=== PATIENT | male | born 1935 | race Caucasian/White ===

== ENCOUNTER 2020-12-26 08:50 | Observation (INO) ==
--- NOTE | 2020-12-02 13:43 | PAT Medication Instructions ---
Medication Instructions Date of Service December 02, 2020 Home Medications atenolol 25 mg tablet 25 mg PO QAM vitamins A,C,W-pqsk-zbyvtx [PreserVision AREDS] 1 cap PO AMPM STOP taking 2 weeks before surgery vitamins A,C,U-feqa-nzcrwo [PreserVision AREDS] 1 cap PO AMPM Take morning of surgery With a small sip of water, OTHERWISE NOTHING TO EAT OR DRINK AFTER MIDNIGHT: atenolol 25 mg tablet 25 mg PO QAM Other Notes If you have any questions please call us at [phone] or [phone] or [phone] or [phone]
--- NOTE | 2020-12-07 13:50 | Anesthesiology Consultation ---
Date of Service December 07, 2020 Assessment & Plan (1) Encounter for pre-operative examination: Chart Review Chart Review: Acceptable Risk for Surgery (pending preop Covid testing ) and Patient seen in Pre Admission Testing Per PAT appt on 12/07/20, patient resides in [facility]. Denies any recent travel. Uses PPE. No known Covid positive contacts or Covid related symptoms. No known Covid infection in the past 90 days. Educated patient to follow up with surgeon's office regarding Covid testing- educated the preop Covid testing usually done 6-7 days prior to surgery. Educated on importance of self quarantining, social distancing and wearing mask in public both for the patient and household contacts. Teaching & Discussion Pre-Anesthesia Teaching/Discussion Notes: Instructed NPO after midnight before surgery,except medications with 15 cc of water. Medication instructions provided according to the [facility] guidelines. History Surgery Operation Date: 12/26/20 11:10 Proposed Procedures p Revision Left Uni Compartment Knee Arthroplasty to Total Knee Arthroplasty - Colin Pruett, DO Height/Weight Height: 5 ft 11 in Weight: 91.3 kg Allergies Allergy/AdvReac Type Severity Reaction Status Date / Time No Known Allergies Allergy Verified 11/22/20 12:15 Medications Home Medications Medication Instructions Recorded Confirmed Last Taken atenolol 25 mg tablet 25 mg PO QAM 08/23/20 11/22/20 Unknown vitamins A,C,Y-romd-exkoye 1 cap PO AMPM 11/22/20 11/22/20 Unknown [PreserVision AREDS] Past Medical History Medical History Hypertension Kidney stones Hx of and passed on own No current issues Macular degeneration Right eye- follows routinely with eye doctor Osteoarthritis Exercise / Class Metabolic Activity III < 4 Walking/Shop/Light housework (no chest pain or SOB with flat surface ambulation ) Past Surgical History Surgical History 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 No hx of seizures, stroke, MS. No hx of blood clots or blood transfusions Physical Exam Vital Signs VITALS BP 126/76 P 67 TEMP 98.6 SP02 96% RESP 16 Constitutional no acute distress ENMT Mouth: + small oral opening; no TMJ clicking Thyromental Distance: > or= 3.5 Finger Breadths (3.5) Mallampati Class: II Caps and crowns to molars Neck + limited neck extension (moderate ) Respiratory normal respiratory effort; no respiratory distress Auscultation: lungs clear to auscultation bilaterally; no wheezes Cardiovascular Rate/Rhythm: regular rate and regular rhythm Heart Sounds: no murmur Vessels: no carotid bruit Musculoskeletal Spine: no pain with cervical ROM Extremities: extremities normal to inspection Psychiatric Orientation: alert Testing Laboratory Results 12/07/20 14:11 12/07/20 14:11 PT 9.9 Seconds (9.0-12.0) 12/07/20 14:11 INR 1.0 (0.9-1.1) 12/07/20 14:11 APTT 27.5 Seconds (21.0-31.0) 12/07/20 14:11 Blood Type O Positive 12/07/20 14:11 Antibody Screen NEGATIVE 12/07/20 14:11 Electrocardiogram Date: 12/07/20 Sinus rhythm with first-degree AV block at 65 bpm. Left axis deviation. Chest X-Ray Date: 12/07/20 Mild cardiomegaly with no acute cardiopulmonary abnormality. There is elevation of the right hemidiaphragm with associated right basilar atelectasis..
[2020-12-07 14:37] LABS: Basophils # (auto) 0.02 K/uL (0-0.2); Basophils % (auto) 0.3 %; Eosinophils # (auto) 0.09 K/uL (0-0.5); Eosinophils % (auto) 1.2 %; Hematocrit (blood only) 44.7 % (42-52); Hemoglobin 15.2 g/dL (14.0-18.0); Immature Granulocytes # (auto) 0.01 K/uL (0.00-0.02); Immature Granulocytes % (auto) 0.1 %; Lymphocytes # (auto) 1.14 K/uL (1.2-3.4); Lymphocytes % (auto) 15.1 %; Mean Corpuscular Volume 97.2 fL (80-100); Mean Platelet Volume 11.1 fL (7.4-10.4); Monocytes % (auto) 10.6 %; Neutrophils % (auto) 72.7 %; Platelet Count 187 K/uL (130-400); RDW Coefficient of Variation 12.7 % (11.5-14.5); RDW Standard Deviation 45.4 fL (36.4-46.3); White Blood Count 7.56 K/uL (4.8-10.8)
--- NOTE | 2020-12-07 14:41 | XRay Report ---
TWO VIEW CHEST CLINICAL HISTORY: Preoperative examination. FINDINGS: PA and lateral chest radiographs are obtained. No prior studies are available for compariso n at the time of dictation. The heart is mildly enlarged noting atherosclerotic calcification of the thoracic aorta. There is elevation of the right hemidiaphragm with associated right basilar atelecta sis. No airspace consolidation or pleural effusion is identified. There is no pneumothorax. The bony thorax appears intact. Degenerative change is noted in the shoulders and thoracic spine. IMPRESSION: 1. Mild cardiomegaly with no acute cardiopulmonary abnormality. 2. There is elevation of the right hemidiaphragm with associated right basilar atelectasis.. ACT 112: Negative or not required by law. Electronically signed by: Ted Mondragon M.D. 12/07/2020 2:40 PM
[2020-12-07 14:47] LABS: Partial Thromboplastin Time 27.5 Seconds (21.0-31.0); Prothrombin Time 9.9 Seconds (9.0-12.0)
[2020-12-07 17:23] LABS: BUN Creatinine Ratio 22.5 (10-20); Calcium 9.2 mg/dl (8.5-10.1); Creatinine Clr Calc Pharmacy 47.8 ml/min; Est GFR (African American) 56.5; Est GFR (Non-African American) 48.7; Potassium 4.4 mmol/L (3.5-5.1)
--- NOTE | 2020-12-08 16:59 | Electrocardiogram Report ---
Test Reason : Blood Pressure : / mmHG Vent. Rate : 065 BPM Atrial Rate : 065 BPM P-R Int : 236 ms QRS Dur : 108 ms QT Int : 416 ms P-R-T Axes : -12 -34 049 degrees QTc Int : 432 ms Sinus rhythm with 1st degree A-V block Left axis deviation Abnormal ECG No previous ECGs available Confirmed by Nilton Higgins ([id number]) on 12/08/2020 4:59:24 PM Referred By: Colin Pruett Confirmed By:Shad Higgins
--- NOTE | 2020-12-22 08:50 | History & Physical Report ---
Date of Service December 22, 2020 Assessment & Plan (1) Osteoarthritis of left knee: We will proceed with a removal of the partial knee replacement and a conversion to a total knee arthroplasty. Postoperatively he will be kept overnight in the hospital for postoperative medical management. He will be placed on aspirin for DVT prophylaxis. He plans to use energy physical therapy upon discharge. 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 Primary Care Provider: Eulalio Beal MD Anibal is a pleasant 85-year-old male who had a left partial knee replacement done in [place] about 5 years ago. Unfortunately he has been having pain since. He constantly has a low level of knee pain but when he twists or turns it becomes very painful. He almost falls to the ground. X-rays and clinical examination have been diagnostic for some arthritis of the left knee. We gave him injections in the left knee and completely took care of his symptoms but only lasted briefly. After failing conservative treatment, he elected to proceed with a removal of hardware and conversion to a left total knee arthroplasty.. Allergies Allergy/AdvReac Type Severity Reaction Status Date / Time No Known Allergies Allergy Verified 12/13/20 15:35 Home Medications Medication Instructions Recorded Confirmed Type atenolol 25 mg tablet 25 mg PO QAM 08/23/20 12/13/20 History vitamins A,C,H-juno-exbtlm 1 cap PO AMPM 11/22/20 12/13/20 History [PreserVision AREDS] hydrocodone 5 mg-acetaminophen 325 1 tab PO Q6 PRN #30 tab 12/09/20 12/13/20 Rx mg tablet Past Med/Surg History Medical History Hypertension Kidney stones Hx of and passed on own No current issues Macular degeneration Right eye- follows routinely with eye doctor Osteoarthritis Surgical History 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 S/P cataract surgery Family History Father Myocardial infarction Mother Myocardial infarction Brother Melanoma Denies family history of Ovarian cancer Prostate cancer Breast cancer Colorectal cancer Social History Smoking Status: Never smoker Second Hand Exposure: No; Hx Alcohol Use: Yes Alcohol type: wine Hx Substance Use: No Preferred Language: Danish Communication Ability: Effective Visual Impairment: No Limitations Hearing Ability: Normal Hands And Dial Inspector Required: No Beliefs That Will Affect Care: None marital status: Life Partner Current Living Situation: Significant Other current occupational status: retired Feels Safe at Home: Yes Childhood Exposure to Second-Hand Smoke: No Dental Care, Regularly: Yes Physical Activity Frequency: 1-2 Times per Week Seatbelt Use: always Sunscreen Use: No Assistive Devices: Glasses Review of Systems All systems reviewed & are unremarkable except as noted in HPI & below. Physical Exam On physical examination of the left knee, there is no signs of infection. He has decent motion of 0 to 120 degrees. Is no effusion. He has pain over the distal medial and lateral femoral condyles. Is a lot of pain along the medial joint line as well.. Constitutional WD/WN, vitals as above Eyes PERRL, conjunctivae normal, anicteric sclerae ENMT external ear and nose normal, oropharynx normal Neck trachea midline, no thyromegaly Respiratory normal respiratory effort Cardiovascular RRR, no murmur, no edema Gastrointestinal (Abdomen) normal bowel sounds, soft, nontender, no hepatosplenomegaly Psychiatric A+Ox3, euthymic affect Results & Data Results & Data Laboratory Results . Diagnostic Findings X-rays of the left knee show a fairly well-placed left unicompartmental knee arthroplasty. There are some questionable loosening of the component. There is some patellofemoral arthritis. There is a little arthritis in the lateral compartment.. PG Care Time/CCT Total # of Minutes Spent Total Time Spent with Patient: Total time spent is greater than 50% in coordination of care (as documented) at patient's floor/unit and/or counseling patient: Coding Level of Care Code None Diagnoses Osteoarthritis of left knee M17.12
[~2020-12-26 08:50] MED LIST: ACETAMINOPHEN 500 MG TAB PO SCH; BUPIVACAINE 0.5 % 5 MG/1 ML PF 10ML VIAL ONE; FAMOTIDINE 20 MG TAB PO SCH; GABAPENTIN 300 MG CAP PO SCH; LR 500ML BOLUS, THEN 15ML/HR IV SCH; LR 60ML/HR IV SCH; ROPIVACAINE 0.5% HCL/PF 150 MG, BUPIVACAINE 0.75% MPF 20 ML, EPINEPHrine 30MG/30ML (OR ... INSTIL SCH; TRANEXAMIC ACID 1,000 MG **IV Intra-op IV SCH; TRANEXAMIC ACID 1,000 MG **IV Pre-op IV SCH; ceFAZolin 2000MG 2,000 MG/15 ML SYR IV SCH; dexAMETHasone 4 MG TAB PO SCH
--- NOTE | 2020-12-26 09:30 | History & Physical Bridge Note ---
Date of Service December 26, 2020 History & Physical Bridge Note I have examined the patient, reviewed the History & Physical and in the interval since the performance of the History & Physical I have noted the following changes of clinical significance: no changes noted
[2020-12-26] MEDS ORDERED: fentaNYL citrate 100 MCG/2 ML VIAL ONE (10:24)
[2020-12-26] MEDS ORDERED: MIDAZOLAM HCL 1 MG/ML 2ML VIAL ONE (10:24)
[2020-12-26] MEDS ORDERED: ONDANSETRON INJ 2 MG/ML 2 ML VIAL IV PRN ×2 (10:45→14:32)
[2020-12-26] MEDS ORDERED: ePHEDrine sulfate 50 MG/ML AMP IV PRN (10:45)
[2020-12-26] MEDS ORDERED: ATROPINE SULFATE 0.1 MG/ML 10ML SYR IV PRN (10:45)
[2020-12-26] MEDS ORDERED: fentaNYL citrate 100 MCG/2 ML VIAL IV PRN (10:45)
[2020-12-26] MEDS ORDERED: ORTHO JOINT ANESTHETIC ONE (11:15)
[2020-12-26] MEDS ORDERED: ePHEDrine sulfate 50 MG/ML SYR ONE (13:27)
[2020-12-26] MEDS ORDERED: PROPOFOL IV EMULSION 10 MG/ML 20 ML VIAL IV ONE (13:27)
[2020-12-26] MEDS ORDERED: LIDOCAINE HCL 2% 2 ML VIAL/AMP(20MG/ML) INFIL ONE (13:27)
--- NOTE | 2020-12-26 13:29 | Operative Report ---
PG Post Operative Report Pre & Post Diagnosis Operation Date: 12/26/20 11:15 Pre-Op Diagnosis: Painful Left Uni Compartment Knee Arthroplasty Post-Op Diagnosis: Painful Left Uni Compartment Knee Arthroplasty with some subtle loosening of the femoral component I identified the patient and participated in the time-out.: Yes Procedure Operation Date: 12/26/20 11:15 Actual Procedures p Revision Left Uni Compartment Knee Arthroplasty to Total Knee Arthroplasty(Left) - Colin Pruett DO Surgeon Colin Pruett DO [employer] Officer Colin Blanchard PAC Estimated Blood Loss 10 Findings Consistent with Post-Op Diagnosis Specimens None Complications none Disposition Disposition: Recovery Room Indications Anibal is a pleasant 85-year-old male who underwent a partial knee replacement of his left knee in [place] about 5 years ago. Unfortunate is always had pain in it. It is gotten much worse recently. X-rays did not look too bad. Infection work-up was negative. An injection in his knee took care of his pain. Unfortunate his pain returned. He could not live with the pain the way it was. He was afraid he was going to fall. After extensive discussions in the office, he elected to proceed with a removal of the partial knee replacement and a conversion to a left total knee arthroplasty. Description of Procedure Implants used: I used a Jaron Persona total knee arthroplasty system with a size 9 standard posterior stabilized femur, F tibia with a 30 mm stem, 35 patella, and a size 16 CPS polyethylene bearing. All components were cemented in place with Simplex HV cement. Anibal arrived [facility] for the above procedure. He was seen in the preoperative holding area and the operative extremity was identified and signed. He was given a preoperative antibiotic, TXA, a spinal anesthetic and an adductor nerve block. He was taken back to the operating room and laid on the table in supine position. He was given basic sedation. The operative knee was then prepped and draped in sterile fashion. A timeout was done, and the patient and the operative extremity was properly identified. A midline incision was made directly over the patella in line with the previous incision. Dissection was taken down to the extensor mechanism. A subvastus arthrotomy was used. The medial retinaculum was released and the fat pad was mostly excised. The knee was flexed and the ACL, PCL, and lateral meniscus were removed. The unicompartmental knee arthroplasty was then removed with flexible osteotomes. The femoral component was easily removed. It was not grossly loose but it did come off very easily. The tibial component was well cemented. A drill was sent down the center of the femoral canal followed by an intramedullary lucia. Off that lucia a distal femoral cutting block was placed. 9 mm was resected off the distal femur at 5 of valgus. A posterior referencing AP sizing guide was then placed on the distal femur. I used the epicondylar access for referencing my external rotation. The femur measured to be a size 9. 2 drill holes were placed in 3 of external rotation. A 4-in-1 cutting block was then impacted into place. Anterior, posterior, and chamfer cuts were then made. A box was then resected for the posterior stabilizing component. The proximal tibia was then exposed. An external tibial alignment guide was placed. A tibial cut guide was then anchored in place and the proximal tibia was then resected. The posterior aspect of the knee was then opened up and any additional meniscus fragments and osteophytes were removed. The tibia measured to be a size F. The tibial plate was then placed in the appropriate rotation and the tibia was drilled and punched. Trial components were then placed. I used a size 16 CPS polyethylene insert. The knee was brought through a full range of motion and felt to be stable. The peg holes for the femoral component were then drilled. The patella was then everted and 9 mm was resected off the posterior aspect of the patella. The patella measured to be a size 35. 3 peg holes were then drilled. A trial patella was placed. The knee was once again brought through a full range of motion and felt to be stable. Trial components were then removed. The surrounding soft tissues were injected with 100 cc of an orthopedic pain control cocktail. All components were then cemented into place with Simplex HV cement. The final polyethylene insert was then snapped into place. Once cement was dry the tourniquet was deflated. Hemostasis was obtained. A dilute betadyne lavage was then done for 3 minutes. The joint was then irrigated with normal saline solution. The subvastus arthrotomy was then closed with #1 Vicryl suture. The skin was closed with 2-0 Vicryl, 3-0V lock suture, and indy. A Silverlon and a soft compressive dressing were placed. He was then transferred to a hospital bed and taken to the postanesthesia care unit in stable condition. He tolerated the procedure well. Colin Blanchard PA-C, was present for the entire procedure. He was critical for patient positioning, prepping, draping, retraction exposure, wound closure and application of sterile dressing. I attest to the content of the Intraoperative Record and any orders documented therein. Any exceptions are noted below.
--- NOTE | 2020-12-26 14:08 | Anesthesiology Progress Note ---
Date of Service December 26, 2020 Anesthesia Post Procedure Vital Signs Vital Signs: Temp Pulse Pulse Resp BP BP Pulse Ox 12/26/20 14:00 63 14 118/63 97 12/26/20 13:52 97.7 F 62 14 99/68 L 95 12/26/20 09:48 97.7 F 57 L 18 168/84 H 99 Pain Intensity Left Knee: Pain Intensity: 3 Transfer of Care Handoff Completed per policy Notes Mental Status: alert / awake / arousable and participated in evaluation Patient Amnestic to Procedure: Yes Nausea / Vomiting: adequately controlled Pain: adequately controlled Airway Patency, RR, SpO2: stable & adequate BP & HR: stable & adequate Hydration State: stable & adequate Neuraxial Anesthesia: was administered and sensory block is resolving Anesthetic Complications: no major complications apparent and Pt Satisfied with anesthetic care
--- NOTE | 2020-12-26 14:10 | XRay Report ---
TWO VIEWS LEFT KNEE CLINICAL HISTORY: Postoperative examination. FINDINGS: AP and crosstable lateral portable views of the left knee are obtained. A left knee arthrop lasty is in near anatomic alignment. There has been undersurface remodeling of the patella. No acute fracture is seen. There are expected postoperative changes around the knee including skin clips, soft tissue edema, and subcutaneous gas. IMPRESSION: Expected postoperative changes status post left knee arthroplasty. No acute fracture is s een. ACT 112: Negative or not required by law. Electronically signed by: Ted Mondragon M.D. 12/26/2020 2:09 PM
[2020-12-26] MEDS ORDERED: NALOXONE HCL 0.4 MG/1 ML VIAL/CARP IV PRN (14:32)
[2020-12-26] MEDS ORDERED: bisacodyL 10 MG SUPP PR PRN (14:32)
[2020-12-26] MEDS ORDERED: MAGNESIUM HYDROXIDE SUSP 30 ML UDC PO PRN (14:32)
[2020-12-26] MEDS ORDERED: HYDROmorphone INJ 0.5 MG/0.5 ML SYR IV PRN (14:32)
[2020-12-26] MEDS ORDERED: METOCLOPRAMIDE HCL INJ 5 MG/ML 2 ML VIAL IV PRN (14:32)
[2020-12-26] MEDS ORDERED: oxyCODONE HCL IR 5 MG TAB (IMMEDIATE RELEASE) PO PRN (14:32)
[2020-12-26] MEDS: ACETAMINOPHEN 500 MG TAB PO SCH ×2 (15:29→21:09)
[2020-12-26] MEDS: SODIUM CHLORIDE 0.9% 1000ML 1,000 ML IV SCH (15:30)
[2020-12-26] MEDS: KETOROLAC TROMETHAMINE 15 MG/ML VIAL IV SCH ×2 (15:31→21:07)
[2020-12-26] MEDS ORDERED: SENNA 8.6 MG TAB PO SCH (21:00)
[2020-12-26] MEDS: ceFAZolin 2000MG 2,000 MG/15 ML SYR IV SCH (21:07)
[2020-12-26] MEDS: DOCUSATE SODIUM 100 MG CAP PO SCH (21:08)
[2020-12-26] MEDS: ASPIRIN 81 MG ECTAB PO SCH (21:08)
[2020-12-27] MEDS: SODIUM CHLORIDE 0.9% 1000ML 1,000 ML IV SCH (01:57)
[2020-12-27] MEDS: KETOROLAC TROMETHAMINE 15 MG/ML VIAL IV SCH ×2 (02:45→08:58)
[2020-12-27] MEDS: ceFAZolin 2000MG 2,000 MG/15 ML SYR IV SCH (04:33)
[2020-12-27] MEDS: ACETAMINOPHEN 500 MG TAB PO SCH (05:48)
--- NOTE | 2020-12-27 07:09 | Orthopedic Progress Note ---
Date of Service December 27, 2020 Assessment & Plan (1) Status post revision of total replacement of left knee: Overall he is doing very well. Is not having much pain in the left knee. He will be seen by physical therapy this morning for ambulation and range of motion exercises. He is on aspirin for DVT prophylaxis. He can be discharged home later today. He will follow-up with orthopedics in 2 weeks. The Tomasz wrap can be removed after physical therapy today. Hannah Barnett was seen and examined at bedside this morning. Overall he is doing very well. Is not having much pain in the left knee. He has been up and ambulating around the nurses station. He has no complaints.. Review of Systems All systems reviewed & are unremarkable except as noted in HPI & below. Physical Exam On physical examination of the left knee, the dressing is clean and dry. His leg is out in full extension. He has active dorsiflexion plantarflexion of his left ankle.. Results & Data Results & Data Laboratory Results . Diagnostic Findings Postoperative x-rays of the left knee show the prosthesis to be in anatomic alignment without any evidence of fracture, dislocation, or loosening.. PG Care Time/CCT Total # of Minutes Spent Total Time Spent with Patient: Total time spent is greater than 50% in coordination of care (as documented) at patient's floor/unit and/or counseling patient: Coding Level of Care Code 06591 Post Operative Follow-Up Diagnoses Status post revision of total replacement of left knee Z96.652
--- NOTE | 2020-12-27 07:10 | Discharge Summary ---
Date of Service December 27, 2020 Principal Diagnosis Same as "Discharge Diagnosis" noted below under Discharge Instructions. Discharge Exam On physical examination of the left knee, the dressing is clean and dry. His leg is out in full extension. He has active dorsiflexion plantarflexion of his left ankle.. Discharge Data Consultations 12/26/20 14:32 Consult Case Management - Discharge Planning Routine Procedures Performed Operation Date: 12/26/20 11:15 Actual Procedures p Revision Left Uni Compartment Knee Arthroplasty to Total Knee Arthroplasty(Left) - Colin Pruett DO Ordered Studies 12/26/20 05:00 US - OR guided needle placemen Routine Hospital Course (1) Status post revision of total replacement of left knee: On December 26, 2020 Anibal arrived at [facility] and underwent a left total knee arthroplasty without complication. He had a spinal anesthetic. Postoperatively he was started on aspirin for DVT prophylaxis and transferred to the general acetic floors. His hospital course was uneventful. On postop day #1 his vital signs were stable and his pain was well controlled. He was able to participate well with physical therapy doing ambulation and range of motion exercises. He was then discharged home. He will follow-up with orthopedics in 2 weeks. PG Care Time/CCT Total # of Minutes Spent Total Time Spent with Patient: Total time spent is greater than 50% in coordination of care (as documented) at patient's floor/unit and/or counseling patient: Discharge Plan Discharge Items Patient Disposition: Home - Home Health Services Reason For Visit: Painful Left Uni Compartment Knee Arthroplasty Discharge Diagnosis: Left knee replacement Activity: Resume your previous activity Non-emergency contact: Surgeon Call non-emergency contact if: your wound has increased redness and your wound has increased drainage Follow-up/Referrals: Eulalio Beal MD [Primary Care Provider] - Diet: Regular Addtl Attending Provider Instructions: Activity and Therapy Recommendations: * If you are using [facility] then therapy will be provided at your home until they feel you have accomplished all of your goals. * If you are using [facility] then Physical Therapy will be provided until they feel you are ready to start Outpatient Physical Therapy. * If you are not using home therapy then Outpatient Physical Therapy should start about 3-5 days from your day of surgery. Therapy will last about 6-10 weeks * It is important not to put a pillow under your knee when you are relaxing or sleeping. It is just as important to make sure you are getting your knee perfectly straight as it is to regain your knee bend. * You were shown a series of exercises in the hospital. Do these exercises three times each day including the exercises you were shown in physical therapy. * Get up and walk several times each day. For the first four weeks, try not to stand or walk for more than one hour at a time. If you do stand or walk for more than one hour, you will not hurt anything, but your leg will likely swell. * As you feel comfortable, you may change from the walker or crutches to a cane and then to independent walking. Medications: * Narcotic You will likely be sent home from the hospital with a prescription for the narcotic pain medication that worked best throughout your stay. * Aspirin Most patients will be required to take Aspirin 81mg twice a day for 6 weeks after surgery. This is obtained [id number] and a prescription is not necessary. * Other medications may be prescribed for specific circumstances. If you have any questions, please call the office at . * Resume previous home medications unless otherwise instructed TEDs/Elastic Stockings: The white elastic stockings help limit swelling and prevent blood clots from forming in your legs.~ The more you wear them, the more they work. Wear them for six weeks. Dressing Care: Leave the Silverlon dressing in place for 7 days. After 7 days you may remove the dressing. If the incision is not draining then you may leave the indy open to air. If there is a little bit of drainage or if the indy are getting stuck on your clothing then cover the incision with a dry dressing. The indy will be removed at your 2 week follow-up appointment. Showering: You may shower with the Silverlon dressing in place. Do not let the shower spray hit the dressing directly. Pat the Silverlon dressing dry. If the dressing becomes wet underneath, then simply remove the dressing. Keep the incision dry until you are 7 days out from the day of surgery. After 7 days you may remove the Silverlon dressing and shower with the indy exposed. Let soapy water run over the indy and pat them dry. Do not scrub or soak the incision. Things To Watch For: * Drainage from the incision site that occurs more than one week after your surgery. * Increased redness at the incision site. * Fever above 102 degrees Fahrenheit. * Unusual chest pain or shortness of breath. * Call [facility] at with any of the above problems Follow-Up Visit: Follow-up with Dr. Pruett's PA (Colin Blanchard) 2-3 weeks after your day of surgery. He will remove your indy and answer any questions. If you have any additional questions or concerns, Dr Pruett is usually in the office at the same time and will be available An appointment was probably scheduled when you signed-up for surgery in the office. If you have any questions call Office Instructions: More detailed instructions as well as Frequently Asked Questions were provided in a folder by our office when you signed-up for surgery. Please review these instructions when you get home. If you have any further questions or concerns, please feel free to call the office at [phone] Pending Studies at Discharge: No Stand-Alone Forms: My [facility] Medications and DC Order Prescriptions: New oxycodone 5 mg Tablet 5 mg PO Q4H PRN (Reason: pain) Qty: 40 RF: 0 Continued atenolol 25 mg tablet 25 mg PO QAM RF: 0 PreserVision AREDS [id number] Capsule 1 cap PO AMPM RF: 0 Discontinued hydrocodone-acetaminophen 5-325 mg tablet 1 tab PO Q6 PRN (Reason: pain) Qty: 30 RF: 0 Discharge Orders: Discharge Order (Routine); Ordered 12/27/20 Ordered By: Colin Pruett Admission Data Admit Date/Time: 12/26/20 13:54 Attending Provider: Colin Pruett Admit Provider: Colin Pruett Primary Care Provider: Eulalio Beal
[2020-12-27] MEDS ORDERED: dexAMETHasone 4 MG TAB PO SCH (08:00)
[2020-12-27] MEDS: DOCUSATE SODIUM 100 MG CAP PO SCH (08:56)
[2020-12-27] MEDS: ASPIRIN 81 MG ECTAB PO SCH (08:56)
[2020-12-27] MEDS ORDERED: ATENOLOL 25 MG TABLET PO SCH (09:00)
[2020-12-27] MEDS ORDERED: MULTIVITAMIN TAB PO SCH (09:00)
== END 2020-12-27 13:30 | disposition home health service (06) ==
LOC: ASU 08:50 → 3E 08:50

== ENCOUNTER 2021-11-10 03:46 | Inpatient (IN) ==
[2021-11-10] MEDS ORDERED: METOPROLOL TARTRATE 1 MG/ML VIAL IV PRN (04:37)
[2021-11-10 04:53] LABS: Basophils # (auto) 0.01 K/uL (0-0.2); Basophils % (auto) 0.1 %; Eosinophils # (auto) 0.03 K/uL (0-0.5); Eosinophils % (auto) 0.3 %; Hematocrit (blood only) 46.6 % (42-52); Hemoglobin 15.7 g/dL (14.0-18.0); Immature Granulocytes # (auto) 0.02 K/uL (0.00-0.02); Immature Granulocytes % (auto) 0.2 %; Lymphocytes % (auto) 9.3 %; Mean Corpuscular Hemoglobin 32.7 pg (25-34); Mean Corpuscular Hgb Conc 33.7 g/dL (32-36); Mean Corpuscular Volume 97.1 fL (80-100); Mean Platelet Volume 11.9 fL (7.4-10.4); Monocytes # (auto) 0.98 K/uL (0.11-0.59); Monocytes % (auto) 8.3 %; Neutrophils # (auto) 9.71 K/uL (1.4-6.5); Neutrophils % (auto) 81.8 %; Platelet Count 182 K/uL (130-400); RDW Standard Deviation 46.3 fL (36.4-46.3); White Blood Count 11.85 K/uL (4.8-10.8)
[2021-11-10 05:01] LABS: Prothrombin Time 9.8 Seconds (9.0-12.0)
[2021-11-10 05:21] LABS: Troponin I 0.03 ng/ml (0-0.04)
[2021-11-10 05:37] LABS: Appearance Urine Clear (Clear); Bacteria Urine Automated Negative (Negative); Bilirubin Urine Negative (Negative); Blood Urine Trace (Negative); Color Urine Yellow; Glucose Urine UA Negative (Negative); Ketones Urine 1+ (Negative); Leukocyte Esterase Urine 1+ (Negative); Nitrite Urine Negative (Negative); Protein Urine Negative (Negative); RBC Urine Automated 0-4 /hpf (0-4); Specific Gravity Urine 1.017 (1.000-1.030); Urobilinogen Urine Negative (Negative); pH Urine 5.5 (4.5-7.5)
[2021-11-10 05:46] LABS: Albumin Globulin Ratio 1.5 (0.9-2); Albumin Level 3.8 gm/dl (3.4-5.0); BUN Creatinine Ratio 15.7 (10-20); Bilirubin,Total 0.8 mg/dl (0.2-1.0); Creatinine Clr Calc Pharmacy 45.3 ml/min; Est GFR (African American) 53.1 ml/min; Est GFR (Non-African American) 45.8 ml/min; Globulin 2.6 gm/dl (2.5-4.0); Magnesium 1.9 mg/dl (1.7-2.4); Total Protein 6.4 gm/dl (6.0-8.3)
[2021-11-10] MEDS ORDERED: FAMOTIDINE 20MG/5ML IV PUSH IV STA (06:13)
--- NOTE | 2021-11-10 06:32 | XRay Report ---
XR knee LT 1 or 2V routine CLINICAL HISTORY: Trauma COMPARISON: Left knee radiographs December 26, 2020. FINDINGS: Alignment of the total left knee arthroplasty is anatomic. There is no acute fracture. No periprosthetic lucency is present. There may be mild anterior knee soft tissue swelling. Trace joint effusion. IMPRESSION: 1. Intact total left knee arthroplasty. No periprosthetic fracture or lucency. 2. Trace joint effusion. ACT 112: Negative or not required by law. Electronically signed by: Markel Lira M.D. 11/10/2021 6:30 AM
--- NOTE | 2021-11-10 06:34 | XRay Report ---
XR chest 1V portable CLINICAL HISTORY: weakness COMPARISON STUDY: Chest radiograph October 05, 2021. FINDINGS: Patient is rotated. Lung volumes are diminished. Elevation of the right hemidiaphragm is un changed. Right basilar opacity favors atelectasis. There is no pneumothorax or pleural effusion. Ther e is no consolidation to suggest pneumonia. Cardiomediastinal silhouette is stable. 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 IMPRESSION: 1. No acute findings. 2. Stable elevation of the right hemidiaphragm with right basilar atelectasis. ACT 112: Negative or not required by law. Electronically signed by: Markel Lira M.D. 11/10/2021 6:32 AM
--- NOTE | 2021-11-10 06:37 | CT Scan Report ---
CT OF THE CERVICAL SPINE WITHOUT CONTRAST CLINICAL HISTORY: [facility] 2 weeks ago COMPARISON STUDY: No previous studies for comparison. TECHNIQUE: Helical axial images of the cervical spine were obtained without IV contrast. Sagittal a nd coronal reconstructions were viewed. Automated exposure control was utilized for the study. A do se lowering technique was utilized adhering to the principles of ALARA. FINDINGS: There is reversal of the normal cervical lordosis. Slight anterolisthesis of C3 on C4 and C 4 on C5 is noted. There is severe multilevel facet arthrosis and severe multilevel disc space narrowi ng and osteophytosis. There is no prevertebral edema. There is no acute fracture. Small amount of sec retions are partially visualized within the trachea. IMPRESSION: 1. No acute cervical spine fracture or subluxation. 2. 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 ACT 112: Negative or not required by law. Electronically signed by: Markel Lira M.D. 11/10/2021 6:35 AM
[2021-11-10 06:43] LABS: Potassium 4.1 mmol/L (3.5-5.1)
--- NOTE | 2021-11-10 06:44 | Emergency Department Note ---
Impression & Plan New onset a-fib, CHI (closed head injury), AMS (altered mental status), Frequent falls ED Provider Note CHIEF COMPLAINT: Fall, facial contusion, AMS HISTORY OF PRESENT ILLNESS: This 85 yo male patient presents to the emergency department with complaints of a fall. Patient apparently fell 2 weeks ago outside of his doctor's office with complaints of some confusion and "acting strange" per his partner after the fall. He was found curled up in a ball complaining of left knee pain early this morning. It seems as though he fell again. He has some dried blood noted to the ear and an abrasion to the left shoulder. There is an abrasion over the left knee. Patient does not recall the incident. Much of the history is taken per EMS and nursing report. REVIEW OF SYSTEMS: Please refer to HPI, at least 10 systems reviewed and otherwise negative. Patient is somewhat unreliable secondary to his poor memory of the incident and recent weeks. ALLERGIES: see below MEDICATIONS: see below PMH: see below SOCIAL HISTORY: see below DDx: Infection, dehydration, metabolic abnormality, hypo/hyperglycemia, electrolyte disturbance, anemia, hypoxia, cardiac sources, intracerebral event, toxicologic, neurologic, as well as other pathologies. PHYSICAL EXAM: Vital signs reviewed. General: elderly, chronically ill-appearing 85-year-old male, in no significant distress. HEENT: No scleral icterus, PERRLA, neck supple. Older L periorbital facial bruising, abrasion noted over the left forehead, dried blood over the left ear. Cardiovascular: Irregular but rate controlled, no extra sounds. Pulmonary: Clear to auscultation bilaterally, normal work of breathing. Abdomen: Soft, nontender, nondistended, positive bowel sounds. Musculoskeletal: Atraumatic, no peripheral edema. Left knee with an abrasion and mild swelling, full range of motion of both lower extremities without diffic ulty. Nontender to palpation over the cervical, thoracic and lumbar spines. Neurologic: Patient awake alert and aware of place and person. Unaware of recent events (this morning) Skin: Warm, dry, no rash EMERGENCY DEPARTMENT COURSE/MDM: This patient was evaluated and appeared to be in no significant distress. IV access was obtained and laboratory work was drawn. Patient was placed on a bleach chlorinator showed atrial fibrillation. CT imaging of the head and neck was performed and reveals no evidence of acute intracranial abnormality, no fracture of the cervical spine. X-ray of the left leg was performed and reveals a total knee arthroplasty without evidence of acute bony fracture. Laboratory work is fairly reassuring. Pt was medicated with metoprolol 5 mg IV after HR began to climb. Pt was d/w the hospitalist service for further management. MONITORING: An order for cardiac monitoring was placed and the patient is noted to be in a atrial fibrillation at 81 beats per minute. RADIOLOGY: see below EKG: Atrial fibrillation with RVR at 112 bpm. left axis deviation, nonspecific ST abnormality, atrial fib has replaced a sinus rhythm when compared to 12/07/20. DISPO: Admit Past Med/Surg History Medical History Chronic knee pain after total replacement of left knee joint Hypertension Kidney stones Hx of and passed on own No current issues Macular degeneration Right eye- follows routinely with eye doctor Surgical History History of total left knee replacement 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 S/P cataract surgery Family History Father Myocardial infarction Mother Myocardial infarction Stroke Brother Melanoma Cancer Other No family history of adverse response to anesthesia No family history of bleeding disorder Denies family history of Ovarian cancer Prostate cancer Breast cancer Colorectal cancer Social History Smoking Status: Unknown if ever smoked Second Hand Exposure: No; Hx Alcohol Use: Yes Alcohol type: wine Hx Substance Use: No Preferred Language: Austrian Communication Ability: Effective Visual Impairment: No Limitations Hearing Ability: Normal Hvac Lead Required: No Beliefs That Will Affect Care: None marital status: Life Partner Current Living Situation: Significant Other current occupational status: retired Feels Safe at Home: Yes Childhood Exposure to Second-Hand Smoke: No Dental Care, Regularly: Yes Physical Activity Frequency: 1-2 Times per Week Seatbelt Use: always Sunscreen Use: No Assistive Devices: Glasses and Walker Allergies Allergies Allergy/AdvReac Type Severity Reaction Status Date / Time No Known Drug Allergies Allergy Verified 11/08/21 08:58 Home Meds Home Medications Medication Instructions Recorded Confirmed vitamins A,C,O-[id number] 14,320 1 cap PO AMPM 11/22/20 11/08/21 unit-226 mg-200 unit capsule (PreserVision AREDS) acetaminophen 500 mg oral powder 500 mg PO Q6H PRN 06/05/21 11/08/21 packet (Tylenol Extra Strength) Previous Rx's Medication Instructions Recorded atenolol 25 mg tablet 25 mg PO QAM #90 tab 06/16/21 diclofenac sodium 1 % topical gel 4 g TOPICAL QID #100 g 09/05/21 (Voltaren Arthritis Pain) famotidine 20 mg tablet 20 mg PO BID #60 tab 11/08/21 levocetirizine 5 mg tablet 5 mg PO DAILY #30 tab 11/08/21 triamcinolone acetonide 0.1 % 1 applic TOPICAL BID #80 g 11/08/21 topical ointment Results & Data (ED) Vital Signs Vital Signs - 24 hr 11/10/21 03:47 11/10/21 03:59 11/10/21 04:00 Temperature 37.1 C Temperature Source Oral Pulse Rate 90 80 90 Pulse Rate [Apical] Respiratory Rate 18 20 21 Respiratory Effort / Characteristics Non-Labored Spontaneous Respiratory Depth Normal Blood Pressure 159/100 H 141/78 H Blood Pressure [Right Arm] Blood Pressure Mean 119 99 Blood Pressure Mean [Right Arm] Pulse Oximetry 98 96 Oxygen Delivery Method Room Air Sepsis Recent Fever Within 48 Hours No Sepsis New/Unexplained Change in Mental Status No Sepsis Action Taken by Nursing No Action Required 11/10/21 04:30 11/10/21 05:26 11/10/21 05:48 Temperature Temperature Source Pulse Rate 83 Pulse Rate [Apical] 71 88 Respiratory Rate 22 20 18 Respiratory Effort / Characteristics Respiratory Depth Blood Pressure Blood Pressure [Right Arm] 160/78 H 146/91 H Blood Pressure Mean Blood Pressure Mean [Right Arm] 105 109 Pulse Oximetry 96 95 94 Oxygen Delivery Method Room Air Room Air Sepsis Recent Fever Within 48 Hours Sepsis New/Unexplained Change in Mental Status Sepsis Action Taken by Nursing 11/10/21 05:51 11/10/21 05:57 Temperature Temperature Source Pulse Rate 81 Pulse Rate [Apical] 61 Respiratory Rate 18 Respiratory Effort / Characteristics Respiratory Depth Blood Pressure 146/91 H Blood Pressure [Right Arm] 146/91 H Blood Pressure Mean Blood Pressure Mean [Right Arm] 109 Pulse Oximetry 98 Oxygen Delivery Method Sepsis Recent Fever Within 48 Hours Sepsis New/Unexplained Change in Mental Status Sepsis Action Taken by [facility] Medications Current Medication List: was personally reviewed by me Laboratory Data Attestation: I reviewed the patient's lab results. Result diagrams: 11/10/21 03:56 11/10/21 06:01 Lab Results 11/10/21 11/10/21 11/10/21 Range/Units 03:56 03:56 03:56 WBC 11.85 H (4.8-10.8) K/uL RBC 4.80 (4.7-6.1) M/uL Hgb 15.7 (14.0-18.0) g/dL Hct 46.6 (42-52) % MCV 97.1 (80-100) fL MCH 32.7 (25-34) pg MCHC 33.7 (32-36) g/dL RDW Std Deviation 46.3 (36.4-46.3) fL RDW Coeff of Bhavana 13.0 (11.5-14.5) % Plt Count 182 (130-400) K/uL MPV 11.9 H (7.4-10.4) fL Immature Gran % (Auto) 0.2 % Neut % (Auto) 81.8 % Lymph % (Auto) 9.3 % Mclennan % (Auto) 8.3 % Eos % (Auto) 0.3 % Baso % (Auto) 0.1 % Neut # (Auto) 9.71 H (1.4-6.5) K/uL Lymph # (Auto) 1.10 L (1.2-3.4) K/uL Mclennan # (Auto) 0.98 H (0.11-0.59) K/uL Eos # (Auto) 0.03 (0-0.5) K/uL Baso # (Auto) 0.01 (0-0.2) K/uL Immature Gran # (Auto) 0.02 (0.00-0.02) K/uL PT 9.8 (9.0-12.0) Seconds INR 1.0 (0.9-1.1) Sodium 138 (136-145) mmol/L Potassium (3.5-5.1) mmol/L Chloride 106 (98-107) mmol/L Carbon Dioxide 22 (21-32) mmol/L Anion Gap 10 (3-11) BUN 22 (6-23) mg/dl Creatinine 1.40 (0.6-1.4) mg/dl Est Cr Clr Drug Dosing 45.3 ml/min Est GFR ( Amer) 53.1 ml/min Est GFR (Non-Af Amer) 45.8 ml/min BUN/Creatinine Ratio 15.7 (10-20) Glucose 92 (70-99(Fasting)) mg/dl Calcium 9.0 (8.5-10.1) mg/dl Magnesium 1.9 (1.7-2.4) mg/dl Total Bilirubin 0.8 (0.2-1.0) mg/dl AST (13-39) U/L ALT 15 (7-52) U/L Alkaline Phosphatase 102 (34-104) U/L Troponin I 0.03 (0-0.04) ng/ml Total Protein 6.4 (6.0-8.3) gm/dl Albumin 3.8 (3.4-5.0) gm/dl Globulin 2.6 (2.5-4.0) gm/dl Albumin/Globulin Ratio 1.5 (0.9-2) TSH (0.300-4.500) uIu/ml Urine Color Urine Appearance (Clear) Urine pH (4.5-7.5) Ur Specific Normanna (1.000-1.030) Urine Protein (Negative) Urine Glucose (UA) (Negative) Urine Ketones (Negative) Urine Blood (Negative) Urine Nitrite (Negative) Urine Bilirubin (Negative) Urine Urobilinogen (Negative) Ur Leukocyte Esterase (Negative) Urine WBC (Auto) (0-5) /hpf Urine RBC (Auto) (0-4) /hpf U Hyaline Cast (Auto) (0-5) /lpf U Epithel Cells (Auto) (0-5) /lpf Urine Bacteria (Auto) (Negative) SARS-CoV-2, RNA, NAAT (NEGATIVE) 11/10/21 11/10/21 11/10/21 Range/Units 03:56 05:20 05:20 WBC (4.8-10.8) K/uL RBC (4.7-6.1) M/uL Hgb (14.0-18.0) g/dL Hct (42-52) % MCV (80-100) fL MCH (25-34) pg MCHC (32-36) g/dL RDW Std Deviation (36.4-46.3) fL RDW Coeff of Bhavana (11.5-14.5) % Plt Count (130-400) K/uL MPV (7.4-10.4) fL Immature Gran % (Auto) % Neut % (Auto) % Lymph % (Auto) % Mclennan % (Auto) % Eos % (Auto) % Baso % (Auto) % Neut # (Auto) (1.4-6.5) K/uL Lymph # (Auto) (1.2-3.4) K/uL Mclennan # (Auto) (0.11-0.59) K/uL Eos # (Auto) (0-0.5) K/uL Baso # (Auto) (0-0.2) K/uL Immature Gran # (Auto) (0.00-0.02) K/uL PT (9.0-12.0) Seconds INR (0.9-1.1) Sodium (136-145) mmol/L Potassium (3.5-5.1) mmol/L Chloride (98-107) mmol/L Carbon Dioxide (21-32) mmol/L Anion Gap (3-11) BUN (6-23) mg/dl Creatinine (0.6-1.4) mg/dl Est Cr Clr Drug Dosing ml/min Est GFR ( Amer) ml/min Est GFR (Non-Af Amer) ml/min BUN/Creatinine Ratio (10-20) Glucose (70-99(Fasting)) mg/dl Calcium (8.5-10.1) mg/dl Magnesium (1.7-2.4) mg/dl Total Bilirubin (0.2-1.0) mg/dl AST (13-39) U/L ALT (7-52) U/L Alkaline Phosphatase (34-104) U/L Troponin I (0-0.04) ng/ml Total Protein (6.0-8.3) gm/dl Albumin (3.4-5.0) gm/dl Globulin (2.5-4.0) gm/dl Albumin/Globulin Ratio (0.9-2) TSH 2.793 (0.300-4.500) uIu/ml Urine Color Yellow Urine Appearance Clear (Clear) Urine pH 5.5 (4.5-7.5) Ur Specific Normanna 1.017 (1.000-1.030) Urine Protein Negative (Negative) Urine Glucose (UA) Negative (Negative) Urine Ketones 1+ H (Negative) Urine Blood Trace H (Negative) Urine Nitrite Negative (Negative) Urine Bilirubin Negative (Negative) Urine Urobilinogen Negative (Negative) Ur Leukocyte Esterase 1+ H (Negative) Urine WBC (Auto) 1-5 (0-5) /hpf Urine RBC (Auto) 0-4 (0-4) /hpf U Hyaline Cast (Auto) 1-5 (0-5) /lpf U Epithel Cells (Auto) 10-20 H (0-5) /lpf Urine Bacteria (Auto) Negative (Negative) SARS-CoV-2, RNA, NAAT NEGATIVE (NEGATIVE) 11/10/21 Range/Units 06:01 WBC (4.8-10.8) K/uL RBC (4.7-6.1) M/uL Hgb (14.0-18.0) g/dL Hct (42-52) % MCV (80-100) fL MCH (25-34) pg MCHC (32-36) g/dL RDW Std Deviation (36.4-46.3) fL RDW Coeff of Bhavana (11.5-14.5) % Plt Count (130-400) K/uL MPV (7.4-10.4) fL Immature Gran % (Auto) % Neut % (Auto) % Lymph % (Auto) % Mclennan % (Auto) % Eos % (Auto) % Baso % (Auto) % Neut # (Auto) (1.4-6.5) K/uL Lymph # (Auto) (1.2-3.4) K/uL Mclennan # (Auto) (0.11-0.59) K/uL Eos # (Auto) (0-0.5) K/uL Baso # (Auto) (0-0.2) K/uL Immature Gran # (Auto) (0.00-0.02) K/uL PT (9.0-12.0) Seconds INR (0.9-1.1) Sodium (136-145) mmol/L Potassium 4.1 (3.5-5.1) mmol/L Chloride (98-107) mmol/L Carbon Dioxide (21-32) mmol/L Anion Gap (3-11) BUN (6-23) mg/dl Creatinine (0.6-1.4) mg/dl Est Cr Clr Drug Dosing ml/min Est GFR ( Amer) ml/min Est GFR (Non-Af Amer) ml/min BUN/Creatinine Ratio (10-20) Glucose (70-99(Fasting)) mg/dl Calcium (8.5-10.1) mg/dl Magnesium (1.7-2.4) mg/dl Total Bilirubin (0.2-1.0) mg/dl AST 20 (13-39) U/L ALT (7-52) U/L Alkaline Phosphatase (34-104) U/L Troponin I (0-0.04) ng/ml Total Protein (6.0-8.3) gm/dl Albumin (3.4-5.0) gm/dl Globulin (2.5-4.0) gm/dl Albumin/Globulin Ratio (0.9-2) TSH (0.300-4.500) uIu/ml Urine Color Urine Appearance (Clear) Urine pH (4.5-7.5) Ur Specific Normanna (1.000-1.030) Urine Protein (Negative) Urine Glucose (UA) (Negative) Urine Ketones (Negative) Urine Blood (Negative) Urine Nitrite (Negative) Urine Bilirubin (Negative) Urine Urobilinogen (Negative) Ur Leukocyte Esterase (Negative) Urine WBC (Auto) (0-5) /hpf Urine RBC (Auto) (0-4) /hpf U Hyaline Cast (Auto) (0-5) /lpf U Epithel Cells (Auto) (0-5) /lpf Urine Bacteria (Auto) (Negative) SARS-CoV-2, RNA, NAAT (NEGATIVE) Administered Medications Metoprolol Tartrate (Metoprolol Tartrate 1 Mg/Ml Vial) 5 mg IV Q5M PRN PRN Reason: Tachycardia Stop: 12/10/21 04:36 Last Admin: 11/10/21 05:51 Dose: 5 mg Documented by: [id number] Discontinued Medications Famotidine (Famotidine 20mg/5ml Iv Push) 20 mg IV ONE STA Stop: 11/10/21 06:14 Last Admin: 11/10/21 06:47 Dose: Not Given Documented by: [id number] Imaging Data Radiologist's Impression: Cervical Spine CT 11/10/21 04:17 CT OF THE CERVICAL SPINE WITHOUT CONTRAST CLINICAL HISTORY: [facility] 2 weeks ago COMPARISON STUDY: No previous studies for comparison. TECHNIQUE: Helical axial images of the cervical spine were obtained without IV contrast. Sagittal and coronal reconstructions were viewed. Automated exposure control was utilized for the study. A dose lowering technique was utilized adhering to the principles of ALARA. FINDINGS: There is reversal of the normal cervical lordosis. Slight anterolisthesis of C3 on C4 and C4 on C5 is noted. There is severe multilevel facet arthrosis and severe multilevel disc space narrowing and osteophytosis. There is no prevertebral edema. There is no acute fracture. Small amount of secretions are partially visualized within the trachea. IMPRESSION: 1. No acute cervical spine fracture or subluxation. 2. 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 ACT 112: Negative or not required by law. Electronically signed by: Markel Lira M.D. 11/10/2021 6:[address] 11/10/21 04:17 CT head/brain wo con CLINICAL HISTORY: 85 years-old Male with CHI 2 weeks ago. Acute head injury with altered mental status TECHNIQUE: Multiple axial CT images of the head were obtained without contrast. A dose lowering technique was utilized adhering to the principles of ALARA. COMPARISON: CT cervical spine of same day FINDINGS: No acute intracranial hemorrhage, midline shift, intracranial mass, hydrocephal us, territorial ischemia or abnormal extra-axial collection. Motion degraded exam. The study was then repeated which was also motion degraded. Age-related involutional changes. White matter hypodensities suggest chronic microvascular ischemic disease. There is a small area of encephalomalacia within the right frontal lobe near the vertex suggestive of a chronic infarct. Cerebral vascular calcifications. There are suggested chronic lacunar infarcts of the sebastian radiata right frontal lobe and bilateral internal capsules. The calvarium is intact. Prior bilateral lens repair. There is a small contusion of the left lateral cheek. The paranasal sinuses, mastoid air cells, and middle ear cavities are clear. IMPRESSION: 1. Motion degraded exam without acute intracranial abnormality identified. 2. Small subcutaneous contusion of the left lateral cheek. 3. Chronic appearing findings as above. ACT 112: Negative or not required by law. The above report was generated using voice recognition software. It may contain grammatical, syntax or spelling errors. Electronically signed by: Musa Nielson M.D. 11/10/2021 6:58 AM Chest X-Ray 11/10/21 04:34 XR chest 1V portable CLINICAL HISTORY: weakness COMPARISON STUDY: Chest radiograph October 05, 2021. FINDINGS: Patient is rotated. Lung volumes are diminished. Elevation of the right hemidiaphragm is unchanged. Right basilar opacity favors atelectasis. There is no pneumothorax or pleural effusion. There is no consolidation to suggest pneumonia. Cardiomediastinal silhouette is stable. 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 IMPRESSION: 1. No acute findings. 2. Stable elevation of the right hemidiaphragm with right basilar atelectasis. ACT 112: Negative or not required by law. Electronically signed by: Markel Lira M.D. 11/10/2021 6:32 AM Knee X-Ray 11/10/21 05:53 XR knee LT 1 or 2V routine CLINICAL HISTORY: Trauma COMPARISON: Left knee radiographs December 26, 2020. FINDINGS: Alignment of the total left knee arthroplasty is anatomic. There is no acute fracture. No periprosthetic lucency is present. There may be mild anterior knee soft tissue swelling. Trace joint effusion. IMPRESSION: 1. Intact total left knee arthroplasty. No periprosthetic fracture or lucency. 2. Trace joint effusion. ACT 112: Negative or not required by law. Electronically signed by: Markel Lira M.D. 11/10/2021 6:30 AM Blood Pressure Blood Pressure Findings: Elevated blood pressure Blood Pressure Disposition: further management by hospitalist Discharge Plan Visit Data Chief Complaint: Altered Mental Status Stated Complaint: ALTERED, SEVERAL FALLS RECENTLY ED Provider: Zina De Jesus Discharge Problem: New onset a-fib, CHI (closed head injury), AMS (altered mental status), Frequent falls Patient Disposition: Admitted As Inpatient Forms Stand Alone Forms: Pending Sale To [facility], Virtual Emergency Department, Important Visit Information Prescriptions Prescriptions: No Action Tylenol Extra Strength 500 mg powder in packet 500 mg PO Q6H PRNRF: 0 diclofenac sodium [Voltaren Arthritis Pain] 1 % gel 4 g topical QID Qty: 100 RF: 2 atenolol 25 mg tablet 25 mg PO QAM Qty: 90 RF: 3 famotidine 20 mg tablet 20 mg PO BID Qty: 60 RF: 4 levocetirizine 5 mg tablet 5 mg PO DAILY Qty: 30 RF: 11 triamcinolone acetonide 0.1 % ointment 1 applic topical BID Qty: 80 RF: 4 PreserVision AREDS [id number] Capsule 1 cap PO AMPM RF: 0 Referrals Referrals: Laurel Toribio CRNP [Primary Care Provider] - Discharge Problem: CHI (closed head injury) Qualifiers: Encounter type: initial encounter Qualified Code(s): S09.90XA - Unspecified injury of head, initial encounter AMS (altered mental status) Qualifiers: Altered mental status type: delirium Qualified Code(s): R41.0 - Disorientation, unspecified
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
[2021-11-10] MEDS ORDERED: ONDANSETRON INJ 2 MG/ML 2 ML VIAL IV PRN (08:55)
[2021-11-10] MEDS ORDERED: ATENOLOL 50 MG TABLET ONE (10:45)
[2021-11-10] MEDS: ATENOLOL 25 MG TABLET PO SCH (10:50)
[2021-11-10] MEDS: NYSTATIN POWDER 15GM BTL EXT SCH ×2 (12:17→21:08)
--- NOTE | 2021-11-10 13:11 | XRay Report ---
XR hip GOPAL 2v w pelvis CLINICAL HISTORY: Bilateral hip pain following fall. COMPARISON STUDY: Pelvis and hip radiographs April 29, 2020. FINDINGS: Sacroiliac joints and symphysis pubis are intact. No acute fracture is identified within th e pelvis or hips. No suspicious osseous lesions are noted. Multilevel degenerative changes within the lower lumbar spine are partially imaged. Pelvic calcific favor phleboliths. There is mild joint spac e narrowing and moderate osteophytosis of the hips. Moderate stool within the rectum. IMPRESSION: No acute fracture within the pelvis or hips. ACT 112: Negative or not required by law. Electronically signed by: Markel Lira M.D. 11/10/2021 1:09 PM
--- NOTE | 2021-11-10 14:05 | Electrocardiogram Report ---
Test Reason : Blood Pressure : / mmHG Vent. Rate : 112 BPM Atrial Rate : 078 BPM P-R Int : 000 ms QRS Dur : 100 ms QT Int : 290 ms P-R-T Axes : 000 -32 065 degrees QTc Int : 395 ms Poor data quality, interpretation may be adversely affected Sinus rhythm with frequent and consecutive atrial ectopy Left axis deviation Poor R wave progression, consider anterior MD vs. lead placement vs. LVH Abnormal ECG When compared with ECG of 07-DEC-2020 14:17, Vent. rate has increased BY 47 BPM Confirmed by Nilton Higgins ([id number]) on 11/10/2021 2:04:44 PM Referred By: REFERRED SELF Confirmed By:Shad Higgins
[2021-11-10] MEDS ORDERED: OLANZapine ZYDIS 5 MG ORALLY DIS. TAB PO PRN (15:12)
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
--- NOTE | 2021-11-10 15:26 | History & Physical Bridge Note ---
Date of Service November 10, 2021 History & Physical Bridge Note I have examined the patient, reviewed the History & Physical and in the interval since the performance of the History & Physical I have noted the following changes of clinical significance: Addendum to note that he does not have new onset atrial fibrillation. His ECG shows a sinus rhythm with frequent bursts of atrial tachycardia
[2021-11-10] MEDS ORDERED: LORazepam 0.5 MG/1 ML VIAL IV PRN (17:11)
[2021-11-10] MEDS: FAMOTIDINE 20 MG TAB PO SCH (21:04)
[2021-11-10] MEDS: TRIAMCINOLONE ACET 0.1% OINT 15 GM TUBE TOP SCH (21:06)
[2021-11-10] MEDS ORDERED: HALOPERIDOL LACTATE 5 MG/ML 1 ML VIAL IM STA (23:17)
[2021-11-10] MEDS: CLOTRIMAZOLE 1% CR 15 GM TUBE EXT SCH (23:31)
--- NOTE | 2021-11-11 07:37 | Magnetic Resonance Report ---
MRI OF THE BRAIN WITHOUT CONTRAST CLINICAL HISTORY: confusion,head injury,falls,r/o CVA COMPARISON STUDY: Head CT November 10, 2021. TECHNIQUE: Utilizing a 1.5 Daniella magnet and dedicated coil, multiplanar, multiecho imaging of the bra in was performed without IV contrast. FINDINGS: Exam is moderately compromised by motion artifact. There are no foci of restricted diffusio n to suggest acute infarct. No acute intracranial hemorrhage, midline shift or mass effect is present . Ventricular system is unremarkable. Old right frontal lobe infarct is present. Basal cisterns are p atent. There are no extra-axial collections. White matter hypodensity suggests small vessel disease. Atrophy is noted. Note is made of an old lacunar infarct within the right cerebellar hemisphere. Old lacunar infarct within the right centrum semiovale ovale are noted. Calvarial signal is grossly sanya l. There is no evidence for sinusitis. IMPRESSION: 1. No acute intracranial findings. Exam moderately compromised by motion artifact. 2. Moderate atrophy and small vessel disease. 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 ACT 112: Negative or not required by law. Electronically signed by: Markel Lira M.D. 11/11/2021 7:35 AM
[2021-11-11 07:43] LABS: Basophils # (auto) 0.02 K/uL (0-0.2); Basophils % (auto) 0.3 %; Eosinophils % (auto) 2.6 %; Hematocrit (blood only) 44.4 % (42-52); Hemoglobin 14.7 g/dL (14.0-18.0); Immature Granulocytes # (auto) 0.01 K/uL (0.00-0.02); Immature Granulocytes % (auto) 0.1 %; Lymphocytes # (auto) 0.91 K/uL (1.2-3.4); Lymphocytes % (auto) 11.8 %; Mean Corpuscular Hgb Conc 33.1 g/dL (32-36); Mean Corpuscular Volume 96.7 fL (80-100); Mean Platelet Volume 11.2 fL (7.4-10.4); Monocytes # (auto) 0.76 K/uL (0.11-0.59); Monocytes % (auto) 9.9 %; Neutrophils % (auto) 75.3 %; Platelet Count 161 K/uL (130-400); RDW Coefficient of Variation 13.1 % (11.5-14.5); RDW Standard Deviation 46.3 fL (36.4-46.3); Red Blood Count 4.59 M/uL (4.7-6.1)
[2021-11-11] MEDS: FAMOTIDINE 20 MG TAB PO SCH ×2 (07:57→20:47)
[2021-11-11] MEDS: CETIRIZINE HCL 10 MG TABLET PO SCH (07:57)
[2021-11-11] MEDS: CLOTRIMAZOLE 1% CR 15 GM TUBE EXT SCH ×2 (07:58→20:49)
[2021-11-11] MEDS: FLUTICASONE/VILANTEROL 100/25MCG 14 PUFFS/INHALER INH SCH (07:58)
[2021-11-11] MEDS: ATENOLOL 25 MG TABLET PO SCH (07:58)
[2021-11-11] MEDS: NYSTATIN POWDER 15GM BTL EXT SCH ×2 (07:59→20:50)
[2021-11-11] MEDS: TRIAMCINOLONE ACET 0.1% OINT 15 GM TUBE TOP SCH ×2 (07:59→20:50)
[2021-11-11 08:05] LABS: BUN Creatinine Ratio 19.5 (10-20); Calcium 8.6 mg/dl (8.5-10.1); Creatinine Clr Calc Pharmacy 46.5 ml/min; Est GFR (African American) 59.2 ml/min; Est GFR (Non-African American) 51.1 ml/min; Potassium 3.9 mmol/L (3.5-5.1)
[2021-11-11] MEDS: ACETAMINOPHEN 325 MG TAB PO PRN ×2 (11:46→20:39)
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
[2021-11-11] MEDS: OLANZAPINE 2.5 MG TAB PO SCH (20:39)
[2021-11-11] MEDS: MELATONIN 3 MG TAB PO PRN (20:39)
[2021-11-12] MEDS: FAMOTIDINE 20 MG TAB PO SCH ×2 (08:43→20:37)
[2021-11-12] MEDS: CETIRIZINE HCL 10 MG TABLET PO SCH (08:44)
[2021-11-12] MEDS: ATENOLOL 25 MG TABLET PO SCH (08:44)
[2021-11-12] MEDS: FLUTICASONE/VILANTEROL 100/25MCG 14 PUFFS/INHALER INH SCH (08:44)
[2021-11-12] MEDS: CLOTRIMAZOLE 1% CR 15 GM TUBE EXT SCH ×2 (08:45→20:37)
[2021-11-12] MEDS: NYSTATIN POWDER 15GM BTL EXT SCH ×2 (08:45→20:37)
[2021-11-12] MEDS: TRIAMCINOLONE ACET 0.1% OINT 15 GM TUBE TOP SCH ×2 (08:46→20:37)
[2021-11-12] MEDS: ACETAMINOPHEN 325 MG TAB PO PRN ×3 (08:51→20:36)
[2021-11-12] MEDS ORDERED: HALOPERIDOL LACTATE 5 MG/ML 1 ML VIAL IM STA (11:37)
--- NOTE | 2021-11-12 12:47 | Hospitalist Progress Note ---
Date of Service November 12, 2021 Assessment & Plan (1) Falls: Plan: Patient with history of falls inside and outside home Fall with facial trauma 2 weeks ago, some confusion and altered mental status since CTH: Negative. 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 Suspect postconcussive syndrome which may also exacerbate prior strokelike deficits No orthostatic hypotension today Waxing and waning delirium, baseline orientation somewhat improved 11/12 PT/OT saw. Recommend rehab versus 24-hour care. Discussed with case management, patient will need to be off one-to-one for 24 hours for placement. Would like to pursue placement at [facility] per patient's family, will require 3 midnight stay. Patient is doing well with redirection, with improved sleep overnight with melatonin/olanzapine. Was more well oriented this morning, but did have some confusion early afternoon waxing and waning consistent with hospital delirium. - Discussed with family. Has had gradual decline of 1 year since knee surgery, increasing cognitive decline for 4 months, and sudden worsening 1 month ago. Multiple falls/head strikes in the prior month with at least 3 head injuries preceding this hospitalization. Fall precautions, bed alarm Labs QoD (2) Atrial fibrillation: Plan: Patient with sinus rhythm, intermittent bursts of atrial tachycardia Continue atenolol (3) Hypertension: Plan: Chronic -Continue Atenolol (4) Altered mental status: Plan: As above Plan: DVT prophylaxis: SCDs, pharmacal prophylaxis deferred in the setting of facial injury with frontal hematoma CODE STATUS: Conditional code Disposition: Stable, pending placement Admission and Anticipated Discharge Date Admission Date: November 11, 2021 Subjective Patient seen at the bedside today. He is actually somewhat more well oriented, he is oriented to the year and is close on the date (believes it is the beginning of November, actual date 11/12). Is not oriented to place is oriented to name. Follows commands, no acute distress. Does follow limited two-step commands today. Patient did have waxing and waning confusion consistent with delirium, became disoriented and with attempts to remove medical equipment in the afternoon. Review of Systems Review of Systems: Somewhat limited by cognitive status, but grossly 10 point review of systems negative except as noted in HPI and for some bilateral knee pain not worsened on palpation. Physical Exam Physical Exam: General: Oriented to name, year and nearly oriented to month/day. Not oriented to place. No acute distress. HEENT: L eye with surrounding hematoma. Visual acuity grossly intact, hearing grossly intact. EoM intact without nystagmus. No ocular entrapment on EoM. Pulm: CTAB A&P. -wheezes, -rales, -rhonchi. Symmetrical chest rise. No increase in work of breathing. No respiratory distress. Cardiac: RRR, -mrg. Radial pulses intact and symmetrical. Abdominal: Nontender, nondistended, soft. BS present. Results & Data Results & Data ([facility]) Vital Signs (Past 12 Hours) Vital Signs Temp Pulse Pulse Resp BP Pulse Ox 11/12/21 07:21 36.5 C 57 L 18 166/86 H 95 11/12/21 07:04 54 L 11/12/21 05:16 36.4 C L 59 L 20 164/95 H 97 11/12/21 03:20 36.3 C L 53 L 16 150/82 H 94 PG Care Time/CCT Total # of Minutes Spent Total Time Spent with Patient: Total time spent is greater than 50% in coordination of care (as documented) at patient's floor/unit and/or counseling patient: Coding Level of Care Code 70805 Subseq Hosp Care Lvl 2 Diagnoses Falls W19.XXXA Atrial fibrillation I48.91 Hypertension I10 Altered mental status R41.0 Altered mental status type: delirium (1) Altered mental status Altered mental status type: delirium Qualified Code(s): R41.0 - Disorientation, unspecified
[2021-11-12] MEDS ORDERED: OLANZapine 10 MG/2.1 ML SDV IM PRN (15:04)
[2021-11-12] MEDS: MELATONIN 3 MG TAB PO PRN (20:36)
[2021-11-12] MEDS: OLANZAPINE 2.5 MG TAB PO SCH (20:37)
[2021-11-13 07:47] LABS: Basophils # (auto) 0.01 K/uL (0-0.2); Basophils % (auto) 0.2 %; Eosinophils % (auto) 3.2 %; Hematocrit (blood only) 44.2 % (42-52); Hemoglobin 14.7 g/dL (14.0-18.0); Immature Granulocytes # (auto) 0.01 K/uL (0.00-0.02); Immature Granulocytes % (auto) 0.2 %; Lymphocytes # (auto) 0.86 K/uL (1.2-3.4); Lymphocytes % (auto) 13.7 %; Mean Corpuscular Hemoglobin 32.3 pg (25-34); Mean Corpuscular Hgb Conc 33.3 g/dL (32-36); Mean Corpuscular Volume 97.1 fL (80-100); Mean Platelet Volume 11.4 fL (7.4-10.4); Monocytes # (auto) 0.67 K/uL (0.11-0.59); Monocytes % (auto) 10.7 %; Neutrophils # (auto) 4.51 K/uL (1.4-6.5); Platelet Count 161 K/uL (130-400); RDW Coefficient of Variation 13.1 % (11.5-14.5); RDW Standard Deviation 46.2 fL (36.4-46.3); Red Blood Count 4.55 M/uL (4.7-6.1); White Blood Count 6.26 K/uL (4.8-10.8)
[2021-11-13 08:11] LABS: BUN Creatinine Ratio 21.5 (10-20); Calcium 8.7 mg/dl (8.5-10.1); Creatinine Clr Calc Pharmacy 41.3 ml/min; Est GFR (African American) 51.3 ml/min; Est GFR (Non-African American) 44.3 ml/min; Potassium 3.8 mmol/L (3.5-5.1)
[2021-11-13] MEDS: FAMOTIDINE 20 MG TAB PO SCH (12:23)
[2021-11-13] MEDS: ATENOLOL 25 MG TABLET PO SCH (12:23)
[2021-11-13] MEDS: CETIRIZINE HCL 10 MG TABLET PO SCH (12:23)
[2021-11-13] MEDS: CLOTRIMAZOLE 1% CR 15 GM TUBE EXT SCH (12:24)
[2021-11-13] MEDS: NYSTATIN POWDER 15GM BTL EXT SCH (12:24)
[2021-11-13] MEDS: FLUTICASONE/VILANTEROL 100/25MCG 14 PUFFS/INHALER INH SCH (12:24)
[2021-11-13] MEDS: TRIAMCINOLONE ACET 0.1% OINT 15 GM TUBE TOP SCH (12:25)
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
== END 2021-11-13 13:31 | DRG 103 ==
LOC: EDINP 03:46 → ED 03:46 → SUATTDRO 06:39 → 2N 08:56

== ENCOUNTER 2024-03-15 20:25 | Inpatient (IN) ==
--- OUTSIDE RECORDS SUMMARY | 2024-03-15 20:32 | External Medical Summary | Summary of Care ---
Author Name Unknown Organization [facility] Address [address] [place] [address] Phone [phone] Care Team Providers Care Psychology Department Chair Name Role Phone Pro, Eulalio Ledezma MD Primary Care Provider [phone]- [phone] Reason for Visit * Reason Comments Follow Up 8-10 WEEK F/U; PT SINCLAIR S NO COMPLAINTS SINCE JOHN * Precert (Within 10 days (routine)) - Authorized Specialty Diagnoses / Procedures Referred By Annabella loza Referred To Contact Ophthalmology Diagnoses Exudative age-related macular degeneration, right eye, with active choroidal neovascularization (HCC) Procedures [place] AFLIBERCEPT INJECTION [place] INTRAVITREAL NJX PHARMACOLOGIC AGT SPX Nilton Anna DO [address] [place] [address] Ophthalmology [facility] [address] [facility] [place] [address] Referral ID Status Reason Start Date Expiration Date V isits Requested Visits Authorized [id number] Authorized Precert 02/19/2022 10/13/2099 99 99 Encounter Details Date Type Department Care Team (Late st Contact Info) Description 01/28/2024 8:30 AM EDT Office Visit Ophthalmology, [facility] [address] [facility] [place] [address] Nilton Anna, [address] [place] [address] Exudative age-related macular degeneration of right eye with active choroidal neovascularization (HCC)*; Intermediate stage nonexudative age-related macular degeneration of left eye Allergies Active Allergy Reactions Criticality Noted Date Comments Diclofenac 07/05/2022 documented as of this encounter (statuses as of 01/28/2024) Medications Medication Sig Dispensed Refills Start Date End Date Status Acetaminophen 325 MG Oral Tablet (Tylenol) Take 2 Tablets by mouth every 4 hours as needed for Fever >38C(100.5F) or Pain, Breakthrough. 100 Tablet 0 11/14/2021 Active Atenolol 25 MG Oral Tablet (Tenormin)Indications :Hypertension goal BP (blood pressure) < 140/90 Take by mouth 1 Tablet in the morning. 30 Tablet 0 11/30/2021 Active Famotidine 20 MG Oral Tablet (Pepcid)Indications:G astroesophageal reflux disease without esophagitis Take by mouth 1 Tablet in the morning AND 1 Tablet before bedtime. 60 Tablet 0 11/30/2021 Active Melatonin 5 MG Oral Tablet DisintegratingIndicat ions:Altered mental status, unspecified altered mental status type Take by mouth 5 mg every night at bedtime . 30 Tablet 0 11/30/2021 Active PreserVision AREDS 2 Oral Capsule Take by mouth 1 Capsule in the morning AND 1 Capsule before bedtime. 60 Capsule 0 11/30/2021 Active DULoxetine HCl 60 MG Oral Capsule Delayed Release Particles (Cymbalta) 0 06/29/2022 Active Memantine HCl 10 MG Oral Tablet (Namenda) Take 1 Tablet by mouth 2 times a day with morning and evening meals. 0 Active Polyethylene Glycol 3350 17 GM Oral Packet Take 1 Packet by mouth in the morning. As need for constipation. 0 Active Propylene Glycol 0.6 % Ophthalmic Solution Instill 2 Drops into both eyes in the morning and 2 Drops before bedtime. 0 03/08/2022 Active Donepezil HCl 5 MG Oral Tablet (Aricept) Take 1 Tablet by mouth in the morning. 0 03/01/2023 Active Docusate Sodium 100 MG Oral Capsule Take 1 Capsule by mouth daily as needed for Constipation. 0 Active Multi-Vitamin Daily Oral Tablet Take 1 Tablet by mouth in the morning. 0 Active Hospital, Clinic, or Other Facility Administered Medication Ordered Dose Route Frequency Start Date End Date Status Aflibercept (Eylea) intraviteal prefilled syringe 2 mgIndications:Exudative age-related macular degeneration of right eye with active choroidal neovascularization (HCC) 2 mg IZ PRN 05/27/2023 05/26/2024 Active ROPivacaine (Naropin) inj 1.5 mgIndications:Exudative age-related macular degeneration of right eye with active choroidal neovascularization (HCC) 1.5 mg IJ PRN 05/27/2023 05/26/2024 Active documented as of this encounter (statuses as of 01/28/2024) Active Problems Problem Noted Date Diagnosed Date Hypertension goal BP (blood pressure) < 140/90 0 11/14/2021 Gastroesophageal reflux disease without esophagi tis 11/14/2021 Frequent falls 11/14/2021 S/P TKR (total knee replacement), left History of lacunar cerebrovascular accident 10/2021 Hallucinations 11/14/2021 Psychosis 11/14/2021 Vascular dementia with behavior disturbance 10/2021 Stage 3a chronic kidney disease 11/14/2021 documented as of this encounter (statuses as of 01/28/2024) Immunizations Name Administration Dates Next Due Seasonal Influenza Virus Vac cine, Unspecified Formulation 07/28/2018 Seasonal Influenza, Quadrivalent Hd (Fluzone Hd) 06/21/2021 Seasonal Influenza, Split, IIV3, With Preserve, Inj 07/28/2018 Seasonal Influenza, Trivalent, Adjuvanted, 65+ y rs 07/25/2020,07/22/2019 documented as of this encounter Social History Tobacco Use Types Packs/Day Years Used Date Smoking Tobacco: Never Smokeless Tobacco: Never Alcohol Use Standard Drinks/Week Comments Yes 0 (1 standard drink = 0.6 oz pur e alcohol) Sex and Gender Information Value Date Recorded Sex Assigned at Not on file Gender Identity Not on file Sexual Orientation Not on file Job Start Date Occupation Industry Not on file Not on file Not on file documented as of this encounter Progress Notes * Nilton Anna DO - 01/28/2024 8:30 AM EDT [facility] [address] [place] Nursing notes reviewed. Eye vitals reviewed. Mood and Affect: normal HPI: Anibal Larson is an 88 year old male who presents for continuation of care for exudative AMD. No other eye complaints. Denies significant pain. Base Eye Exam Visual Acuity (Snellen - Linear) Right Left Dist cc 20/150 -1 20/20 -2 Dist ph cc NI Tonometry (Tonopen, 8:54 AM) Right Left Pressure 14 15 Pupils Dark Shape React APD Right 4 Round Minimal None Left 4 Round Minimal None Visual Klein (Counting fingers) Right Left Full Full KEPT LOOKING AWAY FROM NOSE WHEN DOING OD Extraocular Movement Right Left Full, Ortho Full, Ortho Neuro/Psych Oriented x3: Yes Dilation Both eyes: 0.5% Proparacaine @ 8:52 AM Dilation #2 Both eyes: 1.0% Mydriacyl, 2.5% Phenylephrine @ 8:54 AM Dilation Comments Patient cautioned that effects of dilation may last 2-7 hours dependant upon individual reaction. It was discussed that driving while dilated is not recommended. EXTERNAL: The ocular adnexae are unremarkable. SLE: Lids/Lashes: wnl OU Conjunctiva/Sclera: quiet OU Cornea: clear OU Anterior Chamber: deep and quiet OU Iris: normal OU; no NVI OU Lens: PCIOL OU Dilated fundus exam OD: vitreous: PVD optic nerve: 0.7, no edema/pallor/NVD macula: drusen, ERM vessels: wnl periphery: wnl, no RT/RD Dilated fundus exam OS: vitreous: PVD optic nerve: 0.75, no edema/pallor/NVD macula: drusen; small, flat choroidal nevus temporally <0.5 disc area in size, no orange pig/srfluid vessels: wnl periphery: wnl, no RT/RD OCT Interpretation: OD: scattered drusen, recurrent CME, ERM with surface wrinkling, +PVD - STABLE, prior STABLE, priorno sig change, prior STABLE, prior STABLE, prior STABLE, prior improved 163um prior worse 100um, prior worse 71um ,prior STABLE, prior STABLE, prior STABLE, prior improved 86um, prior worse 94um, prior STABLE, prior improved 92um, prior worse 106um, prior stable OS: scattered drusen, no CME/SRFluid, +PVD - stable A/P: 1. Exudative Age-Related Macular Degeneration OD - h/o Eylea injections q6-[address] Ceasar Pitt ([place], [place]) since approx April 2018; last injection there was 08-12-18 before presentation to [place] -had steroid injection 07/02 in [place] for pseudophakic CME; questioned dx of wet AMD - s/p Eylea (12/03/23, 10/02/23, 07/31/23, 05/27/23, 03/26/23, 01/17/23, 09/11/22, 07/05/22, 05/07/22, 03/05/22, 10/09/21, 06/21/21, 04-27-21, 03/09/21, 01/25/21, 9-0-60--significant improvement, (had no injections in [place]--[place] and [place] worse after return to [place])03/08/20, 4--, 12/03/19 --significant improvement w/ r esolution of CME......02-05-19, 12-24-18, 10-29-18) - 7 weeks since last injection , stable and dry at 6-8 weeks in past; worse at 21 weeks(pt missed appoint) 2. Nonexudative Age-Related Macular Degeneration OS -An examination for this condition was completed which is unrelated to the procedure that was performed today. -recommend AREDS2 MVI as directed and Amsler grid qday -monitor 3. Epiretinal Membrane OD - no surgical intervention recommended at this time 4. Posterior Vitreous Detachment OU -no RT/RD -advised to return to clinic if he should experience worsening or new floaters, flashes of light, ashadow in the periphery, or decrease in vision. 5. Choroidal nevus OS -low risk -no change -monitor 6. Pseudophakia OU -stable 7. 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 Trammell TIMEOUT PROCEDURE: correct patient identity-YES correct procedure and consent-YES verified side and site-YES correct patient position-YES all necessary equipment/prior studies present-YES reviewed special requirements of this patient-YES PROCEDURE: Intravitreal injection of Eylea (aflibercept) 2mg OD INFORMED CONSENT: Risks, benefits and alternatives have been discussed with the patient. Risks include, but are not limited to: retinal tears, detachments, hemorrhage, glaucoma, infection, cataracts, need for more procedures and the potential risk of arterial thromboembolic events following use of intravitreal VEGF inhibitors defined as nonfatal stroke, nonfatal myocardial infarction or vascular . Patient is aware of these risks and consents to the procedure. DESCRIPTION OF PROCEDURE: The procedure site was confirmed. Topical proparacaine was applied to the surface of the eye after which subconjunctival anesthetic was administered. The area was prepped in the standard aseptic manner with 5% Betadine solution. An eyelid speculum was placed and 2mg (0.05 ml) of Eylea was injected 3.75 mm posterior to the limbus into the midvitreous cavity with a 30 gauge short needle. The eye speculum was removed, Betadine was flushed from the eye and optic nerve perfusion was insured. The patient tolerated the procedure without difficulty and was given followup instructions and instructed to use ophthalmic ointment 3x/day as needed. Nilton Anna DO, performed the procedure in its entirety. Plan: F/u 8-10 weeks dilate and OCT OU Nilton Anna DO CC: Dr. Trammell documented in this encounter Nursing Notes * Talisha Fuentes RN - 01/28/2024 9:18 AM EDT Anibal Larson to receive 24 Eylea 2mg Injection of the Right eye. Correct eye confirmed with patient and marked by Nilton Anna DO Eylea 2mg lot # [id number] Exp. Date: 12/2024 * Liane Askew MED ASSIST - 01/28/2024 8:46 AM EDT Anibal Larson is a 88 year old year old male who presents for AMD OU. Last Office Visit: 12/03/2023 (in office), Visit date not found (telemedicine) Patient currently states no change in vision. Are you diabetic? No Do you drive? no OCT image(s) of both eyes acquired and filed/scanned into chart. 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 Ordered: 01/28/2024 Health Maintenance Due Date Last Done Comments Depression Screening 1947 Albumin/Creatinine Ratio 1953 CKD PHOS USE SMARTSET 75198 1954 DTaP,Tdap,and Td Vaccines (1 - Tdap) 1955 Zoster Vaccines (1 of 2) 1986 Pneumococcal Vaccine: 65+ Years (1 of 1 - PCV) 2001 COVID-19 Vaccine (3 - season) 2023 12/17/2020, 11/19/2020 Influenza Vaccine (FLU shot) (Season Ended) 2024 06/21/2021, 07/25/2020, 07/22/2019, Additional history exists CKD HGB USE SMARTSET 68182 12/17/202412/17, 06/25/2023, 04/09/2023, Additional history exists GARDASIL-HPV IMMUNIZATION SERIES Aged Out No longer eligible based on patient's age to complete this topic Hepatitis B Aged Out No longer eligi ble based on patient's age to complete this topic MENINGOCOCCAL (MENACTRA/MENVEO) Aged Out No longer eligible based on patient's age to complete this topic documented as of this encounter Medical Devices Not on filedocumented as of this encounter Visit Diagnoses Diagnosis Exudative age-related macular degeneration of right eye with active choroidal neovascularization (HCC)- Primary Intermediate stage nonexudative age-related macular degeneration of left eye documented in this encounter Administered Medications Active Administered Medications - up to 3 most recent administrations Medication Order MAR Action Action Date Dose Rate Site Aflibercept (Eylea) intraviteal prefilled syringe 2 mg 2 mg, Intravitreal, PRN Other, Starting on Sat05/27/23 at 1522, Until Sat05/26/24 at 1521, For 365 days Given 01/28/2024 9:19 AM EDT 2 mg Eye Right Given 12/03/2023 10:49 AM EST 2 mg E ye Right Given 10/02/2023 11:31 AM EST 2 mg E ye Right ROPivacaine (Naropin) inj 1.5 mg 1.5 mg, Injection, PRN Other, Starting on Sat05/27/23 at 1522, Until Sat05/26/24 at 1521, For 365 days Given 01/28/2024 9:19 AM EDT 1.5 mg Eye R ight Given 12/03/2023 10:49 AM EST 1.5 mg E ye Right Given 10/02/2023 11:31 AM EST 1.5 mg E ye Right documented in this encounter Care Teams Psychology Department Chair Relationship Specialty Start Date End Date Pro, Eulalio Ledezma MD [address] [place] [address] PCP - General Internal Medicine 11/30/21 documented as of this encounter
--- OUTSIDE RECORDS SUMMARY | 2024-03-15 20:32 | External Medical Summary ---
Author Name Unknown Address Unknown Organization [id number]:[facility] - [address] [place] [id number] Laboratory Report Ordering Provider Test Date Status JOSE ROBERTO QUICK 01/14/2024 07:24:02 Final Observation Date Value Abnormality Reference (Units) Status Bacteria identified in Specimen by Culture 01/14/2024 07:24:02 No significant growth Final Test: Culture, Urine, Quanti tative
Specimen Source: Urine, Unspecified
Specimen Type: Urine
Specimen Date: 01/14/2024 7:24 AM
Result Date: 01/15/2024 8:18 AM
Result Status: Final result
Resulting Lab: [facility]
[address]
[facility] [address]

CULTURE

No significant growth

null Performing Location [facility] - [address] [facility] [address]
--- OUTSIDE RECORDS SUMMARY | 2024-03-15 20:32 | External Medical Summary | Summary of Care ---
Author Name Unknown Organization [facility] Address [address] [place] [address] Phone [phone] Care Team Providers Care Police Communications Operator Name Role Phone Pro, Eulalio Ledezma MD Primary Care Provider +1- [phone] Reason for Visit * Reason Comments Follow Up 8-10 WEEK F/U; PT SINCLAIR S NO COMPLAINTS SINCE JOHN * Precert (Within 10 days (routine)) - Authorized Specialty Diagnoses / Procedures Referred By Annabella loza Referred To Contact Ophthalmology Diagnoses Exudative age-related macular degeneration, right eye, with active choroidal neovascularization (HCC) Procedures AR AFLIBERCEPT INJECTION AR INTRAVITREAL NJX PHARMACOLOGIC AGT SPX Nilton Anna DO [address] [place] [address] Ophthalmology [facility] [address] [facility] [place] [address] Referral ID Status Reason Start Date Expiration Date V isits Requested Visits Authorized [id number] Authorized Precert 02/19/2022 10/13/2099 99 99 Encounter Details Date Type Department Care Team (Late st Contact Info) Description 01/28/2024 8:30 AM EDT Office Visit Ophthalmology, [facility] [address] [facility] [place] [address] Nilton Anna, [address] [place] [address] Exudative age-related macular degeneration of right eye [...] - 01/28/2024 8:30 AM EDT [facility] [address] [place] Nursing notes [...] injections q6-[address] Ceasar Pitt ([place], [place]) since approx April 2018; last injection there was 08-12-18 before presentation [place] -[place] steroid injection 07/02 in [place] for pseudophakic CME; questioned dx of wet AMD - s/p Eylea (12/03/23, 10/02/23, 07/31/23, 05/27/23, 03/26/23, 01/17/23, 09/11/22, 07/05/22, 05/07/22, 03/05/22, 10/09/21, 06/21/21, 04-27-21, 03/09/21, 01/25/21, 0-2-28--significant improvement, (had no injections in [place]--[place] and [place] worse after return to [place])03/08/20, 4--, 12/03/19 --significant improvement w/ r esolution [...] Nilton Anna DO Eylea 2mg lot # [id number] Exp. Date: 12/2024 * Liane Askew MED [...] Albumin/Creatinine Ratio 1953 CKD PHOS USE SMARTSET 54605 1954 DTaP,Tdap,and Td Vaccines (1 - Tdap) 1955 Zoster Vaccines (1 of 2) 1986 Pneumococcal Vaccine: 65+ Years (1 of 1 - PCV) 2001 COVID-19 Vaccine (3 - season) 2023 12/17/2020, 11/19/2020 Influenza Vaccine (FLU shot) (Season Ended) 2024 06/21/2021, 07/25/2020, 07/22/2019, Additional history exists CKD HGB USE SMARTSET 94164 12/17/202412/17, 06/25/2023, 04/09/2023, Additional history exists GARDASIL-HPV [...] Right documented in this encounter Care Teams Police Communications Operator Relationship Specialty Start Date End Date Pro, Eulalio Ledezma MD [address] [place] [address] PCP - General Internal Medicine 11/30/21 documented as of this encounter
--- OUTSIDE RECORDS SUMMARY | 2024-03-15 20:32 | External Medical Summary | Summary of Care ---
Author Name Unknown Organization [facility] Address [address] [place] [address] Phone [phone] Care Team Providers Care Collar Runner Name Role Phone ProEulalio MD Primary Care Provider [phone]- [phone] Encounter Details Date Type Department Care Team (Late st Contact Info) Description 12/18/2023 Orders Only Lab Mobile Phlebotomy [facility] [address] [place] [address] Emma Webster CRNP [address] [place] [address] HTN, goal below 140/90*; Uremic pericarditis Allergies Active Allergy Reactions Criticality Noted Date Comments Diclofenac 07/05/2022 documented as of this encounter (statuses as of 12/18/2023) Medications Medication Sig Dispensed Refills Start Date [...] as of this encounter (statuses as of 12/18/2023) Active Problems Problem Noted Date Diagnosed Date Hypertension goal BP (blood pressure) < 140/90 0 11/14/2021 Gastroesophageal reflux disease without esophagi tis 11/14/2021 Frequent falls 11/14/2021 S/P TKR (total knee replacement), left History of lacunar cerebrovascular accident 10/2021 Hallucinations 11/14/2021 Psychosis 11/14/2021 Vascular dementia with behavior disturbance 10/2021 Stage 3a chronic kidney disease 11/14/2021 documented as of this encounter (statuses as of 12/18/2023) Immunizations Name Administration Dates Next Due Seasonal [...] on file documented as of this encounter Plan of Treatment Upcoming Encounters Date Type Department Care Team (Late st Contact Info) Description 01/28/2024 8:30 AM EDT Office Visit Ophthalmology, [facility] [address] [place] [place] [address] Nilton Anna, [address] [place] [address] Scheduled Orders Name Type Priority Associated Diagnoses Orde r Schedule BASIC METABOLIC PANEL Lab Routine HTN, goal below 140/90 Uremic pericarditis Expected: 12/18/2023, Expires: 12/17/2024 25-HYDROXY VITAMIN D Lab Routine HTN, goal below 140/90 Uremic pericarditis Expected: 12/18/2023, Expires: 12/17/2024 CBC Lab Routine HTN, goal below 140/90 Uremic pericarditis Expected: 12/18/2023, Expires: 12/17/2024 Health Maintenance Due Date Last Done Comments Depression Screening 1947 Albumin/Creatinine Ratio 1954 CKD PHOS USE SMARTSET 91028 1954 DTaP,Tdap,and Td Vaccines (1 - Tdap) 1955 Zoster Vaccines (1 of 2) 1986 Pneumococcal Vaccine: 65+ Years (1 of 1 - PCV) 2001 COVID-19 Vaccine (3 - 2022-24 season) 2023 12/17/2020, 11/19/2020 Influenza Vaccine (FLU shot) (#1) 2023 06/21/2021, 07/25/2020, 07/22/2019, Additional history exists CKD HGB USE SMARTSET 11457 06/25/202406/25, 04/09/2023, 10/29/2022, Additional history exists GARDASIL-HPV IMMUNIZATION SERIES Aged [...] as of this encounter Visit Diagnoses Diagnosis HTN, goal below 140/90- Primary Unspecified essential hypertension Uremic pericarditis Chronic kidney disease, unspecified documented in this encounter Care Teams Collar Runner Relationship Specialty Start Date End Date Pro, Eulalio Ledezma MD [address] [place] [address] PCP - General Internal Medicine 11/30/21 documented as of this encounter
--- OUTSIDE RECORDS SUMMARY | 2024-03-15 20:32 | External Medical Summary ---
Author Name Unknown Address Unknown Organization [id number]:[facility] [address] - [address] [place] [address] Laboratory Report Ordering Provider Test Date Status JOSE ROBERTO QUICK 12/18/2023 05:45:00 Final Observation Date Value Abnormality Reference (Units ) Status WBC, Total 12/18/2023 05:45:00 6.66 4.00-10.8 0 (K/uL) Final RBC 12/18/2023 05:45:00 3.87 4.50-5.25 (M/uL) Final Hemoglobin 12/18/2023 05:45:00 12.0 Below low normal 14 .0-16.8 (g/dL) Final HCT 12/18/2023 05:45:00 36.5 Below low normal 40. 0-48.4 (%) Final MCV 12/18/2023 05:45:00 94.3 82.0-99.5 (fL) Final MCH 12/18/2023 05:45:00 31.0 27.0-34.0 (pg) Final MCHC 12/18/2023 05:45:00 32.9 32.0-36.0 (g/dL) Final RDW 12/18/2023 05:45:00 13.5 11.5-15.5 (%) Final Platelets 12/18/2023 05:45:00 158 140-400 (K /uL) Final MPV 12/18/2023 05:45:00 10.8 6.6-11.1 ( fL) Final Performing Location [facility] [address] [place] [address]
--- OUTSIDE RECORDS SUMMARY | 2024-03-15 20:32 | External Medical Summary | Summary of Care ---
Author Name Unknown Organization [facility] Address [address] [place] [address] Phone [phone] Care Team Providers Care Vamp Seamer Name Role Phone ProEulalio MD Primary Care Provider [phone]- [phone] Reason for Visit * Reason Comments Follow Up 8-10 WEEK F/U DIL/OC T OU * Precert (Within 10 days (routine)) - Authorized Specialty Diagnoses / Procedures Referred By Annabella loza Referred To Contact Ophthalmology Diagnoses Exudative age-related macular degeneration, right eye, with active choroidal neovascularization (HCC) Procedures RI AFLIBERCEPT INJECTION RI INTRAVITREAL NJX PHARMACOLOGIC AGT SPX Nilton Anna DO [address] [place] [address] Ophthalmology [facility] [address] [facility] [place] [address] Referral ID Status Reason Start Date Expiration Date V isits Requested Visits Authorized [id number] Authorized Precert 02/19/2022 10/13/2099 99 99 Encounter Details Date Type Department Care Team (Late st Contact Info) Description 12/03/2023 10:15 AM EST Office Visit Ophthalmology, [facility] [address] [facility] [place] [address] Nilton Anna DO [address] [place] [address] Exudative age-related macular degeneration of right eye with active choroidal neovascularization (HCC)*; Intermediate stage nonexudative age-related macular degeneration of left eye; Nevus of choroid of left eye Allergies Active Allergy Reactions Criticality Noted Date Comments Diclofenac 07/05/2022 documented as of this encounter (statuses as of 12/03/2023) Medications Medication Sig Dispensed Refills Start Date End Date Status Acetaminophen 325 MG Oral Tablet (Tylenol) Take 2 Tablets by mouth every 4 hours as needed for Fever >38C(100.5F) or Pain, Breakthrough. 100 Tablet 0 11/14/2021 Active Atenolol 25 MG Oral Tablet (Tenormin)Indicat ions:Hypertension goal BP (blood pressure) < 140/90 Take by mouth 1 Tablet in the morning. 30 Tablet 0 11/30/2021 Active Famotidine 20 MG Oral Tablet (Pepcid)Indicatio ns:Gastroesophage al reflux disease without esophagitis Take by mouth 1 Tablet in the morning AND 1 Tablet before bedtime. 60 Tablet 0 11/30/2021 Active Melatonin 5 MG Oral Tablet DisintegratingInd ications:Altered mental status, unspecified altered mental status type [...] by mouth in the morning. 0 Active DULoxetine HCl 30 MG Oral Capsule Delayed Release Particles (Cymbalta) Take 1 Capsule by mouth. In the afternoon 0 05/18/2023 12/03/2023 Discontinue d(Medicatio n List Clean Up) Hospital, Clinic, or Other Facility Administered Medication [...] as of this encounter (statuses as of 12/03/2023) Active Problems Problem Noted Date Diagnosed Date Hypertension goal BP (blood pressure) < 140/90 0 11/14/2021 Gastroesophageal reflux disease without esophagi tis 11/14/2021 Frequent falls 11/14/2021 S/P TKR (total knee replacement), left History of lacunar cerebrovascular accident 10/2021 Hallucinations 11/14/2021 Psychosis 11/14/2021 Vascular dementia with behavior disturbance 10/2021 Stage 3a chronic kidney disease 11/14/2021 documented as of this encounter (statuses as of 12/03/2023) Immunizations Name Administration Dates Next Due Seasonal [...] Progress Notes * Nilton Anna DO - 12/03/2023 10:15 AM EST [facility] [place] Nursing notes reviewed. Eye vitals reviewed. Mood and Affect: normal HPI: Anibal Larson is an 88 year old male who presents for continuation of care for exudative AMD. No other eye complaints. Denies significant pain. Base Eye Exam Visual Acuity (Snellen - Linear) Right Left Dist sc 20/100 +1 20/20 -2 Dist ph sc NI Tonometry (Tonopen, 10:22 AM) Right Left Pressure 13 11 Neuro/Psych Mood/Affect: Normal AAO X 1 Dilation Both eyes: 0.5% Proparacaine @ 10:22 AM Dilation #2 Both eyes: 1.0% Mydriacyl, 2.5% Phenylephrine @ 10:22 AM Dilation Comments Patient cautioned that effects of dilation may last 2-7 hours dependant upon individual reaction. It was discussed that driving while dilated is not recommended. Strabismus Exam Correction: va Distance Near Near +3DS N Bifocals cover/uncover, and alternate cover EXTERNAL: The ocular adnexae are unremarkable. SLE: [...] injections q6-[address] Ceasar Pitt ([place], [place]) since approx April 2018; last injection there was 08-12-18 before presentation [place] -had steroid injection 07/02 in [place] for pseudophakic CME; questioned dx of wet AMD - s/p Eylea (10/02/23, 07/31/23, 05/27/23, 03/26/23, 01/17/23, 09/11/22, 07/05/22, 05/07/22, 03/05/22, 10/09/21, 06/21/21, 04-27-, 03/09/21, 01/25/21, 2-8-35--significant improvement, (had no injections in [place]--OCT and [place] worse after return to [place])03/08/20, -05-02, 12/03/19 --significant improvement w/ resolution of CME......02-05-19, 3-, 10-29-18) - 8 weeks since last injection , stable and dry at 6-8 weeks in past; worse at 21 weeks(pt missed appoint) 2. Nonexudative Age-Related Macular Degeneration OS -recommend AREDS2 MVI as directed and Amsler [...] on large c/d -followed by Dr. Trammell I have provided a significant and separately identifiable visit with today's procedure because a medically necessary exam was performed on the eye that did not undergo the procedure. TIMEOUT PROCEDURE: correct patient identity-YES correct procedure [...] Nursing Notes * Talisha Fuentes RN - 12/03/2023 10:48 AM EST Anibal Larson to receive 23 Eylea 2mg Injection of the Right eye. Correct eye confirmed with patient and marked by Nilton Anna DO Eylea 2mg lot # [id number] Exp. Date: 11/2024 * Talisha Fuentes RN - 12/03/2023 10:16 AM EST Anibal Larson is a 88 year old year old male who presents for Exud. AMD OD. Last Office Visit: 10/02/2023 (in office), Visit date not found (telemedicine) Patient currently states no change in vision. Are you diabetic? No Do you drive? no OCT image(s) of both eyes acquired and filed/scanned into chart. documented in this encounter Plan of Treatment Upcoming Encounters Date Type Department Care Team (Late st Contact Info) Description 01/28/2024 8:30 AM EDT Office Visit Ophthalmology, [facility] [address] [place] [address] Nilton Anna DO [address] [place] [address] Scheduled Orders Name Type Priority Associated Diagnoses Orde r Schedule RETINA SCAN DIAGNOSTIC IMAGE, POSTERIOR Procedures Routine Exudative age-related macular degeneration of right eye with active choroidal neovascularization (HCC) Ordered: 12/03/2023 Health Maintenance Due Date Last Done Comments Depression Screening 1947 Albumin/Creatinine Ratio 1954 CKD PHOS USE SMARTSET 74840 1954 DTaP,Tdap,and Td Vaccines (1 - Tdap) 1955 Zoster Vaccines (1 of 2) 1986 Pneumococcal Vaccine: 65+ Years (1 of 1 - PCV) 2001 COVID-19 Vaccine (3 - 2022- season) 2023 12/17/2020, 11/19/2020 Influenza Vaccine (FLU shot) (#1) 2023 06/21/2021, 07/25/2020, 07/22/2019, Additional history exists CKD HGB USE SMARTSET 64746 06/25/202406/25, 04/09/2023, 10/29/2022, Additional history exists GARDASIL-HPV [...] nonexudative age-related macular degeneration of left eye Nevus of choroid of left eye documented in this encounter Administered Medications Active Administered Medications - up to 3 most recent administrations Medication Order MAR Action Action Date Dose Rate Site Aflibercept (Eylea) intraviteal prefilled syringe 2 mg 2 mg, Intravitreal, PRN Other, Starting on Sat05/27/23 at 1522, Until Sat05/26/24 at 1521, For 365 days Given 12/03/2023 10:49 AM EST 2 mg Eye Right Given 10/02/2023 11:31 AM EST 2 mg E ye Right Given 07/31/2023 10:34 AM EDT 2 mg E ye Right ROPivacaine (Naropin) inj 1.5 mg 1.5 mg, Injection, PRN Other, Starting on Sat05/27/23 at 1522, Until Sat05/26/24 at 1521, For 365 days Given 12/03/2023 10:49 AM EST 1.5 mg Eye Right Given 10/02/2023 11:31 AM EST 1.5 mg E ye Right Given 07/31/2023 10:33 AM EDT 1.5 mg E ye Right documented in this encounter Care Teams Vamp Seamer Relationship Specialty Start Date End Date Pro, Eulalio Ledezma MD [address] [place] [address] PCP - General Internal Medicine 11/30/21 documented as of this encounter
--- OUTSIDE RECORDS SUMMARY | 2024-03-15 20:32 | External Medical Summary ---
Author Name Unknown Address Unknown Organization K0G:[facility] - [address] [place] [address] Laboratory Report Ordering Provider Test Date Status JOSE ROBERTO QUICK 01/14/2024 07:24:02 Final Observation Date Value Abnormality Reference (Units ) Status RBC, Urine 01/14/2024 07:24:02 3-5 Abnormal 0-2 (/HPF) Final WBC, Urine 01/14/2024 07:24:02 3-5 Abnormal 0-2 (/HPF) Final Bacteria [#/area] in Urine sediment by Microscopy high power field 01/14/2024 07:24:02 26-50 Abnormal 0-25 (/HPF) Final Performing Location [facility] - [address] [place] [address]
--- OUTSIDE RECORDS SUMMARY | 2024-03-15 20:32 | External Medical Summary ---
Author Name Unknown Address Unknown Organization K01:[facility] [place] - [address] [place] [address] Laboratory Report Ordering Provider Test Date Status JOSE ROBERTO QUICK 12/18/2023 05:45:00 Final Deficient: <20 ng/mL
Ins ufficient: 20-29 ng/mL
Recommended/Optimum:30-50 ng/mL

Vitamin D intoxication is rare. If suspicious of Vitamin D toxicity, evaluation of serum Calcium and PTH is recommended. Observation Date Value Abnormality Reference (Units ) Status 25-OH Vitamin D total 12/18/2023 05:45:00 35 >19 (ng/mL) Final Performing Location [facility] [place] - [address] [place] [address]
--- OUTSIDE RECORDS SUMMARY | 2024-03-15 20:32 | External Medical Summary ---
Author Name Unknown Address Unknown Organization K0G:[facility] - [address] [place] [address] Laboratory Report Ordering Provider Test Date Status JOSE ROBERTO QUICK 12/18/2023 05:45:00 Final Observation Date Value Abnormality Reference (Units ) Status BUN 12/18/2023 05:45:00 21 Above high normal 6-20 (mg/dL) Final Creatinine 12/18/2023 05:45:00 1.3 Above high normal 0.6-1.2 (mg/dL) Final Glomerular filtration rate/1.73 sq M.predicted [Volume Rate/Area] in Serum, Plasma or Blood by Creatinine-based formula (CKD-EPI) 12/18/2023 05:45:00 52 Below low normal >=60 (mL/min) Final eGFR is calculated based on the CKD-EPI 2020 equation SODIUM 12/18/2023 05:45:00 140 135-146 (m mol/L) Final Potassium 12/18/2023 05:45:00 4.3 3.5-5.1 (m mol/L) Final Cl 12/18/2023 05:45:00 104 98-107 (mm ol/L) Final CO2 12/18/2023 05:45:00 26 22-32 (mmo l/L) Final Anion gap 12/18/2023 05:45:00 10 7-15 (mmol /L) Final Glucose 12/18/2023 05:45:00 98 70-120 (mg /dL) Final Calcium 12/18/2023 05:45:00 9.0 8.4-10.2 ( mg/dL) Final Performing Location [facility] [address] - [address] [place] [address]
--- OUTSIDE RECORDS SUMMARY | 2024-03-15 20:32 | External Medical Summary | Summary of Care ---
Author Name Unknown Organization [facility] Address [address] [place] [address] Phone [phone] Care Team Providers Care Rough Planer Tender Name Role Phone Eulalio Beal MD Primary Care Provider [phone]- [phone] Encounter Details Date Type Department Care Team (Late st Contact Info) Description 01/14/2024 Orders Only Lab [facility] [address] [facility] [address] Emma Webster CRNP [address] [place] [address] Urinary tract infection* Allergies Active Allergy Reactions Criticality Noted Date Comments Diclofenac 07/05/2022 documented as of this encounter (statuses as of 01/14/2024) Medications Medication Sig Dispensed Refills Start Date [...] as of this encounter (statuses as of 01/14/2024) Active Problems Problem Noted Date Diagnosed Date Hypertension goal BP (blood pressure) < 140/90 0 11/14/2021 Gastroesophageal reflux disease without esophagi tis 11/14/2021 Frequent falls 11/14/2021 S/P TKR (total knee replacement), left History of lacunar cerebrovascular accident 10/2021 Hallucinations 11/14/2021 Psychosis 11/14/2021 Vascular dementia with behavior disturbance 10/2021 Stage 3a chronic kidney disease 11/14/2021 documented as of this encounter (statuses as of 01/14/2024) Immunizations Name Administration Dates Next Due Seasonal [...] 01/28/2024 8:30 AM EDT Office Visit Ophthalmology, [facility] [address] [place] [address] Nilton Anna DO [address] [place] [place] [address] Scheduled Orders Name Type Priority Associated Diagnoses Orde r Schedule URINALYSIS, REFLEX TO MICROSCOPIC Lab Routine Urinary tract infection Expected: 01/14/2024, Expires: 01/13/2025 CULTURE, URINE, QUANTITATIVE Lab Routine Urinary tract infection Expected: 01/14/2024, Expires: 01/13/2025 Health Maintenance Due Date Last Done Comments Depression Screening 1947 Albumin/Creatinine Ratio 1954 CKD PHOS USE SMARTSET 24558 1954 DTaP,Tdap,and Td Vaccines (1 - Tdap) 1955 Zoster Vaccines (1 of 2) 1986 Pneumococcal Vaccine: 65+ Years (1 of 1 - PCV) 2001 COVID-19 Vaccine (3 - season) 2023 12/17/2020, 11/19/2020 Influenza Vaccine (FLU shot) (Season Ended) 2024 06/21/2021, 07/25/2020, 07/22/2019, Additional history exists CKD HGB USE SMARTSET 91195 12/17/202412/17, 06/25/2023, 04/09/2023, Additional history exists GARDASIL-HPV [...] as of this encounter Visit Diagnoses Diagnosis Urinary tract infection- Primary Urinary tract infection, site not specified documented in this encounter Care Teams Rough Planer Tender Relationship Specialty Start Date End Date Pro, Eulalio Ledezma MD [address] [place] [address] PCP - General Internal Medicine 11/30/21 documented as of this encounter
--- OUTSIDE RECORDS SUMMARY | 2024-03-15 20:32 | External Medical Summary | Summary of Care ---
Author Name Unknown Organization [facility] Address [address] [place] [address] Phone [phone] Care Team Providers Care Rotary Drier Operator Name Role Phone Pro, Eulalio Ledezma MD Primary Care Provider [phone]- [phone] Reason for Visit * Reason Comments Follow Up 8-10 WEEK F/U; PT SINCLAIR S NO COMPLAINTS SINCE JOHN * Precert (Within 10 days (routine)) - Authorized Specialty Diagnoses / Procedures Referred By Annabella loza Referred To Contact Ophthalmology Diagnoses Exudative age-related macular degeneration, right eye, with active choroidal neovascularization (HCC) Procedures IN AFLIBERCEPT INJECTION IN INTRAVITREAL NJX PHARMACOLOGIC AGT SPX Nilton Anna DO [address] [place] [place] [address] Ophthalmology [facility] [address] [facility] [place] [address] Referral ID Status Reason Start Date Expiration Date V isits Requested Visits Authorized [id number] Authorized Precert 02/19/2022 10/13/2099 99 99 Encounter Details Date Type Department Care Team (Late st Contact Info) Description 01/28/2024 8:30 AM EDT Office Visit Ophthalmology, [facility] [address] [facility] [place] [address] Nilton Anna, [address] [place] [address] Exudative age-related macular degeneration of right eye [...] - 01/28/2024 8:30 AM EDT [facility] [place] [...] injections q6-[address] Ceasar Pitt ([place], [place]) since approx April 2018; last injection [place] was 08-12-18 before [place] -[place] steroid injection 07/02 in [place] for pseudophakic CME; questioned dx of wet AMD - s/p Eylea (12/03/23, 10/02/23, 07/31/23, 05/27/23, 03/26/23, 01/17/23, 09/11/22, 07/05/22, 05/07/22, 03/05/22, 10/09/21, 06/21/21, 04-27-21, 03/09/21, 01/25/21, 9-8-41--significant improvement, (had no injections in [place]--[place] and [place] worse after return to [place])03/08/20, 4--, 12/03/19 --significant improvement w/ r esolution [...] Nilton Anna DO Eylea 2mg lot # [id number] Exp. Date: 12/2024 * Liane Askew MED [...] Albumin/Creatinine Ratio 1953 CKD PHOS USE SMARTSET 08463 1954 DTaP,Tdap,and Td Vaccines (1 - Tdap) 1955 Zoster Vaccines (1 of 2) 1986 Pneumococcal Vaccine: 65+ Years (1 of 1 - PCV) 2001 COVID-19 Vaccine (3 - season) 2023 12/17/2020, 11/19/2020 Influenza Vaccine (FLU shot) (Season Ended) 2024 06/21/2021, 07/25/2020, 07/22/2019, Additional history exists CKD HGB USE SMARTSET 26686 12/17/202412/17, 06/25/2023, 04/09/2023, Additional history exists GARDASIL-HPV [...] Right documented in this encounter Care Teams Rotary Drier Operator Relationship Specialty Start Date End Date Pro, Eulalio Ledezma MD [address] [place] [address] PCP - General Internal Medicine 11/30/21 documented as of this encounter
[2024-03-15] MEDS: OPTIRAY 320 125ml IV ONE (20:36)
--- NOTE | 2024-03-15 20:47 | Emergency Department Note ---
Impression & Plan Stroke ED Provider Note NAME: RAKESH HENSON AGE: 88 SEX: M : 1935 ARRIVES VIA: Ambulance INFORMANT: Patient, ED PROVIDER(S): J Carlos Craig MD CHIEF COMPLAINT: Stroke alert HPI: This is an 88-year-old male with history of Alzheimer's dementia presenting as a stroke alert. Patient reportedly was last seen normal at around 6 PM after he finished dinner. He was doing activities when he began having difficulty with his right side. Staff at his facility note that he had a facial droop as well as weakness of the right upper and lower extremity. EMS states that he was not responding to their questioning. He does have a history of dementia and as per EMS, he is not oriented. I discussed patient's baseline status with his daughter who lives in [facility]. She states that he does have dementia but usually remembers who she is and is fairly sharp otherwise. While there is no advanced directive provided, she states that it is meant to preserve his quality of life if necessary. ROS: n/a PHYSICAL EXAMINATION: General: resting comfortably in no acute distress Head: Normocephalic and atraumatic Eyes: Normal inspection, extraocular muscles intact Ear, nose, throat: Normal external exam Neck: Normal range of motion Respiratory: lungs clear to auscultation bilaterally Cardiovascular: Regular rate/rhythm, no murmur GI: soft, nontender, no guarding or rebound Extremities: nontender, moves all extremities Neuro: Aphasic, 0/5 strength in the right upper and lower extremity, left upper extremity 5/5, NIH 19 Skin: Warm, dry, and intact MEDICAL DECISION MAKING: This is an 88-year-old male with history of Alzheimer's dementia presenting as a stroke alert. Patient is flaccid in the right upper and lower extremity with right facial droop. Aphasic currently. He also is only occasionally moving his left lower extremity. He does follow some commands. -Discussed care with patient's daughter at length about current status and need for decision about lytics if required. She states that she will think about it. Otherwise advance directive to daughter's memory is focused on quality of life and returning to this quality of life if possible. -Discussed with [facility] but was able to tell me the last known normal around 6 PM when he finished dinner. He had finished dinner without any issues and walked to the game room. At this point he was found altered sometime after 6 PM and EMS was alerted. This is currently within the window for lytics. -Discussed care with stroke neurologist, Dr Hurtado, who was told of clinical presentation/physical exam and my current NIH of 19. She will log into the stroke cart at this time. She states she would like to wait for the official radiology reads prior to consideration of TNKase. She did review the images herself and does not see any LVO or hemorrhage on the CT. 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 After another lengthy conversation I discussed the risk/benefits of thrombolytics w/ daughter on phone. I clarified that there are no contraindications as well. She states that based on the advance directive that she reads back to me that he is not in a permanent vegetative state and would want further measures to improve his quality of life. She states she would like for us to give lytics if indicated. At this time patient is within window with symptoms that are fairly severe and would likely benefit from TNKase. Will order at this time. -Shortly prior to administration of TNKase, patient spontaneously had improvement in symptoms. He was now talking, notes only his name and say words. He was not oriented but was making sense and following commands. He is able to move his right upper and lower extremity at this time. Dr. Hurtado was made aware and she logged onto the telestroke cart again. She does continue to recommend lytics in light of this improvement. -Otherwise she recommends atorvastatin 80 mg and a 1 L normal saline bolus. She discussed with Dr. Salazar who states that endovascular would not intervene in this situation. -Will admit patient to ICU at this time under Dr. Soto. Care discussed with both the resident physician and Dr. Soto directly. -Discussed findings with daughter and patient's improvement. Discussion occurred with patient/family: We discussed the risks of IV thrombolytic therapy including a 5-7% risk of possible significant hemorrhage which can be fatal as well as about a 1% risk of angioedema. We also noted that IV thrombolytic therapy provides about a 30-40% probability of improved functional status and lower disability at 90 days than if not treated with thrombolytic. After discussion regarding risks and benefits as well as the inclusion and exclusion criteria, the patient then consented to receive IV thrombolytic therapy. Differential diagnosis: Stroke, TIA, UTI, encephalopathy, sepsis ER treatment provided: See below Diagnostics interpreted by me: ECG: ECG independently interpreted by me with normal sinus rhythm, rate of 67, normal axis, first-degree AV block, normal QRS, normal QTc, no ST segment elevations consistent with STEMI criteria, PVCs Cardiac Monitoring: An order was placed for continuous cardiac monitoring. The monitor shows a rate of 60 with sinus rhythm. Laboratory studies: As stated above and show below. Imaging studies: See below. Critical Care Note: I have personally spent 70 minutes of critical care time in the direct management of this patient. This includes bedside care, interpretation of diagnostic studies, and testing, discussion with consultants, patient, and family members, and other required patient management activities. This 70 minutes is in excess of all separately billable procedures. Past Med/Surg History Problem List (Updated 03/16/24 @ 01:53 by J Carlos Craig MD) Stroke (Acute) ALBIN (acute kidney injury) Stroke aborted by administration of thrombolytic agent Alzheimer's disease, unspecified Tremor Gait disturbance Hypertension Kidney stones Hx of and passed on own No current issues Macular degeneration Right eye- follows routinely with eye doctor Insomnia Chronic cough (Chronic) Sacral ulcer Chronic knee pain after total replacement of left knee joint (Chronic) Fatigue (Chronic) Nocturia (Chronic) Urinary incontinence History of nephrolithiasis BPH w urinary obs/LUTS Hematoma of frontal scalp Dermatitis Falls CHI (closed head injury) (Acute) Altered mental status (Acute) Small vessel disease, cerebrovascular Dementia Mild reactive airways disease Vitamin D deficiency Stenosis, spinal, lumbar Spondylolisthesis at L4-L5 level Paroxysmal atrial fibrillation Medical History Posterior vitreous detachment Glaucoma Dementia Vitamin D deficiency Paroxysmal atrial fibrillation Frequent falls 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 Spondylolisthesis at L4-L5 level Macular degeneration Kidney stones Hypertension Stenosis, spinal, lumbar Surgical History History of total left knee replacement Status post revision of total replacement of left knee (~12/2020) S/P cataract surgery Hx of total knee replacement Family History Father Myocardial infarction Mother Myocardial infarction Stroke Brother Melanoma Cancer Other No family history of adverse response to anesthesia No family history of bleeding disorder Denies family history of Ovarian cancer Prostate cancer Breast cancer Colorectal cancer Social History Smoking Status: Never smoker Second Hand Exposure: No; Do You Dip or Chew Tobacco: No; Hx Alcohol Use: No Hx Substance Use: No Preferred Language: Turkish Communication Ability: Effective Visual Impairment: No Limitations Hearing Ability: Normal Public Speaking Coach Required: No Beliefs That Will Affect Care: None marital status: Single Current Living Situation: Residential current occupational status: retired Feels Safe at Home: Yes Childhood Exposure to Second-Hand Smoke: No Dental Care, Regularly: Yes Physical Activity Frequency: 1-2 Times per Week Seatbelt Use: always Sunscreen Use: No Assistive Devices: Glasses and Walker Allergies Allergies Allergy/AdvReac Type Severity Reaction Status Date / Time diclofenac [From Voltaren] Allergy Mild Rash Verified 03/15/24 22:58 Home Meds Home Medications Medication Instructions Recorded Confirmed acetaminophen 325 mg tablet 650 mg PO Q4 PRN Fever Or Pain 03/15/24 03/15/24 (Tylenol) acetaminophen 650 mg 650 mg PO BID 03/15/24 03/15/24 tablet,extended release (Tylenol Arthritis Pain) atenolol 25 mg tablet 25 mg PO DAILY 03/15/24 03/15/24 donepezil 5 mg tablet (Aricept) 5 mg PO DAILY 03/15/24 03/15/24 duloxetine 30 mg capsule,delayed 30 mg PO DAILY 03/15/24 03/15/24 release (Cymbalta) duloxetine 60 mg capsule,delayed 60 mg PO DAILY 03/15/24 03/15/24 release famotidine 20 mg tablet 20 mg PO BID 03/15/24 03/15/24 melatonin 1 mg tablet 2 mg PO HS 03/15/24 03/15/24 memantine 10 mg tablet 10 mg PO BID 03/15/24 03/15/24 multivitamin 1 tab PO DAILY 03/15/24 03/15/24 polyethylene glycol 3350 17 gram 17 g PO .Q72HRS PRN Constipation 03/15/24 03/15/24 oral powder packet (Miralax) propylene glycol 0.6 % eye drops 2 drp OPB BID 03/15/24 03/15/24 (Systane Balance) tamsulosin 0.4 mg capsule 0.4 mg PO HS 03/15/24 03/15/24 vitamins A,C,N-fofj-ifdfvp 2,148 1 tab PO BID 03/15/24 03/15/24 mcg-113 mg-45 mg-17.4 mg tablet (PreserVision AREDS) Results & Data (ED) Vital Signs Vital Signs - 24 hr 03/15/24 20:36 03/15/24 20:49 03/15/24 20:53 Temperature 36.6 C Temperature Source Axillary Pulse Rate 72 63 Pulse Rate [Apical] Pulse Rate from SpO2 Sensor Respiratory Rate 16 Respiratory Effort / Characteristics Non-Labored Spontaneous Respiratory Depth Normal Respiratory Pattern Regular Blood Pressure 151/101 H 148/80 H Blood Pressure [Left Arm] Blood Pressure Mean 117 120 Blood Pressure Mean [Left Arm] Blood Pressure Position Semi-fowlers Blood Pressure Position [Left Arm] Pulse Oximetry 95 Oxygen Delivery Method Room Air Sepsis Recent Fever Within 48 Hours No Sepsis New/Unexplained Change in Mental Status Yes Sepsis Action Taken by Nursing No Action Required 03/15/24 21:00 03/15/24 21:03 03/15/24 21:05 Temperature Temperature Source Pulse Rate 62 61 Pulse Rate [Apical] Pulse Rate from SpO2 Sensor 62 61 Respiratory Rate 22 16 Respiratory Effort / Characteristics Respiratory Depth Respiratory Pattern Blood Pressure 166/77 H Blood Pressure [Left Arm] Blood Pressure Mean 114 Blood Pressure Mean [Left Arm] Blood Pressure Position Blood Pressure Position [Left Arm] Pulse Oximetry 95 95 Oxygen Delivery Method Room Air Room Air Sepsis Recent Fever Within 48 Hours Sepsis New/Unexplained Change in Mental Status Sepsis Action Taken by Nursing 03/15/24 21:12 03/15/24 21:27 03/15/24 21:36 Temperature Temperature Source Pulse Rate 63 78 67 Pulse Rate [Apical] Pulse Rate from SpO2 Sensor 56 L 60 67 Respiratory Rate 18 22 15 Respiratory Effort / Characteristics Respiratory Depth Respiratory Pattern Blood Pressure Blood Pressure [Left Arm] Blood Pressure Mean Blood Pressure Mean [Left Arm] Blood Pressure Position Blood Pressure Position [Left Arm] Pulse Oximetry 92 96 97 Oxygen Delivery Method Room Air Room Air Room Air Sepsis Recent Fever Within 48 Hours Sepsis New/Unexplained Change in Mental Status Sepsis Action Taken by Nursing 03/15/24 21:38 03/15/24 21:45 03/15/24 21:50 Temperature Temperature Source Pulse Rate 63 Pulse Rate [Apical] 78 72 Pulse Rate from SpO2 Sensor Respiratory Rate 16 21 18 Respiratory Effort / Characteristics Non-Labored Spontaneous Non-Labored Spontaneous Respiratory Depth Normal Normal Respiratory Pattern Regular Regular Blood Pressure 161/80 H Blood Pressure [Left Arm] 166/95 H 176/109 H Blood Pressure Mean 119 Blood Pressure Mean [Left Arm] 118 131 Blood Pressure Position Blood Pressure Position [Left Arm] Lying Lying Pulse Oximetry 96 93 95 Oxygen Delivery Method Room Air Room Air Room Air Sepsis Recent Fever Within 48 Hours Sepsis New/Unexplained Change in Mental Status Sepsis Action Taken by Nursing 03/15/24 21:52 03/15/24 21:56 03/15/24 22:01 Temperature Temperature Source Pulse Rate Pulse Rate [Apical] 67 Pulse Rate from SpO2 Sensor Respiratory Rate 22 Respiratory Effort / Characteristics Non-Labored Spontaneous Respiratory Depth Normal Respiratory Pattern Regular Blood Pressure 181/107 H Blood Pressure [Left Arm] 176/109 H Blood Pressure Mean 142 Blood Pressure Mean [Left Arm] 131 Blood Pressure Position Blood Pressure Position [Left Arm] Lying Pulse Oximetry 97 Oxygen Delivery Method Room Air Room Air Sepsis Recent Fever Within 48 Hours Sepsis New/Unexplained Change in Mental Status Sepsis Action Taken by Nursing 03/15/24 22:03 03/15/24 22:06 03/15/24 22:07 Temperature 36.4 C L Temperature Source Axillary Pulse Rate 59 L Pulse Rate [Apical] 68 Pulse Rate from SpO2 Sensor Respiratory Rate 19 22 Respiratory Effort / Characteristics Non-Labored Spontaneous Respiratory Depth Normal Respiratory Pattern Regular Blood Pressure Blood Pressure [Left Arm] 184/102 H Blood Pressure Mean Blood Pressure Mean [Left Arm] 129 Blood Pressure Position Blood Pressure Position [Left Arm] Pulse Oximetry 97 Oxygen Delivery Method Room Air Sepsis Recent Fever Within 48 Hours Sepsis New/Unexplained Change in Mental Status Sepsis Action Taken by Nursing 03/15/24 22:09 03/15/24 22:09 03/15/24 22:18 Temperature Temperature Source Pulse Rate 63 67 Pulse Rate [Apical] Pulse Rate from SpO2 Sensor 63 62 Respiratory Rate 18 19 Respiratory Effort / Characteristics Respiratory Depth Respiratory Pattern Blood Pressure 184/102 H Blood Pressure [Left Arm] Blood Pressure Mean 149 Blood Pressure Mean [Left Arm] Blood Pressure Position Blood Pressure Position [Left Arm] Pulse Oximetry 98 96 Oxygen Delivery Method Sepsis Recent Fever Within 48 Hours Sepsis New/Unexplained Change in Mental Status Sepsis Action Taken by Nursing 03/15/24 22:21 03/15/24 22:21 03/15/24 22:22 Temperature 36.5 C Temperature Source Axillary Pulse Rate 62 Pulse Rate [Apical] 70 Pulse Rate from SpO2 Sensor 62 Respiratory Rate 20 20 Respiratory Effort / Characteristics Non-Labored Spontaneous Respiratory Depth Normal Respiratory Pattern Regular Blood Pressure 179/98 H Blood Pressure [Left Arm] 179/98 H Blood Pressure Mean 139 Blood Pressure Mean [Left Arm] 125 Blood Pressure Position Blood Pressure Position [Left Arm] Lying Pulse Oximetry 99 98 Oxygen Delivery Method Room Air Sepsis Recent Fever Within 48 Hours Sepsis New/Unexplained Change in Mental Status Sepsis Action Taken by Nursing 03/15/24 22:30 Temperature Temperature Source Pulse Rate 59 L Pulse Rate [Apical] Pulse Rate from SpO2 Sensor 55 L Respiratory Rate 17 Respiratory Effort / Characteristics Respiratory Depth Respiratory Pattern Blood Pressure Blood Pressure [Left Arm] Blood Pressure Mean Blood Pressure Mean [Left Arm] Blood Pressure Position Blood Pressure Position [Left Arm] Pulse Oximetry 96 Oxygen Delivery Method Sepsis Recent Fever Within 48 Hours Sepsis New/Unexplained Change in Mental Status Sepsis Action Taken by Nursing Laboratory Data 03/15/24 20:52 03/15/24 20:52 Lab Results 03/15/24 03/15/24 Range/Units 20:52 22:19 WBC 7.96 (4.8-10.8) K/ul RBC 3.56 L (4.70-6.10) M/uL Hgb 11.1 L (14.0-18.0) g/dl Hct 34.1 L (42.0-52.0) % MCV 95.8 (80.0-100.0) fL MCH 31.2 (25.0-34.0) pg MCHC 32.6 (32.0-36.0) g/dL RDW Std Deviation 46.1 (36.4-46.3) fL RDW Coeff of Bhavana 13.1 (11.5-14.5) % Plt Count 169 (130-400) K/uL MPV 11.1 (9.4-12.4) fL Immature Gran % (Auto) 0.4 % Neut % (Auto) 68.6 % Lymph % (Auto) 14.6 % Johnston % (Auto) 12.1 % Eos % (Auto) 3.8 % Baso % (Auto) 0.5 % Neut # (Auto) 5.47 (1.40-6.50) K/uL Lymph # (Auto) 1.16 L (1.20-3.40) K/uL Johnston # (Auto) 0.96 H (0.11-0.59) K/uL Eos # (Auto) 0.30 (0.00-0.50) K/uL Baso # (Auto) 0.04 (0.00-0.20) K/uL Immature Gran # (Auto) 0.03 (0.01-0.20) K/uL PT 11.0 (9.0-12.0) Seconds INR 1.0 (0.9-1.1) APTT 27 (21-31) Seconds PTT Ratio 1.0 Sodium 139 (136-145) mmol/L Potassium 4.1 (3.5-5.1) mmol/L Chloride 107 (98-107) mmol/L Carbon Dioxide 26 (21-32) mmol/L Anion Gap 6 (3-11) BUN 44 H (6-23) mg/dl Creatinine 1.96 H (0.6-1.4) mg/dl Est Cr Clr Drug Dosing Not Reportable Est GFR ( Amer) 34.6 ml/min Est GFR (Non-Af Amer) 29.9 ml/min BUN/Creatinine Ratio 22.4 H (10-20) Glucose 115 H (70-99(Fasting)) mg/dl POC Glucose 127 H (70-99) mg/dl Calcium 8.3 L (8.6-10.3) mg/dl Magnesium 1.9 (1.7-2.4) mg/dl Total Bilirubin 0.3 (0.2-1.0) mg/dl AST 15 (13-39) U/L ALT 11 (7-52) U/L Alkaline Phosphatase 97 (34-104) U/L Troponin I High Sens 9.7 (0-20) pg/ml Total Protein 5.5 L (6.0-8.3) gm/dl Albumin 3.3 L (3.4-5.0) gm/dl Globulin 2.2 L (2.5-4.0) gm/dl Albumin/Globulin Ratio 1.5 (0.9-2) Urine Color Yellow Urine Appearance Clear (Clear) Urine pH 5.5 (4.5-7.5) Ur Specific [place] > 1.045 H (1.000-1.030) Urine Protein 1+ H (Negative) Urine Glucose (UA) Negative (Negative) Urine Ketones Trace H (Negative) Urine Blood Negative (Negative) Urine Nitrite Negative (Negative) Urine Bilirubin Negative (Negative) Urine Urobilinogen Negative (Negative) Ur Leukocyte Esterase Negative (Negative) Urine WBC (Auto) 0-5 (0-5) /hpf Urine RBC (Auto) 3-5 H (0-2) /hpf U Hyaline Cast (Auto) 3-5 H (0-2) /lpf U Epithel Cells (Auto) 0-2 (0-2) /hpf Urine Bacteria (Auto) None Seen (None Seen) Administered Medications Discontinued Medications Atorvastatin Calcium (Atorvastatin 40 Mg Tab) 80 mg PO NOW STA Stop: 03/15/24 22:16 Last Admin: 03/15/24 22:49 Dose: 80 mg Documented By: Tenecteplase 24 mg/ Syringe 4.8 mls @ 57.6 mls/min IV NOW ONE; Protocol Stop: 03/15/24 21:38 Last Admin: 03/15/24 21:43 Dose: 57.6 mls/min Documented By: Co-signed By: DENNY Sodium Chloride (Nss) 1,000 mls @ 999 mls/hr IV .Q1H1M ONE Stop: 03/15/24 23:34 Last Admin: 03/15/24 22:49 Dose: 999 mls/hr Documented By: Ioversol (Optiray 320 125ml) 120 ml IV ONCE ONE Stop: 03/15/24 20:36 Last Admin: 03/15/24 20:36 Dose: 120 ml Documented By: WYATT Miscellaneous (Stat Iv/Im) 1 each N/A NOW STA Stop: 03/15/24 21:28 Last Admin: 03/15/24 21:44 Dose: 1 each Documented By: Sodium Chloride (Sodium Chloride 0.9% 10ml Flush) 20 ml IV NOW STA Stop: 03/15/24 21:28 Last Admin: 03/15/24 21:41 Dose: 20 ml Documented By: Imaging Data Radiologist's Impression: Head CT 03/15/24 20:32 CT angio head w con, CT head/brain wo con CLINICAL HISTORY: neuro deficit, acute stroke suspected TECHNIQUE: Contiguous axial CT images of the head were acquired from the base of the skull to the vertex without intravenous contrast administration. CT angiography of the head was performed following intravenous administration of iodinated contrast. Coronal and sagittal MIPS were obtained from the axial data set and were submitted for review. Automated dose lowering techniques and/or adjustment according to patient size were utilized for this examination. All measurements were calculated based on NASCET criteria. CT DOSE: 3325.91 mGy.cm Comparison: None available at the time of this dictation. FINDINGS: CT head: Areas of decreased attenuation are present in the periventricular and subcortical white matter bilaterally consistent with small vessel ischemic disease. Generalized cerebral atrophy with commensurate enlargement of the ventricles, sulci, and cisterns is also present. There is no acute intracranial hemorrhage or evidence of acute territorial infarction. No shift of the midline structures, mass effect, or extra-axial abnormalities are shown. Atherosclerotic calcifications are present in the intracranial segments of the internal carotid arteries. Foci of encephalomalacia compatible with old infarcts. CTA Head: There is abrupt cut off of the left posterior cerebral artery near its origin. origin of the right posterior cerebral artery is seen. IMPRESSION: 1. No acute intracranial hemorrhage, evidence of acute territorial infarction, or other acute intracranial disease process. 2. Abrupt cut off of the left posterior cerebral artery near its origin. 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 Assessment of stenosis of the internal carotid arteries is based on NASCET criteria. ACT 112: Negative or not required by law. Electronically signed by: Darryl Dowell M.D. 03/15/2024 9:16 PM Head CTA 03/15/24 20:32 CT angio head w con, CT head/brain wo con CLINICAL HISTORY: neuro deficit, acute stroke suspected TECHNIQUE: Contiguous axial CT images of the head were acquired from the base of the skull to the vertex without intravenous contrast administration. CT angiography of the head was performed following intravenous administration of iodinated contrast. Coronal and sagittal MIPS were obtained from the axial data set and were submitted for review. Automated dose lowering techniques and/or adjustment according to patient size were utilized for this examination. All measurements were calculated based on NASCET criteria. CT DOSE: 3325.91 mGy.cm Comparison: None available at the time of this dictation. FINDINGS: CT head: Areas of decreased attenuation are present in the periventricular and subcortical white matter bilaterally consistent with small vessel ischemic disease. Generalized cerebral atrophy with commensurate enlargement of the ventricles, sulci, and cisterns is also present. There is no acute intracranial hemorrhage or evidence of acute territorial infarction. No shift of the midline structures, mass effect, or extra-axial abnormalities are shown. Atherosclerotic calcifications are present in the intracranial segments of the internal carotid arteries. Foci of encephalomalacia compatible with old infarcts. CTA Head: There is abrupt cut off of the left posterior cerebral artery near its origin. origin of the right posterior cerebral artery is seen. IMPRESSION: 1. No acute intracranial hemorrhage, evidence of acute territorial infarction, or other acute intracranial disease process. 2. Abrupt cut off of the left posterior cerebral artery near its origin. 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 Assessment of stenosis of the internal carotid arteries is based on NASCET criteria. ACT 112: Negative or not required by law. Electronically signed by: Darryl Dowell M.D. 03/15/2024 9:16 PM Neck CTA 03/15/24 20:32 CT angio neck with con CLINICAL HISTORY: neuro deficit, acute stroke suspected TECHNIQUE: CT angiography of the neck was performed following intravenous administration of iodinated contrast. Coronal and sagittal MIPS were obtained from the axial data set and were submitted for review. Automated dose lowering techniques and/or adjustment according to patient size were utilized for this examination. All measurements were calculated based on NASCET criteria. Comparison: None available at the time of this dictation. FINDINGS: Lungs and soft tissues are unremarkable. CTA Neck: A 3 vessel aortic arch is shown. There is no significant atherosclerotic plaque in the aortic arch or the origins of the innominate, left common carotid, and left subclavian arteries. [place]us course of bilateral carotid arteries noted. Nonhemodynamically significant atherosclerotic disease is seen in the bilateral carotid bulbs. The right vertebral artery is dominant. IMPRESSION: No occlusion, hemodynamically significant stenosis, or dissection in the major cervical arteries. Assessment of stenosis of the internal carotid arteries is based on NASCET criteria. ACT 112: Negative or not required by law. Electronically signed by: Darryl Dowell M.D. 03/15/2024 9:26 PM Discharge Plan Visit Data Chief Complaint: Stroke/CVA Symptoms ED Provider: J Carlos Craig Discharge Problem: Stroke Patient Disposition: Admitted As Inpatient Discharge Instructions Interventions: ED Discharge Assessment Last Done: 03/15/24 23:28
--- NOTE | 2024-03-15 21:19 | CT Scan Report ---
CT angio head w con, CT head/brain wo con CLINICAL HISTORY: neuro deficit, acute stroke suspected TECHNIQUE: Contiguous axial CT images of the head were acquired from the base of the skull to the gurvinder katherine without intravenous contrast administration. CT angiography of the head was performed following intravenous administration of iodinated contrast. Coronal and sagittal MIPS were obtained from the ax ial data set and were submitted for review. Automated dose lowering techniques and/or adjustment acc ording to patient size were utilized for this examination. All measurements were calculated based on NASCET criteria. CT DOSE: 3325.91 mGy.cm Comparison: None available at the time of this dictation. FINDINGS: CT head: Areas of decreased attenuation are present in the periventricular and subcortical white aliza er bilaterally consistent with small vessel ischemic disease. Generalized cerebral atrophy with comme nsurate enlargement of the ventricles, sulci, and cisterns is also present. There is no acute intracr anial hemorrhage or evidence of acute territorial infarction. No shift of the midline structures, mas s effect, or extra-axial abnormalities are shown. Atherosclerotic calcifications are present in the intracranial segments of the internal carotid arteries. Foci of encephalomalacia compatible with old infarcts. CTA Head: There is abrupt cut off of the left posterior cerebral artery near its origin. origin of the right posterior cerebral artery is seen. IMPRESSION: 1. No acute intracranial hemorrhage, evidence of acute territorial infarction, or other acute intrac ranial disease process. 2. Abrupt cut off of the left posterior cerebral artery near its origin. Findings are age indetermin ate but a left SUPERVISOR [employer]TERATION WORKROOM territory infarct cannot be excluded despite lack of edema on noncontrast CT. Assessment of stenosis of the internal carotid arteries is based on NASCET criteria. ACT 112: Negative or not required by law. Electronically signed by: Darryl Dowell M.D. 03/15/2024 9:16 PM
[2024-03-15 21:24] LABS: Alanine Aminotransferase 11 U/L (7-52); Albumin Globulin Ratio 1.5 (0.9-2); Albumin Level 3.3 gm/dl (3.4-5.0); Alkaline Phosphatase 97 U/L (34-104); Anion Gap 6 (3-11); Aspartate Aminotransferase 15 U/L (13-39); BUN Creatinine Ratio 22.4 (10-20); Bilirubin,Total 0.3 mg/dl (0.2-1.0); Blood Urea Nitrogen 44 mg/dl (6-23); Calcium 8.3 mg/dl (8.6-10.3); Carbon Dioxide 26 mmol/L (21-32); Chloride 107 mmol/L (98-107); Est GFR (African American) 34.6 ml/min; Est GFR (Non-African American) 29.9 ml/min; Globulin 2.2 gm/dl (2.5-4.0); Glucose 115 mg/dl (70-99(Fasting)); Magnesium 1.9 mg/dl (1.7-2.4); Potassium 4.1 mmol/L (3.5-5.1); Sodium 139 mmol/L (136-145); Total Protein 5.5 gm/dl (6.0-8.3)
--- NOTE | 2024-03-15 21:28 | CT Scan Report ---
CT angio neck with con CLINICAL HISTORY: neuro deficit, acute stroke suspected TECHNIQUE: CT angiography of the neck was performed following intravenous administration of iodinate d contrast. Coronal and sagittal MIPS were obtained from the axial data set and were submitted for re view. Automated dose lowering techniques and/or adjustment according to patient size were utilized f or this examination. All measurements were calculated based on NASCET criteria. Comparison: None available at the time of this dictation. FINDINGS: Lungs and soft tissues are unremarkable. CTA Neck: A 3 vessel aortic arch is shown. There is no significant atherosclerotic plaque in the aor tic arch or the origins of the innominate, left common carotid, and left subclavian arteries. [place] us course of bilateral carotid arteries noted. Nonhemodynamically significant atherosclerotic disease is seen in the bilateral carotid bulbs. The right vertebral artery is dominant. IMPRESSION: No occlusion, hemodynamically significant stenosis, or dissection in the major cervical arteries. Assessment of stenosis of the internal carotid arteries is based on NASCET criteria. ACT 112: Negative or not required by law. Electronically signed by: Darryl Dowell M.D. 03/15/2024 9:26 PM
[2024-03-15 21:30] LABS: Troponin I High Sensitivity 9.7 pg/ml (0-20)
[2024-03-15] MEDS ORDERED: No Aspirin within 24hrs of THROMBOLYTIC-Stroke PO SCH (21:30)
[2024-03-15 21:31] LABS: Basophils # (auto) 0.04 K/uL (0.00-0.20); Basophils % (auto) 0.5 %; Eosinophils % (auto) 3.8 %; Hematocrit (blood only) 34.1 % (42.0-52.0); Hemoglobin 11.1 g/dl (14.0-18.0); Immature Granulocytes # (auto) 0.03 K/uL (0.01-0.20); Immature Granulocytes % (auto) 0.4 %; Lymphocytes # (auto) 1.16 K/uL (1.20-3.40); Lymphocytes % (auto) 14.6 %; Mean Corpuscular Hemoglobin 31.2 pg (25.0-34.0); Mean Corpuscular Hgb Conc 32.6 g/dL (32.0-36.0); Mean Corpuscular Volume 95.8 fL (80.0-100.0); Mean Platelet Volume 11.1 fL (9.4-12.4); Monocytes # (auto) 0.96 K/uL (0.11-0.59); Monocytes % (auto) 12.1 %; Neutrophils # (auto) 5.47 K/uL (1.40-6.50); Neutrophils % (auto) 68.6 %; Platelet Count 169 K/uL (130-400); RDW Coefficient of Variation 13.1 % (11.5-14.5); RDW Standard Deviation 46.1 fL (36.4-46.3); Red Blood Count 3.56 M/uL (4.70-6.10); White Blood Count 7.96 K/ul (4.8-10.8)
[2024-03-15] MEDS: SODIUM CHLORIDE 0.9% 10ML FLUSH IV STA (21:41)
[2024-03-15 21:43] LABS: Partial Thromboplastin Time 27 Seconds (21-31)
[2024-03-15] MEDS: TENECTEPLASE 24 MG in SYRINGE 0 ML IV ONE (21:43)
[2024-03-15] MEDS: STAT IV/IM STA (21:44)
[2024-03-15 22:31] LABS: Appearance Urine Clear (Clear); Bacteria Urine Automated None Seen (None Seen); Bilirubin Urine Negative (Negative); Blood Urine Negative (Negative); Color Urine Yellow; Epithelial Cell Urine Auto 0-2 /hpf (0-2); Glucose Urine UA Negative (Negative); Ketones Urine Trace (Negative); Leukocyte Esterase Urine Negative (Negative); Nitrite Urine Negative (Negative); Protein Urine 1+ (Negative); Specific Gravity Urine > 1.045 (1.000-1.030); Urobilinogen Urine Negative (Negative); WBC Urine Automated 0-5 /hpf (0-5); pH Urine 5.5 (4.5-7.5)
--- NOTE | 2024-03-15 22:48 | History & Physical Report ---
Date of Service March 15, 2024 Assessment & Plan (1) Stroke aborted by administration of thrombolytic agent: Plan: Acute mental status change - right sided weakness of upper and lower extremities, right facial droop. Stroke alert called. CTA Head with abrupt cut o ff of the left posterior cerebral artery. [place] tele stroke consulted. Patient improving but not back to baseline, recommend TNKase - no thrombectomy. Improvement continued with TNKase. Start atorvastatin 80 mg. Will need ASA therapy as well. Recommend ativan or versed if seizure like activity. Low threshold to repeat CT if concern for intracranial bleed. Unknown prior ASCVD history - lipids, HbA1c. Admit to ICU for monitoring - anticipate de-escalation of care in the near future MRI Brain w/o contrast Neuro consult - appreciate recs Seizure, Fall, Bleeding, Affected side precautions Type and Screen ordered PT/OT/VOCAL MUSIC INSTRUCTOR AM lipids, HbA1c, CBC, BMP HOB elevated SBP < 180, DBP < 105 - IV labetalol Q15 min PRN (2) ALBIN (acute kidney injury): Plan: UA concentrated. Most likely pre-renal. IVF 1L NSS x1. Did order US KUB to eval for infarct. Discussed with US and utility of US would be minimal due to late stage renal disease and small caliber of renal arteries. If patient with continued ALBIN without obvious cause consider CT Monitor BMP - may worsen with IV contrast load (3) Alzheimer's disease, unspecified: Plan: Would resume home meds once confirmed - if patient passes dysphagia screen (4) Dementia: Plan: See above. (5) BPH w urinary obs/LUTS: Plan: Would resume home meds once confirmed - if patient passes dysphagia screen Plan Code status: DNR, DNI - daughter in [place] has advanced directive, nursing working on obtaining DVT ppx: chemo ppx contraindicated FENGI: 1L NSS, dysphagia screen/VOCAL MUSIC INSTRUCTOR ordered, NPO for now Dispo: ICU History of Present Illness Chief Complaint: right sided weakness and change in mental status Primary Care Provider: SONALI Burciaga 88 male with a PMHx of dementia and BPH presented with acute change in neurological status from [facility]. Right sided weakness of upper and lower extremities and facial droop. Unable to carry a conversation. Stroke alert was called and protocol followed. [facility]stroke consulted. Patient with interval improvement, but not back at baseline. Decision made to give TNKase. Neurological status continued to improve. Allergies Allergy/AdvReac Type Severity Reaction Status Date / Time diclofenac [From [facility]] Allergy Mild Rash Verified 03/15/24 22:58 Home Medications Medication Instructions Recorded Confirmed Type acetaminophen 325 mg tablet 650 mg PO Q4 PRN Fever Or Pain 03/15/24 03/15/24 History (Tylenol) acetaminophen 650 mg 650 mg PO BID 03/15/24 03/15/24 History tablet,extended release (Tylenol Arthritis Pain) atenolol 25 mg tablet 25 mg PO DAILY 03/15/24 03/15/24 History donepezil 5 mg tablet (Aricept) 5 mg PO DAILY 03/15/24 03/15/24 History duloxetine 30 mg capsule,delayed 30 mg PO DAILY 03/15/24 03/15/24 History release (Cymbalta) duloxetine 60 mg capsule,delayed 60 mg PO DAILY 03/15/24 03/15/24 History release famotidine 20 mg tablet 20 mg PO BID 03/15/24 03/15/24 History melatonin 1 mg tablet 2 mg PO HS 03/15/24 03/15/24 History memantine 10 mg tablet 10 mg PO BID 03/15/24 03/15/24 History multivitamin 1 tab PO DAILY 03/15/24 03/15/24 History polyethylene glycol 3350 17 gram 17 g PO .Q72HRS PRN Constipation 03/15/24 03/15/24 History oral powder packet (Miralax) propylene glycol 0.6 % eye drops 2 drp OPB BID 03/15/24 03/15/24 History (Systane Balance) tamsulosin 0.4 mg capsule 0.4 mg PO HS 03/15/24 03/15/24 History vitamins A,C,P-ylur-pvjggq 2,148 1 tab PO BID 03/15/24 03/15/24 History mcg-113 mg-45 mg-17.4 mg tablet (PreserVision AREDS) Past Med/Surg History Problem List (Updated 03/16/24 @ 01:53 by J Carlos Craig MD) Stroke (Acute) ALBIN (acute kidney injury) Stroke aborted by administration of thrombolytic agent Alzheimer's disease, unspecified Tremor Gait disturbance Hypertension Kidney stones Hx of and passed on own No current issues Macular degeneration Right eye- follows routinely with eye doctor Insomnia Chronic cough (Chronic) Sacral ulcer Chronic knee pain after total replacement of left knee joint (Chronic) Fatigue (Chronic) Nocturia (Chronic) Urinary incontinence History of nephrolithiasis BPH w urinary obs/LUTS Hematoma of frontal scalp Dermatitis Falls CHI (closed head injury) (Acute) Altered mental status (Acute) Small vessel disease, cerebrovascular Dementia Mild reactive airways disease Vitamin D deficiency Stenosis, spinal, lumbar Spondylolisthesis at L4-L5 level Paroxysmal atrial fibrillation Medical History Posterior vitreous detachment Glaucoma Dementia Vitamin D deficiency Paroxysmal atrial fibrillation Frequent falls 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 Spondylolisthesis at L4-L5 level Macular degeneration Kidney stones Hypertension Stenosis, spinal, lumbar Surgical History History of total left knee replacement Status post revision of total replacement of left knee (~12/2020) S/P cataract surgery Hx of total knee replacement Family History Father Myocardial infarction Mother Myocardial infarction Stroke Brother Melanoma Cancer Other No family history of adverse response to anesthesia No family history of bleeding disorder Denies family history of Ovarian cancer Prostate cancer Breast cancer Colorectal cancer Social History Smoking Status: Never smoker Second Hand Exposure: No; Do You Dip or Chew Tobacco: No; Hx Alcohol Use: No Hx Substance Use: No Preferred Language: Yakut Communication Ability: Effective Visual Impairment: No Limitations Hearing Ability: Normal Account Support Analyst Required: No Beliefs That Will Affect Care: None marital status: Single Current Living Situation: Shelter current occupational status: retired Feels Safe at Home: Yes Childhood Exposure to Second-Hand Smoke: No Dental Care, Regularly: Yes Physical Activity Frequency: 1-2 Times per Week Seatbelt Use: always Sunscreen Use: No Assistive Devices: Glasses and Walker Results & Data Results & Data Vital Signs (Past 12 Hours) Vital Signs Temp Pulse Pulse Resp BP BP Pulse Ox 03/15/24 22:36 36.4 C L 58 L 18 167/84 H 965 H 03/15/24 22:22 36.5 C 70 20 179/98 H 98 03/15/24 22:07 68 22 184/102 H 97 03/15/24 22:06 36.4 C L 03/15/24 21:56 03/15/24 21:52 67 22 176/109 H 97 03/15/24 21:38 63 16 161/80 H 96 03/15/24 21:36 67 15 97 03/15/24 21:27 78 22 96 03/15/24 21:12 63 18 92 03/15/24 21:05 166/77 H 03/15/24 21:03 61 16 95 03/15/24 21:00 62 22 95 03/15/24 20:53 148/80 H 03/15/24 20:49 63 03/15/24 20:36 36.6 C 72 16 151/101 H 95 O2 Del Method 03/15/24 22:36 Room Air 03/15/24 22:22 Room Air 03/15/24 22:07 Room Air 03/15/24 22:06 03/15/24 21:56 Room Air 03/15/24 21:52 Room Air 03/15/24 21:38 Room Air 03/15/24 21:36 Room Air 03/15/24 21:27 Room Air 03/15/24 21:12 Room Air 03/15/24 21:05 03/15/24 21:03 Room Air 03/15/24 21:00 Room Air 03/15/24 20:53 03/15/24 20:49 03/15/24 20:36 Room Air Code Status & VTE Plan VTE Prophylaxis Plan VTE Prophylaxis will be ordered: No Reason for no VTE drug order: Contraindicated Critical Care Time 45 minutes Supervising Physician Co-Signing Physician Notes Attending addendum: I have physically seen this patient, have supervised the medical residents activities, and agree with the H&P unless as otherwise noted. Assessment and Plan: Left posterior cerebral artery territory infarction/administration of TNK in the ED- The patient will be admitted to the ICU for post TNK protocol, serial cardiac enzymes, serial EKG's, cardiac rhythm monitoring and a 2-D echocardiogram with Dopplers. The patient had presented with facial droop, right upper extremity right lower extremity weakness, which were improving, but per nursing, resolved shortly after TNK given CT scan head and brain without contrast, CTA head with contrast notes abrupt cut off of the left posterior cerebral artery near its origin, suggestive of age- indeterminate left INTERNATIONAL NURSE territory infarct CTA neck with normal cervical arteries Order MRI brain without contrast Consult PT/OT/speech and neurology Seizure precautions Blood pressure per protocol if systolic blood pressure less than 180, diastolic blood pressure less than 105. Labetalol IV per protocol ordered Order fasting lipid panel, hemoglobin A1c, CBC and renal function panel for the a.m. Acute kidney injury- Creatinine 1.96, with base 1.35- Give 1 L normal saline bolus in the ED, and then made maintenance fluids as noted Would be concerned regarding possibility of embolism to the kidneys causing decreased functioning. Therefore, will order ultrasound for initial evaluation SDAT- When able to will resume usual medications of donepezil, duloxetine and memantine CODE STATUS: DNR/DNI Resident Activity Tracking Resident Involvement: Resident Care Provided Care Provided: Adult Hospital Medicine
[2024-03-15] MEDS: ATORVASTATIN 40 MG TAB PO STA (22:49)
[2024-03-15] MEDS: SODIUM CHLORIDE 0.9% 1,000 ML IV ONE (22:49)
--- NOTE | 2024-03-15 23:38 | Critical Care Consultation ---
Date of Consultation March 15, 2024 Assessment & Plan (1) Stroke: Impression: 88-year-old male with history of dementia/Alzheimer's, paroxysmal A- fib who presents to the ICU following strokelike symptoms with right-sided weakness and right facial droop. Patient underwent CTA head which showed abrupt cut off of the left posterior cerebral artery near origin and could not rule out SILVER SERVICE WAITER territory infarct although CT head unremarkable. Patient received TNKase and is now admitted to ICU for 24-hour post TNKase monitoring. Neuro - Acute CVA?Patient with right-sided weakness and right-sided facial droop. Received TNKase at 2143. - CT head with no acute intracranial process - CTA head and neck with abrupt cut off of L SILVER SERVICE WAITER near origin. - Symptoms and consistent with posterior stroke. Neurology did review and no indication for thrombectomy, as patient's symptoms resolved following TNKase administration. - Admitted to ICU for 24-hour monitoring post TNKase administration protocol - Follow-up MRI, TTE - Follow Neurology recommendations for ASA, Plavix Alzheimer's dementiaappears to be mildly confused at baseline but pleasant And cooperative on exam. Continue Aricept, memantine Cardiac - History of paroxysmal A-fibcurrently on atenolol, does not appear to be anticoagulated - Currently sinus rhythm on monitor. Continuous monitoring on telemetry Respiratory - No history of pulmonary disease. Currently maintaining oxygen saturations on room air. Continuous monitoring on pulse ox GI - N.p.o. RENAL/LYTES - ALBIN Creatinine 1.96 with previous baseline at 1.44. Unsure of etiology at this time. Will continue with fluid resuscitation, and patient did receive 1 L crystalloid bolus following contrast. Monitor routine BMPs and replete electrolytes as indicated. Avoid nephrotoxins and renally adjust medications. - BPHcontinue tamsulosin ENDO - No history of diabetes or thyroid disease. ICU hyperglycemic protocol HEME - H&H stable, monitor routine CBCs. Monitor for bleeding following TNKase administration ID - No indication for infectious process at this time LINES/IV ACCESS - Peripheral IVs DVT PROPHYLAXIS - SCDs, hold anticoagulation for now following TNKase administration Thank you for allowing us to participate in the care of this patient. Please refer to my attending physician's documentation for any further recommendations. (2) ALBIN (acute kidney injury): (3) Alzheimer's disease, unspecified: (4) Paroxysmal atrial fibrillation: History of Present Illness Attending Physician: Carlos Medina MD History of Present Illness Patient is a 88-year-old male with past medical history of dementia, Proximal A- fib, Macular degeneration, BPH, and resident of [facility] who presented to the emergency department earlier this evening with right-sided weakness and facial droop with altered mental status. CT head was negative for acute intracranial process. CTA head and neck did show abrupt cut off of the left posterior cerebral artery near its origin, with findings indeterminate but left SILVER SERVICE WAITER territory infarct cannot be excluded despite lack of edema on noncontrast CT. Patient was evaluated by [facility] telemetry neurologist who recommended administration of TNKase, and improvement in neurological status followed following administration, with neurological exam appearing to be that of baseline. Patient admitted to ICU for further management at this time following post 24-hour TNKase protocol. On arrival to the ICU the patient is alert and oriented and does not appear to have any neurological Deficits other than that the patient is pleasantly confused, which seems to be the patient's baseline neurological status based on his history of Alzheimer's dementia. He is no longer having unilateral weakness or facial droop and speech is clear without dysarthria. He is able to answer all questions appropriately although he is confused on location and date/time. He denies any headache, dizziness, cough or congestion, sore throat, changes in vision, weakness, numbness, difficulty swallowing. He denies chest pain or palpitations, shortness of breath, abdominal pain, nausea or vomiting or diarrh ea, swelling in hands or feet. Patient remain in ICU for further management at this time. Allergies Allergy/AdvReac Type Severity Reaction Status Date / Time diclofenac [From Voltaren] Allergy Mild Rash Verified 03/15/24 22:58 Home Medications Medication Instructions Recorded Confirmed Type acetaminophen 325 mg tablet 650 mg PO Q4 PRN Fever Or Pain 03/15/24 03/15/24 History (Tylenol) acetaminophen 650 mg 650 mg PO BID 03/15/24 03/15/24 History tablet,extended release (Tylenol Arthritis Pain) atenolol 25 mg tablet 25 mg PO DAILY 03/15/24 03/15/24 History donepezil 5 mg tablet (Aricept) 5 mg PO DAILY 03/15/24 03/15/24 History duloxetine 30 mg capsule,delayed 30 mg PO DAILY 03/15/24 03/15/24 History release (Cymbalta) duloxetine 60 mg capsule,delayed 60 mg PO DAILY 03/15/24 03/15/24 History release famotidine 20 mg tablet 20 mg PO BID 03/15/24 03/15/24 History melatonin 1 mg tablet 2 mg PO HS 03/15/24 03/15/24 History memantine 10 mg tablet 10 mg PO BID 03/15/24 03/15/24 History multivitamin 1 tab PO DAILY 03/15/24 03/15/24 History polyethylene glycol 3350 17 gram 17 g PO .Q72HRS PRN Constipation 03/15/24 03/15/24 History oral powder packet (Miralax) propylene glycol 0.6 % eye drops 2 drp OPB BID 03/15/24 03/15/24 History (Systane Balance) tamsulosin 0.4 mg capsule 0.4 mg PO HS 03/15/24 03/15/24 History vitamins A,C,E-uspd-xexpxd 2,148 1 tab PO BID 03/15/24 03/15/24 History mcg-113 mg-45 mg-17.4 mg tablet (PreserVision AREDS) Patient History Medical History Posterior vitreous detachment Glaucoma Dementia Vitamin D deficiency Paroxysmal atrial fibrillation Frequent falls 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 Spondylolisthesis at L4-L5 level Macular degeneration Kidney stones Hypertension Stenosis, spinal, lumbar Surgical History History of total left knee replacement Status post revision of total replacement of left knee (~12/2020) S/P cataract surgery Hx of total knee replacement Family History Father Myocardial infarction Mother Myocardial infarction Stroke Brother Melanoma Cancer Other No family history of adverse response to anesthesia No family history of bleeding disorder Denies family history of Ovarian cancer Prostate cancer Breast cancer Colorectal cancer Social History Smoking Status: Never smoker Second Hand Exposure: No; Do You Dip or Chew Tobacco: No; Hx Alcohol Use: No Hx Substance Use: No Preferred Language: Yi Communication Ability: Effective Visual Impairment: No Limitations Hearing Ability: Normal Roll Contour Grinder Required: No Beliefs That Will Affect Care: None marital status: Single Current Living Situation: Senior Care current occupational status: retired Feels Safe at Home: Yes Childhood Exposure to Second-Hand Smoke: No Dental Care, Regularly: Yes Physical Activity Frequency: 1-2 Times per Week Seatbelt Use: always Sunscreen Use: No Assistive Devices: Glasses and Walker Review of Systems Review of Systems: All systems reviewed & are unremarkable except as noted in HPI & below Physical Exam Constitutional: cooperative and comfortable Eyes: PERRL, conjunctivae normal, anicteric sclerae ENMT: external ear and nose normal, oropharynx normal Neck: trachea midline, no thyromegaly Respiratory: normal respiratory effort, lungs clear to auscultation Cardiovascular: RRR, no murmur, no edema Heart Sounds: normal S1 and normal S2; no murmur Extremities: no edema Gastrointestinal (Abdomen): normal bowel sounds, soft, nontender, no hepatosplenomegaly Musculoskeletal: no cyanosis or clubbing, extremities motor strength 5/5 Skin: no rashes, warm and dry Neurologic: PERRL, EOMI, accommodation nl, no face palsy, no dysarthria Psychiatric: Orientation: oriented to person and cooperative; + not oriented to place and + not oriented to time Results & Data Results & Data Vital Signs (Past 12 Hours) Vital Signs Temp Pulse Pulse Resp BP BP Pulse Ox 03/15/24 23:28 03/15/24 23:05 58 L 20 195/112 H 96 03/15/24 22:51 36.6 C 58 L 18 188/117 H 96 03/15/24 22:36 36.4 C L 58 L 18 167/84 H 965 H 03/15/24 22:22 36.5 C 70 20 179/98 H 98 03/15/24 22:07 68 22 184/102 H 97 03/15/24 22:06 36.4 C L 03/15/24 21:56 03/15/24 21:52 67 22 176/109 H 97 03/15/24 21:50 72 18 176/109 H 95 03/15/24 21:45 78 21 166/95 H 93 03/15/24 21:38 63 16 161/80 H 96 03/15/24 21:36 67 15 97 03/15/24 21:27 78 22 96 03/15/24 21:12 63 18 92 03/15/24 21:05 166/77 H 03/15/24 21:03 61 16 95 03/15/24 21:00 62 22 95 03/15/24 20:53 148/80 H 03/15/24 20:49 63 03/15/24 20:36 36.6 C 72 16 151/101 H 95 O2 Del Method 03/15/24 23:28 Room Air 03/15/24 23:05 Room Air 03/15/24 22:51 Room Air 03/15/24 22:36 Room Air 03/15/24 22:22 Room Air 03/15/24 22:07 Room Air 03/15/24 22:06 03/15/24 21:56 Room Air 03/15/24 21:52 Room Air 03/15/24 21:50 Room Air 03/15/24 21:45 Room Air 03/15/24 21:38 Room Air 03/15/24 21:36 Room Air 03/15/24 21:27 Room Air 03/15/24 21:12 Room Air 03/15/24 21:05 03/15/24 21:03 Room Air 03/15/24 21:00 Room Air 03/15/24 20:53 03/15/24 20:49 03/15/24 20:36 Room Air Coding Level of Care Code 83226 IN/OBS CONSULT LVL 3,45M Diagnoses Stroke I63.9 ALBIN (acute kidney injury) N17.9 Alzheimer's disease, unspecified G30.9; F02.80 Paroxysmal atrial fibrillation I48.0 Time Spent (min) 45
[2024-03-15] MEDS ORDERED: POLYETHYLENE (MIRALAX) 17 GM PACK PO PRN (23:57)
[2024-03-15] MEDS ORDERED: PHARMACIST DISCHARGE MED REC CONSULT PRN (23:57)
[2024-03-16] MEDS: PLASMA-LYTE A 1,000 ML IV SCH (02:09)
[2024-03-16 04:47] LABS: Basophils # (auto) 0.04 K/uL (0.00-0.20); Basophils % (auto) 0.4 %; Eosinophils # (auto) 0.29 K/uL (0.00-0.50); Eosinophils % (auto) 3.2 %; Hematocrit (blood only) 37.6 % (42.0-52.0); Hemoglobin 12.3 g/dl (14.0-18.0); Immature Granulocytes # (auto) 0.03 K/uL (0.01-0.20); Immature Granulocytes % (auto) 0.3 %; Lymphocytes # (auto) 1.28 K/uL (1.20-3.40); Mean Corpuscular Hemoglobin 31.1 pg (25.0-34.0); Mean Corpuscular Hgb Conc 32.7 g/dL (32.0-36.0); Mean Corpuscular Volume 94.9 fL (80.0-100.0); Mean Platelet Volume 10.7 fL (9.4-12.4); Monocytes % (auto) 8.8 %; Neutrophils % (auto) 73.3 %; Platelet Count 146 K/uL (130-400); RDW Coefficient of Variation 12.8 % (11.5-14.5); RDW Standard Deviation 44.6 fL (36.4-46.3); Red Blood Count 3.96 M/uL (4.70-6.10); White Blood Count 9.14 K/ul (4.8-10.8)
[2024-03-16 05:00] LABS: Chol HDL Ratio 3.2 (0-5)
--- NOTE | 2024-03-16 06:14 | Billing Data ---
Date of Service March 16, 2024 Coding Level of Care Code 76495 CRITICAL CARE
[2024-03-16] MEDS: LABETALOL HCL IV 5 MG/ML 20ML IV PRN (07:26)
[2024-03-16 07:53] LABS: Albumin Globulin Ratio 1.5 (0.9-2); Albumin Level 3.4 gm/dl (3.4-5.0); BUN Creatinine Ratio 27.1 (10-20); Bilirubin,Total 0.4 mg/dl (0.2-1.0); Calcium 8.3 mg/dl (8.6-10.3); Creatinine Clr Calc Pharmacy 43.2 ml/min; Est GFR (African American) 50.2 ml/min; Est GFR (Non-African American) 43.4 ml/min; Globulin 2.3 gm/dl (2.5-4.0); Total Protein 5.7 gm/dl (6.0-8.3)
[2024-03-16 08:06] LABS: Hematocrit (blood only) 37.9 % (42.0-52.0); Hemoglobin 12.4 g/dl (14.0-18.0)
[2024-03-16 08:06] LABS: Estimated Average Glucose 114 mg/dl; Hemoglobin A1C 5.6 % (4.5-5.6)
[2024-03-16] MEDS: ICU Protocol for HYPERglycemia SCH (08:49)
[2024-03-16] MEDS: DULoxetine HCL 60 MG CAP PO SCH (08:52)
[2024-03-16] MEDS: DONEPEZIL HCL 5 MG TAB PO SCH (08:52)
[2024-03-16] MEDS: DULoxetine HCL 30 MG CAP PO SCH (08:52)
[2024-03-16] MEDS: MEMANTINE HCL 10 MG TAB PO SCH (08:53)
[2024-03-16] MEDS: FAMOTIDINE 20 MG TAB PO SCH (08:53)
--- NOTE | 2024-03-16 08:58 | Neurology Consultation ---
Date of Consultation March 16, 2024 Assessment & Plan (1) Stroke: History of Present Illness Attending Physician: Lucy Lugo MD History of Present Illness S: pt this morning alert and following command well. no rt side weakness complaint. pt well known to neurology (pt of Dr. chavez and farrukh case). CTA with likely old left ELECTRIC METER SETTER flow block). no sign of bleeding s/p TNKase. Admission HPI:Patient is a 88-year-old male with past medical history of dementia, Proximal A-fib, Macular degeneration, BPH, and resident of [facility] who presented to the emergency department earlier this evening with right-sided weakness and facial droop with altered mental status. CT head was negative for acute intracranial process. CTA head and neck did show abrupt cut off of the left posterior cerebral artery near its origin, with findings indeterminate but left ELECTRIC METER SETTER territory infarct cannot be excluded despite lack of edema on noncontrast CT. Patient was evaluated by [facility] telemetry neurologist who recommended administration of TNKase, and improvement in neurological status followed following administration, with neurological exam appearing to be that of baseline. Patient admitted to ICU for further management at this time following post 24-hour TNKase protocol. On arrival to the ICU the patient is alert and oriented and does not appear to have any neurological Deficits other than that the patient is pleasantly confused, which seems to be the patient's baseline neurological status based on his history of Alzheimer's dementia. He is no longer having unilateral weakness or facial droop and speech is clear without dysarthria. He is able to answer all questions appropriately although he is confused on location and date/time. He denies any headache, dizziness, cough or congestion, sore throat, changes in vision, weakness, numbness, difficulty swallowing. He denies chest pain or palpitations, shortness of breath, abdominal pain, nausea or vomiting or stewart rrhea, swelling in hands or feet. Patient remain in ICU for further management at this time. Allergies Allergy/AdvReac Type Severity Reaction Status Date / Time diclofenac [From Voltaren] Allergy Mild Rash Verified 03/15/24 22:58 Home Medications Medication Instructions Recorded Confirmed Type acetaminophen 325 mg tablet 650 mg PO Q4 PRN Fever Or Pain 03/15/24 03/15/24 History (Tylenol) acetaminophen 650 mg 650 mg PO BID 03/15/24 03/15/24 History tablet,extended release (Tylenol Arthritis Pain) atenolol 25 mg tablet 25 mg PO DAILY 03/15/24 03/15/24 History donepezil 5 mg tablet (Aricept) 5 mg PO DAILY 03/15/24 03/15/24 History duloxetine 30 mg capsule,delayed 30 mg PO DAILY 03/15/24 03/15/24 History release (Cymbalta) duloxetine 60 mg capsule,delayed 60 mg PO DAILY 03/15/24 03/15/24 History release famotidine 20 mg tablet 20 mg PO BID 03/15/24 03/15/24 History melatonin 1 mg tablet 2 mg PO HS 03/15/24 03/15/24 History memantine 10 mg tablet 10 mg PO BID 03/15/24 03/15/24 History multivitamin 1 tab PO DAILY 03/15/24 03/15/24 History polyethylene glycol 3350 17 gram 17 g PO .Q72HRS PRN Constipation 03/15/24 03/15/24 History oral powder packet (Miralax) propylene glycol 0.6 % eye drops 2 drp OPB BID 03/15/24 03/15/24 History (Systane Balance) tamsulosin 0.4 mg capsule 0.4 mg PO HS 03/15/24 03/15/24 History vitamins A,C,A-otvs-radsim 2,148 1 tab PO BID 03/15/24 03/15/24 History mcg-113 mg-45 mg-17.4 mg tablet (PreserVision AREDS) Patient History Medical History Posterior vitreous detachment Glaucoma Dementia Vitamin D deficiency Paroxysmal atrial fibrillation Frequent falls 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 Spondylolisthesis at L4-L5 level Macular degeneration Kidney stones Hypertension Stenosis, spinal, lumbar Surgical History History of total left knee replacement Status post revision of total replacement of left knee (~12/2020) S/P cataract surgery Hx of total knee replacement Family History Father Myocardial infarction Mother Myocardial infarction Stroke Brother Melanoma Cancer Other No family history of adverse response to anesthesia No family history of bleeding disorder Denies family history of Ovarian cancer Prostate cancer Breast cancer Colorectal cancer Social History Smoking Status: Never smoker Second Hand Exposure: No; Do You Dip or Chew Tobacco: No; Hx Alcohol Use: No Hx Substance Use: No Preferred Language: Polish Communication Ability: Effective Visual Impairment: No Limitations Hearing Ability: Normal Steam Bone Press Tender Required: No Beliefs That Will Affect Care: None marital status: Single Current Living Situation: Jail current occupational status: retired Feels Safe at Home: Yes Childhood Exposure to Second-Hand Smoke: No Dental Care, Regularly: Yes Physical Activity Frequency: 1-2 Times per Week Seatbelt Use: always Sunscreen Use: No Assistive Devices: Glasses and Walker Review of Systems Review of Systems: All systems reviewed & are unremarkable except as noted in Subjective Constitutional: as per Subjective / HPI Eyes: as per Subjective / HPI Ear, Nose, Mouth, Throat: as per Subjective / HPI Respiratory: as per Subjective / HPI Cardiovascular: as per Subjective / HPI Gastrointestinal: as per Subjective / HPI Musculoskeletal: as per Subjective / HPI Integumentary: as per Subjective / HPI Neurologic: as per Subjective / HPI Psychiatric: as per Subjective / HPI Endocrine: as per Subjective / HPI Hematologic / Lymphatic: as per Subjective / HPI Allergy / Immunological: as per Subjective / HPI Exam (Neuro) Physical Exam: HEENT: normocephalic Neuro: Mental: Alert, follows command well. not sure of year or his age. knew his name. not sure of his family situation, fluent speech, , no apraxia, no neglect. CN: PERRL, Full EOM, symmetric face, midline T/U/P, 5/5 SCM/traps. Motor: No abnormal movements, normal tone and bulk, 5/5 t/o bilaterally t/o Coord: intact grossly upper limbs. DTR: 2+ sym b/l Impression: 88 yo male, DNI/DNR, with resolved rt side hemiparesis, s/p TNKase last night in setting of known vacular dementia, ?paroxysmal atrial fib, ALBIN. Pt overall doing well clinically without sign of bleed. Recommendations: 1. Standard stroke work up as planned an d post TNKase care as now. 2. his prior report of paroxysmal atrial fib is complex as cardiology thought in the past he actually has atrial tachycardia and not atrial fib. he did have event monitor done in the past and no clear atrial fib. He could likely still have atrial fib. But, given his age, recurrent fall hx and risk, I think it is reasonable to tx with antiplatelet therapy rather than OAC. after repeat CT head negative (24hrs from TNKase administration), he can start DAPT for 90 days and monotherapy after that. 3. Images: MRI brain (stroke protocol), TTE with bubble 4. Permissive Hypertension for next 24-4 8 hrs. Keep SBP goal range less than 220. Avoid hypotension. Do not stop beta-latonya if on it. 6. Long-term SBP goal less than 140. 7. Plenty of hydration including IV flui d if possible (use isotonic solution) next 1-2 days. Avoid hypovolemia and hypotension. 8. Initiate DVT prevention therapy. 9. Avoid hypoglycemia, serum glucose goa l during hospitalization: 140-180. 10. Long-term HgA1c goal less than 7. 11. Start statin if not on it and no abs olute contraindication, long-term LDL goal less than 70. 12. Head of bed up 30 degrees if possibl e. 14. Telemetry monitoring. 15. Fall precaution and aspiration preca ution. 16. Consult physical and occupational th erapy evaluation. Chart reviewed I have spent more than 50% educating patient about potential diagnosis and neurological evaluation and coordinating care with patient's treatment team. Total time spent (including chart review and coordination of care): 60 min (this includes chart review). Results & Data Vital Signs (Past 12 Hours) Vital Signs Temp Pulse Pulse Resp BP BP Pulse Ox 03/16/24 07:26 71 194/97 H 03/16/24 06:37 36.5 C 73 17 179/88 H 91 03/16/24 05:37 36.5 C 65 15 180/96 H 94 03/16/24 05:07 36.4 C L 69 21 184/90 H 96 03/16/24 04:37 36.4 C L 67 14 159/81 H 95 03/16/24 04:18 70 18 94 03/16/24 04:09 67 35 H 95 03/16/24 04:07 36.5 C 62 17 155/83 H 96 03/16/24 03:54 90 03/16/24 03:46 170/111 H 03/16/24 03:45 22 80 L 03/16/24 03:37 36.6 C 67 18 176/97 H 93 03/16/24 03:24 60 15 03/16/24 03:13 183/105 H 03/16/24 03:12 63 18 03/16/24 03:09 78 19 96 03/16/24 03:07 36.6 C 65 18 183/105 H 94 03/16/24 02:44 182/98 H 03/16/24 02:42 76 20 97 03/16/24 02:37 36.6 C 65 15 182/98 H 95 03/16/24 02:30 69 15 96 03/16/24 02:29 167/99 H 03/16/24 02:27 63 18 95 03/16/24 02:21 59 L 18 96 03/16/24 02:15 67 18 97 03/16/24 02:14 173/133 H 03/16/24 02:09 56 L 15 97 03/16/24 02:07 36.6 C 72 14 173/133 H 97 03/16/24 02:00 60 15 98 03/16/24 01:51 66 19 96 03/16/24 01:44 182/92 H 03/16/24 01:42 58 L 17 97 03/16/24 01:37 36.6 C 65 16 182/65 H 94 03/16/24 01:33 58 L 16 96 03/16/24 01:12 58 L 21 96 03/16/24 01:07 36.5 C 69 15 174/97 H 98 03/16/24 00:37 36.6 C 57 L 18 189/96 H 97 03/16/24 00:36 56 L 15 96 03/16/24 00:21 60 16 96 03/16/24 00:18 57 L 17 100 03/16/24 00:07 36.6 C 68 18 190/98 H 92 03/16/24 00:00 65 20 96 03/15/24 23:57 56 L 03/15/24 23:51 171/86 H 03/15/24 23:48 60 17 98 03/15/24 23:45 56 L 17 97 03/15/24 23:37 36.6 C 64 18 156/78 H 96 03/15/24 23:36 156/78 H 03/15/24 23:33 58 L 15 97 03/15/24 23:28 03/15/24 23:22 36.6 C 61 18 156/78 H 97 03/15/24 23:10 36.6 C 61 18 156/78 H 97 03/15/24 23:06 195/112 H 03/15/24 23:05 58 L 20 195/112 H 96 03/15/24 22:54 63 23 95 03/15/24 22:51 36.6 C 58 L 18 188/117 H 96 03/15/24 22:47 188/117 H 03/15/24 22:36 36.4 C L 58 L 18 167/84 H 965 H 03/15/24 22:30 59 L 17 96 03/15/24 22:22 36.5 C 70 20 179/98 H 98 03/15/24 22:21 179/98 H 03/15/24 22:21 62 20 99 03/15/24 22:18 67 19 96 03/15/24 22:09 184/102 H 03/15/24 22:09 63 18 98 03/15/24 22:07 68 22 184/102 H 97 03/15/24 22:06 36.4 C L 03/15/24 22:03 59 L 19 03/15/24 22:01 181/107 H 03/15/24 21:56 03/15/24 21:52 67 22 176/109 H 97 03/15/24 21:50 72 18 176/109 H 95 03/15/24 21:45 78 21 166/95 H 93 03/15/24 21:38 63 16 161/80 H 96 03/15/24 21:36 67 15 97 03/15/24 21:27 78 22 96 03/15/24 21:12 63 18 92 03/15/24 21:05 166/77 H 03/15/24 21:03 61 16 95 03/15/24 21:00 62 22 95 03/15/24 20:53 148/80 H 03/15/24 20:49 63 O2 Del Method 03/16/24 07:26 03/16/24 06:37 Room Air 03/16/24 05:37 Room Air 03/16/24 05:07 Room Air 03/16/24 04:37 Room Air 03/16/24 04:18 03/16/24 04:09 03/16/24 04:07 Room Air 03/16/24 03:54 03/16/24 03:46 03/16/24 03:45 03/16/24 03:37 Room Air 03/16/24 03:24 03/16/24 03:13 03/16/24 03:12 03/16/24 03:09 03/16/24 03:07 Room Air 03/16/24 02:44 03/16/24 02:42 03/16/24 02:37 Room Air 03/16/24 02:30 03/16/24 02:29 03/16/24 02:27 03/16/24 02:21 03/16/24 02:15 03/16/24 02:14 03/16/24 02:09 03/16/24 02:07 Room Air 03/16/24 02:00 03/16/24 01:51 03/16/24 01:44 03/16/24 01:42 03/16/24 01:37 Room Air 03/16/24 01:33 03/16/24 01:12 03/16/24 01:07 Room Air 03/16/24 00:37 Room Air 03/16/24 00:36 03/16/24 00:21 03/16/24 00:18 03/16/24 00:07 Room Air 03/16/24 00:00 03/15/24 23:57 03/15/24 23:51 03/15/24 23:48 03/15/24 23:45 03/15/24 23:37 Room Air 03/15/24 23:36 03/15/24 23:33 03/15/24 23:28 Room Air 03/15/24 23:22 Room Air 03/15/24 23:10 Room Air 03/15/24 23:06 03/15/24 23:05 Room Air 03/15/24 22:54 03/15/24 22:51 Room Air 03/15/24 22:47 03/15/24 22:36 Room Air 03/15/24 22:30 03/15/24 22:22 Room Air 03/15/24 22:21 03/15/24 22:21 03/15/24 22:18 03/15/24 22:09 03/15/24 22:09 03/15/24 22:07 Room Air 03/15/24 22:06 03/15/24 22:03 03/15/24 22:01 03/15/24 21:56 Room Air 03/15/24 21:52 Room Air 03/15/24 21:50 Room Air 03/15/24 21:45 Room Air 03/15/24 21:38 Room Air 03/15/24 21:36 Room Air 03/15/24 21:27 Room Air 03/15/24 21:12 Room Air 03/15/24 21:05 03/15/24 21:03 Room Air 03/15/24 21:00 Room Air 03/15/24 20:53 03/15/24 20:49 PG Care Time/CCT Total # of Minutes Spent Total Time Spent with Patient: Total time spent is greater than 50% in coordination of care (as documented) at patient's floor/unit and/or counseling patient: Coding Level of Care Code 12619 IN/OBS CONSULT LVL 4,60M Diagnoses Cerebrovascular accident (CVA) due to other mechanism I63.89 CVA mechanism: other (1) Stroke CVA mechanism: other Qualified Code(s): I63.89 - Other cerebral infarction
--- NOTE | 2024-03-16 09:09 | Urology Consultation ---
Date of Consultation March 16, 2024 Assessment & Plan (1) BPH w urinary obs/LUTS: (2) Morales catheter in place: 88 yo/M admitted for stroke and 24 hour monitoring after TNKase administration Urology is consulted for urethral bleeding after traumatic removal of Morales catheter 18F Morales catheter was replaced by nursing and is patent and draining with pink urine No active bleeding around urethral meatus at present Recommend maintain Morales catheter for about 1 week depending on clinical course Okay to gently hand irrigate catheter if indicated Can do voiding trial prior to discharge or arrange with urology office after discharge depending on timing will sign off, contact our service with any additional questions or concerns History of Present Illness Attending Physician: Lucy Lugo MD History of Present Illness This is an 88-year-old male who presented to the emergency department via EMS on 03/15/2024 as a stroke alert. Patient reportedly was doing activities at his facility when he began having right-sided facial droop as well as weakness of the right upper and lower extremity. Workup in the ED included CTA of the head which showed abrupt cut off of the left posterior cerebral artery. He was given TNKase in the emergency department. He was admitted to the medicine service for 24 hour post TNKase monitoring. Urology is consulted for urethral bleeding. Patient had Morales catheter placed in the emergency department. Patient traumatically self removed Morales catheter. Nursing replaced Morales catheter per urology instructions. Labs today-creatinine 1.44, WBC 9.14, hemoglobin 12.4 Patient seen and examined at bedside in the ICU. He is resting in bed, no apparent distress. He arouses to his name. He answers simple questions, but does not provide meaningful history. Reports knee pain, but otherwise denies pain. Morales patent and draining light pink urine. No fever or chills. Allergies Allergy/AdvReac Type Severity Reaction Status Date / Time diclofenac [From Voltaren] Allergy Mild Rash Verified 03/15/24 22:58 Home Medications Medication Instructions Recorded Confirmed Type acetaminophen 325 mg tablet 650 mg PO Q4 PRN Fever Or Pain 03/15/24 03/15/24 History (Tylenol) acetaminophen 650 mg 650 mg PO BID 03/15/24 03/15/24 History tablet,extended release (Tylenol Arthritis Pain) atenolol 25 mg tablet 25 mg PO DAILY 03/15/24 03/15/24 History donepezil 5 mg tablet (Aricept) 5 mg PO DAILY 03/15/24 03/15/24 History duloxetine 30 mg capsule,delayed 30 mg PO DAILY 03/15/24 03/15/24 History release (Cymbalta) duloxetine 60 mg capsule,delayed 60 mg PO DAILY 03/15/24 03/15/24 History release famotidine 20 mg tablet 20 mg PO BID 03/15/24 03/15/24 History melatonin 1 mg tablet 2 mg PO HS 03/15/24 03/15/24 History memantine 10 mg tablet 10 mg PO BID 03/15/24 03/15/24 History multivitamin 1 tab PO DAILY 03/15/24 03/15/24 History polyethylene glycol 3350 17 gram 17 g PO .Q72HRS PRN Constipation 03/15/24 03/15/24 History oral powder packet (Miralax) propylene glycol 0.6 % eye drops 2 drp OPB BID 03/15/24 03/15/24 History (Systane Balance) tamsulosin 0.4 mg capsule 0.4 mg PO HS 03/15/24 03/15/24 History vitamins A,C,E-afsz-qtgpqk 2,148 1 tab PO BID 03/15/24 03/15/24 History mcg-113 mg-45 mg-17.4 mg tablet (PreserVision AREDS) Patient History Medical History Posterior vitreous detachment Glaucoma Frequent falls Surgical History History of total left knee replacement Status post revision of total replacement of left knee (~12/2020) S/P cataract surgery 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 Family History Father Myocardial infarction Mother Myocardial infarction Stroke Brother Melanoma Cancer Other No family history of adverse response to anesthesia No family history of bleeding disorder Denies family history of Ovarian cancer Prostate cancer Breast cancer Colorectal cancer Social History Smoking Status: Never smoker Second Hand Exposure: No; Do You Dip or Chew Tobacco: No; Hx Alcohol Use: No Hx Substance Use: No Preferred Language: Kiswahili Communication Ability: Effective Visual Impairment: No Limitations Hearing Ability: Normal Marine Superintendent Required: No Beliefs That Will Affect Care: None marital status: Single Current Living Situation: [facility] current occupational status: retired Feels Safe at Home: Yes Childhood Exposure to Second-Hand Smoke: No Dental Care, Regularly: Yes Physical Activity Frequency: 1-2 Times per Week Seatbelt Use: always Sunscreen Use: No Assistive Devices: Glasses and Walker Review of Systems Review of Systems: All systems reviewed & are unremarkable except as noted in HPI & below Physical Exam Constitutional: no acute distress Respiratory: normal respiratory effort; no respiratory distress and no labored breathing Cardiovascular: Rate/Rhythm: regular rate Gastrointestinal (Abdomen): Inspection/Auscultation: abdomen normal to inspection Musculoskeletal: Head/Neck/Chest: normocephalic Neurologic: moves all extremities and awake Psychiatric: Orientation: alert and oriented to person Genitourinary: Morales patent and draining pink urine. There is some dried blood at urethral meatus, but no active bleeding at present. Results & Data Vital Signs (Past 12 Hours) Vital Signs Temp Pulse Pulse Resp BP BP Pulse Ox 03/16/24 07:26 71 194/97 H 03/16/24 06:37 36.5 C 73 17 179/88 H 91 03/16/24 05:37 36.5 C 65 15 180/96 H 94 03/16/24 05:07 36.4 C L 69 21 184/90 H 96 03/16/24 04:37 36.4 C L 67 14 159/81 H 95 03/16/24 04:18 70 18 94 03/16/24 04:09 67 35 H 95 03/16/24 04:07 36.5 C 62 17 155/83 H 96 03/16/24 03:54 90 03/16/24 03:46 170/111 H 03/16/24 03:45 22 80 L 03/16/24 03:37 36.6 C 67 18 176/97 H 93 03/16/24 03:24 60 15 03/16/24 03:13 183/105 H 03/16/24 03:12 63 18 03/16/24 03:09 78 19 96 03/16/24 03:07 36.6 C 65 18 183/105 H 94 03/16/24 02:44 182/98 H 03/16/24 02:42 76 20 97 03/16/24 02:37 36.6 C 65 15 182/98 H 95 03/16/24 02:30 69 15 96 03/16/24 02:29 167/99 H 03/16/24 02:27 63 18 95 03/16/24 02:21 59 L 18 96 03/16/24 02:15 67 18 97 03/16/24 02:14 173/133 H 03/16/24 02:09 56 L 15 97 03/16/24 02:07 36.6 C 72 14 173/133 H 97 03/16/24 02:00 60 15 98 03/16/24 01:51 66 19 96 03/16/24 01:44 182/92 H 03/16/24 01:42 58 L 17 97 03/16/24 01:37 36.6 C 65 16 182/65 H 94 03/16/24 01:33 58 L 16 96 03/16/24 01:12 58 L 21 96 03/16/24 01:07 36.5 C 69 15 174/97 H 98 03/16/24 00:37 36.6 C 57 L 18 189/96 H 97 03/16/24 00:36 56 L 15 96 03/16/24 00:21 60 16 96 03/16/24 00:18 57 L 17 100 03/16/24 00:07 36.6 C 68 18 190/98 H 92 03/16/24 00:00 65 20 96 03/15/24 23:57 56 L 03/15/24 23:51 171/86 H 03/15/24 23:48 60 17 98 03/15/24 23:45 56 L 17 97 03/15/24 23:37 36.6 C 64 18 156/78 H 96 03/15/24 23:36 156/78 H 03/15/24 23:33 58 L 15 97 03/15/24 23:28 03/15/24 23:22 36.6 C 61 18 156/78 H 97 03/15/24 23:10 36.6 C 61 18 156/78 H 97 03/15/24 23:06 195/112 H 03/15/24 23:05 58 L 20 195/112 H 96 03/15/24 22:54 63 23 95 03/15/24 22:51 36.6 C 58 L 18 188/117 H 96 03/15/24 22:47 188/117 H 03/15/24 22:36 36.4 C L 58 L 18 167/84 H 965 H 03/15/24 22:30 59 L 17 96 03/15/24 22:22 36.5 C 70 20 179/98 H 98 03/15/24 22:21 179/98 H 03/15/24 22:21 62 20 99 03/15/24 22:18 67 19 96 03/15/24 22:09 184/102 H 03/15/24 22:09 63 18 98 03/15/24 22:07 68 22 184/102 H 97 03/15/24 22:06 36.4 C L 03/15/24 22:03 59 L 19 03/15/24 22:01 181/107 H 03/15/24 21:56 03/15/24 21:52 67 22 176/109 H 97 03/15/24 21:50 72 18 176/109 H 95 03/15/24 21:45 78 21 166/95 H 93 03/15/24 21:38 63 16 161/80 H 96 03/15/24 21:36 67 15 97 03/15/24 21:27 78 22 96 03/15/24 21:12 63 18 92 03/15/24 21:05 166/77 H 03/15/24 21:03 61 16 95 03/15/24 21:00 62 22 95 03/15/24 20:53 148/80 H 03/15/24 20:49 63 O2 Del Method 03/16/24 07:26 03/16/24 06:37 Room Air 03/16/24 05:37 Room Air 03/16/24 05:07 Room Air 03/16/24 04:37 Room Air 03/16/24 04:18 03/16/24 04:09 03/16/24 04:07 Room Air 03/16/24 03:54 03/16/24 03:46 03/16/24 03:45 03/16/24 03:37 Room Air 03/16/24 03:24 03/16/24 03:13 03/16/24 03:12 03/16/24 03:09 03/16/24 03:07 Room Air 03/16/24 02:44 03/16/24 02:42 03/16/24 02:37 Room Air 03/16/24 02:30 03/16/24 02:29 03/16/24 02:27 03/16/24 02:21 03/16/24 02:15 03/16/24 02:14 03/16/24 02:09 03/16/24 02:07 Room Air 03/16/24 02:00 03/16/24 01:51 03/16/24 01:44 03/16/24 01:42 03/16/24 01:37 Room Air 03/16/24 01:33 03/16/24 01:12 03/16/24 01:07 Room Air 03/16/24 00:37 Room Air 03/16/24 00:36 03/16/24 00:21 03/16/24 00:18 03/16/24 00:07 Room Air 03/16/24 00:00 03/15/24 23:57 03/15/24 23:51 03/15/24 23:48 03/15/24 23:45 03/15/24 23:37 Room Air 03/15/24 23:36 03/15/24 23:33 03/15/24 23:28 Room Air 03/15/24 23:22 Room Air 03/15/24 23:10 Room Air 03/15/24 23:06 03/15/24 23:05 Room Air 03/15/24 22:54 03/15/24 22:51 Room Air 03/15/24 22:47 03/15/24 22:36 Room Air 03/15/24 22:30 03/15/24 22:22 Room Air 03/15/24 22:21 03/15/24 22:21 03/15/24 22:18 03/15/24 22:09 03/15/24 22:09 03/15/24 22:07 Room Air 03/15/24 22:06 03/15/24 22:03 03/15/24 22:01 03/15/24 21:56 Room Air 03/15/24 21:52 Room Air 03/15/24 21:50 Room Air 03/15/24 21:45 Room Air 03/15/24 21:38 Room Air 03/15/24 21:36 Room Air 03/15/24 21:27 Room Air 03/15/24 21:12 Room Air 03/15/24 21:05 03/15/24 21:03 Room Air 03/15/24 21:00 Room Air 03/15/24 20:53 03/15/24 20:49 PG Care Time/CCT Total # of Minutes Spent Total Time Spent with Patient: Total time spent is greater than 50% in coordination of care (as documented) at patient's floor/unit and/or counseling patient: Coding Level of Care Code 34569 INT INP/OBS CARE 255MIN Diagnoses BPH w urinary obs/LUTS N40.1; N13.[address] Z97.8
--- NOTE | 2024-03-16 09:24 | Critical Care Progress Note ---
Date of Service March 16, 2024 Assessment & Plan (1) Stroke: Plan: Impression: 88-year-old male with history of dementia/Alzheimer's, paroxysmal A- fib who presents to the ICU following strokelike symptoms with right-sided weakness and right facial droop. Patient underwent CTA head which showed abrupt cut off of the left posterior cerebral artery near origin and could not rule out BURN [employer] territory infarct although CT head unremarkable. Patient received TNKase an d is now admitted to ICU for 24-hour post TNKase monitoring. Neuro - Acute CVA?Patient with right-sided weakness and right-sided facial droop. Received TNKase at 2143. -Reviewed neurology notes. -MRI results reviewed Alzheimer's dementiaappears to be mildly confused at baseline but pleasant And cooperative on exam. Continue Aricept, memantine Cardiac - History of paroxysmal A-fibcurrently on atenolol, does not appear to be anticoagulated - Currently sinus rhythm on monitor. Continuous monitoring on telemetry Respiratory - No history of pulmonary disease. Currently maintaining oxygen saturations on room air. Continuous monitoring on pulse ox GI - Carb consistent heart healthy diet RENAL/LYTES - ALBIN Creatinine improving - BPHcontinue tamsulosin -Self discontinued Morales x 2 -After Morales was removed the second time we have left it out will follow closely for acute urinary retention, urology also following ENDO - No history of diabetes or thyroid disease. ICU hyperglycemic protocol HEME - H&H stable, monitor routine CBCs. Monitor for bleeding following TNKase administration ID - No indication for infectious process at this time LINES/IV ACCESS - Peripheral IVs DVT PROPHYLAXIS - SCDs, hold anticoagulation for now following TNKase administration (2) ALBIN (acute kidney injury): (3) Alzheimer's disease, unspecified: (4) Paroxysmal atrial fibrillation: Admission and Anticipated Discharge Date Admission Date: March 15, 2024 Subjective Interviewed with daughter at bedside. Patient pleasant and redirectable with daughter. Physical Exam Physical Exam: General: Alert. nontoxic. Skin: Warm, dry, Head: Atraumatic Ears, nose, mouth and throat: airway patent Cardiovascular: Normal peripheral perfusion Respiratory: no respiratory distress Gastrointestinal: Non distended Musculoskeletal: No deformity Results & Data Results & Data Vital Signs (Past 12 Hours) Vital Signs Temp Pulse Pulse Resp BP BP Pulse Ox 03/16/24 07:40 75 03/16/24 07:26 71 194/97 H 03/16/24 06:37 36.5 C 73 17 179/88 H 91 03/16/24 05:37 36.5 C 65 15 180/96 H 94 03/16/24 05:07 36.4 C L 69 21 184/90 H 96 03/16/24 04:37 36.4 C L 67 14 159/81 H 95 03/16/24 04:18 70 18 94 03/16/24 04:09 67 35 H 95 03/16/24 04:07 36.5 C 62 17 155/83 H 96 03/16/24 03:54 90 03/16/24 03:46 170/111 H 03/16/24 03:45 22 80 L 03/16/24 03:37 36.6 C 67 18 176/97 H 93 03/16/24 03:24 60 15 03/16/24 03:13 183/105 H 03/16/24 03:12 63 18 03/16/24 03:09 78 19 96 03/16/24 03:07 36.6 C 65 18 183/105 H 94 03/16/24 02:44 182/98 H 03/16/24 02:42 76 20 97 03/16/24 02:37 36.6 C 65 15 182/98 H 95 03/16/24 02:30 69 15 96 03/16/24 02:29 167/99 H 03/16/24 02:27 63 18 95 03/16/24 02:21 59 L 18 96 03/16/24 02:15 67 18 97 03/16/24 02:14 173/133 H 03/16/24 02:09 56 L 15 97 03/16/24 02:07 36.6 C 72 14 173/133 H 97 03/16/24 02:00 60 15 98 03/16/24 01:51 66 19 96 03/16/24 01:44 182/92 H 03/16/24 01:42 58 L 17 97 03/16/24 01:37 36.6 C 65 16 182/65 H 94 03/16/24 01:33 58 L 16 96 03/16/24 01:12 58 L 21 96 03/16/24 01:07 36.5 C 69 15 174/97 H 98 03/16/24 00:37 36.6 C 57 L 18 189/96 H 97 03/16/24 00:36 56 L 15 96 03/16/24 00:21 60 16 96 03/16/24 00:18 57 L 17 100 03/16/24 00:07 36.6 C 68 18 190/98 H 92 03/16/24 00:00 65 20 96 03/15/24 23:57 56 L 03/15/24 23:51 171/86 H 03/15/24 23:48 60 17 98 03/15/24 23:45 56 L 17 97 03/15/24 23:37 36.6 C 64 18 156/78 H 96 03/15/24 23:36 156/78 H 03/15/24 23:33 58 L 15 97 03/15/24 23:28 03/15/24 23:22 36.6 C 61 18 156/78 H 97 03/15/24 23:10 36.6 C 61 18 156/78 H 97 03/15/24 23:06 195/112 H 03/15/24 23:05 58 L 20 195/112 H 96 03/15/24 22:54 63 23 95 03/15/24 22:51 36.6 C 58 L 18 188/117 H 96 03/15/24 22:47 188/117 H 03/15/24 22:36 36.4 C L 58 L 18 167/84 H 965 H 03/15/24 22:30 59 L 17 96 03/15/24 22:22 36.5 C 70 20 179/98 H 98 03/15/24 22:21 179/98 H 03/15/24 22:21 62 20 99 03/15/24 22:18 67 19 96 03/15/24 22:09 184/102 H 03/15/24 22:09 63 18 98 03/15/24 22:07 68 22 184/102 H 97 03/15/24 22:06 36.4 C L 03/15/24 22:03 59 L 19 03/15/24 22:01 181/107 H 03/15/24 21:56 03/15/24 21:52 67 22 176/109 H 97 03/15/24 21:50 72 18 176/109 H 95 03/15/24 21:45 78 21 166/95 H 93 03/15/24 21:38 63 16 161/80 H 96 03/15/24 21:36 67 15 97 03/15/24 21:27 78 22 96 O2 Del Method 03/16/24 07:40 03/16/24 07:26 03/16/24 06:37 Room Air 03/16/24 05:37 Room Air 03/16/24 05:07 Room Air 03/16/24 04:37 Room Air 03/16/24 04:18 03/16/24 04:09 03/16/24 04:07 Room Air 03/16/24 03:54 03/16/24 03:46 03/16/24 03:45 03/16/24 03:37 Room Air 03/16/24 03:24 03/16/24 03:13 03/16/24 03:12 03/16/24 03:09 03/16/24 03:07 Room Air 03/16/24 02:44 03/16/24 02:42 03/16/24 02:37 Room Air 03/16/24 02:30 03/16/24 02:29 03/16/24 02:27 03/16/24 02:21 03/16/24 02:15 03/16/24 02:14 03/16/24 02:09 03/16/24 02:07 Room Air 03/16/24 02:00 03/16/24 01:51 03/16/24 01:44 03/16/24 01:42 03/16/24 01:37 Room Air 03/16/24 01:33 03/16/24 01:12 03/16/24 01:07 Room Air 03/16/24 00:37 Room Air 03/16/24 00:36 03/16/24 00:21 03/16/24 00:18 03/16/24 00:07 Room Air 03/16/24 00:00 03/15/24 23:57 03/15/24 23:51 03/15/24 23:48 03/15/24 23:45 03/15/24 23:37 Room Air 03/15/24 23:36 03/15/24 23:33 03/15/24 23:28 Room Air 03/15/24 23:22 Room Air 03/15/24 23:10 Room Air 03/15/24 23:06 03/15/24 23:05 Room Air 03/15/24 22:54 03/15/24 22:51 Room Air 03/15/24 22:47 03/15/24 22:36 Room Air 03/15/24 22:30 03/15/24 22:22 Room Air 03/15/24 22:21 03/15/24 22:21 03/15/24 22:18 03/15/24 22:09 03/15/24 22:09 03/15/24 22:07 Room Air 03/15/24 22:06 03/15/24 22:03 03/15/24 22:01 03/15/24 21:56 Room Air 03/15/24 21:52 Room Air 03/15/24 21:50 Room Air 03/15/24 21:45 Room Air 03/15/24 21:38 Room Air 03/15/24 21:36 Room Air 03/15/24 21:27 Room Air Critical Care Results & Data Vital Signs (Past 12 Hours) Vital Signs Temp Pulse Pulse Resp BP BP Pulse Ox 03/16/24 07:40 75 03/16/24 07:26 71 194/97 H 03/16/24 06:37 36.5 C 73 17 179/88 H 91 03/16/24 05:37 36.5 C 65 15 180/96 H 94 03/16/24 05:07 36.4 C L 69 21 184/90 H 96 03/16/24 04:37 36.4 C L 67 14 159/81 H 95 03/16/24 04:18 70 18 94 03/16/24 04:09 67 35 H 95 03/16/24 04:07 36.5 C 62 17 155/83 H 96 03/16/24 03:54 90 03/16/24 03:46 170/111 H 03/16/24 03:45 22 80 L 03/16/24 03:37 36.6 C 67 18 176/97 H 93 03/16/24 03:24 60 15 03/16/24 03:13 183/105 H 03/16/24 03:12 63 18 03/16/24 03:09 78 19 96 03/16/24 03:07 36.6 C 65 18 183/105 H 94 03/16/24 02:44 182/98 H 03/16/24 02:42 76 20 97 03/16/24 02:37 36.6 C 65 15 182/98 H 95 03/16/24 02:30 69 15 96 03/16/24 02:29 167/99 H 03/16/24 02:27 63 18 95 03/16/24 02:21 59 L 18 96 03/16/24 02:15 67 18 97 03/16/24 02:14 173/133 H 03/16/24 02:09 56 L 15 97 03/16/24 02:07 36.6 C 72 14 173/133 H 97 03/16/24 02:00 60 15 98 03/16/24 01:51 66 19 96 03/16/24 01:44 182/92 H 03/16/24 01:42 58 L 17 97 03/16/24 01:37 36.6 C 65 16 182/65 H 94 03/16/24 01:33 58 L 16 96 03/16/24 01:12 58 L 21 96 03/16/24 01:07 36.5 C 69 15 174/97 H 98 03/16/24 00:37 36.6 C 57 L 18 189/96 H 97 03/16/24 00:36 56 L 15 96 03/16/24 00:21 60 16 96 03/16/24 00:18 57 L 17 100 03/16/24 00:07 36.6 C 68 18 190/98 H 92 03/16/24 00:00 65 20 96 03/15/24 23:57 56 L 03/15/24 23:51 171/86 H 03/15/24 23:48 60 17 98 03/15/24 23:45 56 L 17 97 03/15/24 23:37 36.6 C 64 18 156/78 H 96 03/15/24 23:36 156/78 H 03/15/24 23:33 58 L 15 97 03/15/24 23:28 03/15/24 23:22 36.6 C 61 18 156/78 H 97 03/15/24 23:10 36.6 C 61 18 156/78 H 97 03/15/24 23:06 195/112 H 03/15/24 23:05 58 L 20 195/112 H 96 03/15/24 22:54 63 23 95 03/15/24 22:51 36.6 C 58 L 18 188/117 H 96 03/15/24 22:47 188/117 H 03/15/24 22:36 36.4 C L 58 L 18 167/84 H 965 H 03/15/24 22:30 59 L 17 96 03/15/24 22:22 36.5 C 70 20 179/98 H 98 03/15/24 22:21 179/98 H 03/15/24 22:21 62 20 99 03/15/24 22:18 67 19 96 03/15/24 22:09 184/102 H 03/15/24 22:09 63 18 98 03/15/24 22:07 68 22 184/102 H 97 03/15/24 22:06 36.4 C L 03/15/24 22:03 59 L 19 03/15/24 22:01 181/107 H 03/15/24 21:56 03/15/24 21:52 67 22 176/109 H 97 03/15/24 21:50 72 18 176/109 H 95 03/15/24 21:45 78 21 166/95 H 93 03/15/24 21:38 63 16 161/80 H 96 03/15/24 21:36 67 15 97 03/15/24 21:27 78 22 96 O2 Del Method 03/16/24 07:40 03/16/24 07:26 03/16/24 06:37 Room Air 03/16/24 05:37 Room Air 03/16/24 05:07 Room Air 03/16/24 04:37 Room Air 03/16/24 04:18 03/16/24 04:09 03/16/24 04:07 Room Air 03/16/24 03:54 03/16/24 03:46 03/16/24 03:45 03/16/24 03:37 Room Air 03/16/24 03:24 03/16/24 03:13 03/16/24 03:12 03/16/24 03:09 03/16/24 03:07 Room Air 03/16/24 02:44 03/16/24 02:42 03/16/24 02:37 Room Air 03/16/24 02:30 03/16/24 02:29 03/16/24 02:27 03/16/24 02:21 03/16/24 02:15 03/16/24 02:14 03/16/24 02:09 03/16/24 02:07 Room Air 03/16/24 02:00 03/16/24 01:51 03/16/24 01:44 03/16/24 01:42 03/16/24 01:37 Room Air 03/16/24 01:33 03/16/24 01:12 03/16/24 01:07 Room Air 03/16/24 00:37 Room Air 03/16/24 00:36 03/16/24 00:21 03/16/24 00:18 03/16/24 00:07 Room Air 03/16/24 00:00 03/15/24 23:57 03/15/24 23:51 03/15/24 23:48 03/15/24 23:45 03/15/24 23:37 Room Air 03/15/24 23:36 03/15/24 23:33 03/15/24 23:28 Room Air 03/15/24 23:22 Room Air 03/15/24 23:10 Room Air 03/15/24 23:06 03/15/24 23:05 Room Air 03/15/24 22:54 03/15/24 22:51 Room Air 03/15/24 22:47 03/15/24 22:36 Room Air 03/15/24 22:30 03/15/24 22:22 Room Air 03/15/24 22:21 03/15/24 22:21 03/15/24 22:18 03/15/24 22:09 03/15/24 22:09 03/15/24 22:07 Room Air 03/15/24 22:06 03/15/24 22:03 03/15/24 22:01 03/15/24 21:56 Room Air 03/15/24 21:52 Room Air 03/15/24 21:50 Room Air 03/15/24 21:45 Room Air 03/15/24 21:38 Room Air 03/15/24 21:36 Room Air 03/15/24 21:27 Room Air Lab & Micro Results (Past 24 Hours) RBC 3.96 M/uL (4.70-6.10) L 03/16/24 WBC 9.14 K/ul (4.8-10.8) 03/16/24 Hgb 12.6 g/dl (14.0-18.0) L 03/16/24 Hct 38.9 % (42.0-52.0) L 03/16/24 MCV 94.9 fL (80.0-100.0) 03/16/24 MCH 31.1 pg (25.0-34.0) 03/16/24 MCHC 32.7 g/dL (32.0-36.0) 03/16/24 RDW Standard Deviation 44.6 fL (36.4-46.3) 03/16/24 RDW Coefficient of Variation 12.8 % (11.5-14.5) 03/16/24 Plt Count 146 K/uL (130-400) 03/16/24 MPV 10.7 fL (9.4-12.4) 03/16/24 Neutrophils (%) (Auto) 73.3 % 03/16/24 Lymphocytes (%) (Auto) 14.0 % 03/16/24 Monocytes # (Auto) 0.80 K/uL (0.11-0.59) H 03/16/24 Eosinophils # (Auto) 0.29 K/uL (0.00-0.50) 03/16/24 Immature Granulocyte % (Auto) 0.3 % 03/16/24 Neutrophils # (Auto) 6.70 K/uL (1.40-6.50) H 03/16/24 Lymphocytes # (Auto) 1.28 K/uL (1.20-3.40) 03/16/24 Monocytes # (Auto) 0.80 K/uL (0.11-0.59) H 03/16/24 Eosinophils # (Auto) 0.29 K/uL (0.00-0.50) 03/16/24 Basophils # (Auto) 0.04 K/uL (0.00-0.20) 03/16/24 Immature Granulocyte # (Auto) 0.03 K/uL (0.01-0.20) 4 Na 140 mmol/L (136-145) 03/16/24 K 4.0 mmol/L (3.5-5.1) 03/16/24 Cl 108 mmol/L (98-107) H 03/16/24 CO2 24 mmol/L (21-32) 03/16/24 Anion Gap 8 (3-11) 03/16/24 BUN 39 mg/dl (6-23) H 03/16/24 Creatinine 1.44 mg/dl (0.6-1.4) H 03/16/24 Estimated GFR ( Amer) 50.2 ml/min 03/16/24 Estimated GFR (Non-Af Amer) 43.4 ml/min 03/16/24 BUN/Creatinine Ratio 27.1 (10-20) H 03/16/24 Glu 99 mg/dl (70-99(Fasting)) 03/16/24 Ca 8.3 mg/dl (8.6-10.3) L 03/16/24 Total Bilirubin 0.4 mg/dl (0.2-1.0) 03/16/24 AST 18 U/L (13-39) 03/16/24 ALT 12 U/L (7-52) 03/16/24 Alkaline Phosphatase 99 U/L (34-104) 03/16/24 TP 5.7 gm/dl (6.0-8.3) L 03/16/24 Albumin 3.4 gm/dl (3.4-5.0) 03/16/24 Globulin 2.3 gm/dl (2.5-4.0) L 03/16/24 Albumin/Globulin Ratio 1.5 (0.9-2) 03/16/24 Mg 1.9 mg/dl (1.7-2.4) 03/15/24 20:52 Calcium Level 8.3 mg/dl (8.6-10.3) L 03/16/24 04:31 Prothromb Time International Ratio 1.0 (0.9-1.1) 03/15/24 20:5 2 Diagnostic Findings (Past 24 Hours) Head CT 03/15/24 20:32 CT angio head w con, CT head/brain wo con CLINICAL HISTORY: neuro deficit, acute stroke suspected TECHNIQUE: Contiguous axial CT images of the head were acquired from the base of the skull to the vertex without intravenous contrast administration. CT angiography of the head was performed following intravenous administration of iodinated contrast. Coronal and sagittal MIPS were obtained from the axial data set and were submitted for review. Automated dose lowering techniques and/or adjustment according to patient size were utilized for this examination. All measurements were calculated based on NASCET criteria. CT DOSE: 3325.91 mGy.cm Comparison: None available at the time of this dictation. FINDINGS: CT head: Areas of decreased attenuation are present in the periventricular and subcortical white matter bilaterally consistent with small vessel ischemic disease. Generalized cerebral atrophy with commensurate enlargement of the ventricles, sulci, and cisterns is also present. There is no acute intracranial hemorrhage or evidence of acute territorial infarction. No shift of the midline structures, mass effect, or extra-axial abnormalities are shown. Atherosclerotic calcifications are present in the intracranial segments of the internal carotid arteries. Foci of encephalomalacia compatible with old infarcts. CTA Head: There is abrupt cut off of the left posterior cerebral artery near its origin. origin of the right posterior cerebral artery is seen. IMPRESSION: 1. No acute intracranial hemorrhage, evidence of acute territorial infarction, or other acute intracranial disease process. 2. Abrupt cut off of the left posterior cerebral artery near its origin. Findings are age indeterminate but a left [employer] territory infarct cannot be excluded despite lack of edema on noncontrast CT. Assessment of stenosis of the internal carotid arteries is based on NASCET criteria. ACT 112: Negative or not required by law. Electronically signed by: Darryl Dowell M.D. 03/15/2024 9:16 PM Head CTA 03/15/24 20:32 CT angio head w con, CT head/brain wo con CLINICAL HISTORY: neuro deficit, acute stroke suspected TECHNIQUE: Contiguous axial CT images of the head were acquired from the base of the skull to the vertex without intravenous contrast administration. CT angiography of the head was performed following intravenous administration of iodinated contrast. Coronal and sagittal MIPS were obtained from the axial data set and were submitted for review. Automated dose lowering techniques and/or adjustment according to patient size were utilized for this examination. All measurements were calculated based on NASCET criteria. CT DOSE: 3325.91 mGy.cm Comparison: None available at the time of this dictation. FINDINGS: CT head: Areas of decreased attenuation are present in the periventricular and subcortical white matter bilaterally consistent with small vessel ischemic disease. Generalized cerebral atrophy with commensurate enlargement of the ventricles, sulci, and cisterns is also present. There is no acute intracranial hemorrhage or evidence of acute territorial infarction. No shift of the midline structures, mass effect, or extra-axial abnormalities are shown. Atherosclerotic calcifications are present in the intracranial segments of the internal carotid arteries. Foci of encephalomalacia compatible with old infarcts. CTA Head: There is abrupt cut off of the left posterior cerebral artery near its origin. origin of the right posterior cerebral artery is seen. IMPRESSION: 1. No acute intracranial hemorrhage, evidence of acute territorial infarction, or other acute intracranial disease process. 2. Abrupt cut off of the left posterior cerebral artery near its origin. Findings are age indeterminate but a left [employer] territory infarct cannot be excluded despite lack of edema on noncontrast CT. Assessment of stenosis of the internal carotid arteries is based on NASCET criteria. ACT 112: Negative or not required by law. Electronically signed by: Darryl Dowell M.D. 03/15/2024 9:16 PM Neck CTA 03/15/24 20:32 CT angio neck with con CLINICAL HISTORY: neuro deficit, acute stroke suspected TECHNIQUE: CT angiography of the neck was performed following intravenous administration of iodinated contrast. Coronal and sagittal MIPS were obtained from the axial data set and were submitted for review. Automated dose lowering techniques and/or adjustment according to patient size were utilized for this examination. All measurements were calculated based on NASCET criteria. Comparison: None available at the time of this dictation. FINDINGS: Lungs and soft tissues are unremarkable. CTA Neck: A 3 vessel aortic arch is shown. There is no significant atherosclerotic plaque in the aortic arch or the origins of the innominate, left common carotid, and left subclavian arteries. [place]us course of bilateral carotid arteries noted. Nonhemodynamically significant atherosclerotic disease is seen in the bilateral carotid bulbs. The right vertebral artery is dominant. IMPRESSION: No occlusion, hemodynamically significant stenosis, or dissection in the major cervical arteries. Assessment of stenosis of the internal carotid arteries is based on NASCET criteria. ACT 112: Negative or not required by law. Electronically signed by: Darryl Dowell M.D. 03/15/2024 9:26 PM I & O Totals 24 Hours 03/15/24 03/16/24 03/17/24 06:59 06:59 06:59 Intake Total 1000 / 1000 Output Total 1152 / 1152 Balance -152 / -152 Cumulative 03/15/24 20:16 thru 03/16/24 06:08 Intake Total 1000 Output Total 1152 Balance -152 RT Ventilator Mngmt (Last Documented) Ventilator Ordered Settings Respiratory Rate 17 03/16/24 06:37 Ventilator - PT Measurements Respiratory Rate 17 Coding Level of Care Code 39651 SUB INP/OBS CARE 350MIN Diagnoses Cerebrovascular accident (CVA) due to other mechanism I63.89 CVA mechanism: other ALBIN (acute kidney injury) N17.9 Alzheimer's disease, unspecified G30.9; F02.80 Paroxysmal atrial fibrillation I48.0 (1) Stroke CVA mechanism: other Qualified Code(s): I63.89 - Other cerebral infarction
--- NOTE | 2024-03-16 12:16 | Hospitalist Progress Note ---
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 CTA head showed abrupt cut off of the left posterior cerebral artery. Teleneurology recommended TNKase Patient received TNKase at 2143 last night Symptoms improved He is being monitored in the ICU Neurology consulted Stroke workup in progress. Ordered echocardiogram. Monitor on telemetry MRI ordered Ordered CT head repeat at 9:45 PM tonight, 24 hours after receiving TNKase to rule out head bleed Neurology recommended dual antiplatelet agent for 90 days after repeat head CT rules out bleed, then monotherapy after 90 days Permissive hypertension On statin PT/OT Speech therapy on board. Passed swallow eval. (2) ALBIN (acute kidney injury): Plan: Most likely prerenal from dehydration Improved with IV fluids. 1.4 from 1.9 yesterday Continue to hydrate (3) Alzheimer's disease, unspecified: Plan: May resume home medications tomorrow Patient is slightly confused. (4) Dementia: Plan: See above. (5) BPH w urinary obs/LUTS: Plan: May resume home medications tomorrow Plan Code status: DNR, DNI - daughter in [place] has advanced directive, nursing working on obtaining DVT ppx: chemo ppx contraindicated Admission and Anticipated Discharge Date Admission Date: March 15, 2024 Subjective Patient is confused. He is AO x 1. He is able to move all 4 of his extremities. He just passed a swallow eval. Review of Systems Review of Systems: All systems reviewed & are unremarkable except as noted in Subjective Physical Exam Physical Exam: General: Awake, conversant. Has mitts on. Sitter in the room. Per sitter, he had been trying to pull his catheter and thus he has mitts on. He is AO x 1 Heart: S1, S2/regular rate and rhythm, no murmur rubs or gallops Lungs: Clear to auscultation bilaterally. Normal effort Abdomen: Soft/nontender/nondistended. No hepatosplenomegaly Extremities: No clubbing/cyanosis. No edema Behavior: Appropriate, cooperative Results & Data Results & Data Vital Signs (Past 12 Hours) Vital Signs Temp Pulse Pulse Resp BP BP Pulse Ox 03/16/24 11:37 78 18 160/75 H 91 03/16/24 10:37 66 20 159/84 H 95 03/16/24 09:37 69 18 170/92 H 97 03/16/24 08:37 67 16 159/71 H 96 03/16/24 08:00 03/16/24 07:40 75 03/16/24 07:37 85 18 163/94 H 94 03/16/24 07:26 71 194/97 H 03/16/24 06:37 36.5 C 73 17 179/88 H 91 03/16/24 05:37 36.5 C 65 15 180/96 H 94 03/16/24 05:07 36.4 C L 69 21 184/90 H 96 03/16/24 04:37 36.4 C L 67 14 159/81 H 95 03/16/24 04:18 70 18 94 03/16/24 04:09 67 35 H 95 03/16/24 04:07 36.5 C 62 17 155/83 H 96 03/16/24 03:54 90 03/16/24 03:46 170/111 H 03/16/24 03:45 22 80 L 03/16/24 03:37 36.6 C 67 18 176/97 H 93 03/16/24 03:24 60 15 03/16/24 03:13 183/105 H 03/16/24 03:12 63 18 03/16/24 03:09 78 19 96 03/16/24 03:07 36.6 C 65 18 183/105 H 94 03/16/24 02:44 182/98 H 03/16/24 02:42 76 20 97 03/16/24 02:37 36.6 C 65 15 182/98 H 95 03/16/24 02:30 69 15 96 03/16/24 02:29 167/99 H 03/16/24 02:27 63 18 95 03/16/24 02:21 59 L 18 96 03/16/24 02:15 67 18 97 03/16/24 02:14 173/133 H 03/16/24 02:09 56 L 15 97 03/16/24 02:07 36.6 C 72 14 173/133 H 97 03/16/24 02:00 60 15 98 03/16/24 01:51 66 19 96 03/16/24 01:44 182/92 H 03/16/24 01:42 58 L 17 97 03/16/24 01:37 36.6 C 65 16 182/65 H 94 03/16/24 01:33 58 L 16 96 03/16/24 01:12 58 L 21 96 03/16/24 01:07 36.5 C 69 15 174/97 H 98 03/16/24 00:37 36.6 C 57 L 18 189/96 H 97 03/16/24 00:36 56 L 15 96 03/16/24 00:21 60 16 96 03/16/24 00:18 57 L 17 100 O2 Del Method 03/16/24 11:37 Room Air 03/16/24 10:37 Room Air 03/16/24 09:37 Room Air 03/16/24 08:37 Room Air 03/16/24 08:00 Room Air 03/16/24 07:40 03/16/24 07:37 Room Air 03/16/24 07:26 03/16/24 06:37 Room Air 03/16/24 05:37 Room Air 03/16/24 05:07 Room Air 03/16/24 04:37 Room Air 03/16/24 04:18 03/16/24 04:09 03/16/24 04:07 Room Air 03/16/24 03:54 03/16/24 03:46 03/16/24 03:45 03/16/24 03:37 Room Air 03/16/24 03:24 03/16/24 03:13 03/16/24 03:12 03/16/24 03:09 03/16/24 03:07 Room Air 03/16/24 02:44 03/16/24 02:42 03/16/24 02:37 Room Air 03/16/24 02:30 03/16/24 02:29 03/16/24 02:27 03/16/24 02:21 03/16/24 02:15 03/16/24 02:14 03/16/24 02:09 03/16/24 02:07 Room Air 03/16/24 02:00 03/16/24 01:51 03/16/24 01:44 03/16/24 01:42 03/16/24 01:37 Room Air 03/16/24 01:33 03/16/24 01:12 03/16/24 01:07 Room Air 03/16/24 00:37 Room Air 03/16/24 00:36 03/16/24 00:21 03/16/24 00:18 Laboratory Results Abnormal lab results 03/15/24 03/15/24 03/16/24 Range/Units 20:52 22:19 04:31 RBC 3.56 L 3.96 L (4.70-6.10) M/uL Hgb 11.1 L 12.3 L (14.0-18.0) g/dl Hct 34.1 L 37.6 L (42.0-52.0) % Neut # (Auto) 6.70 H (1.40-6.50) K/uL Lymph # (Auto) 1.16 L (1.20-3.40) K/uL [place] # (Auto) 0.96 H 0.80 H (0.11-0.59) K/uL Chloride 108 H (98-107) mmol/L BUN 44 H 39 H (6-23) mg/dl Creatinine 1.96 H 1.44 H D (0.6-1.4) mg/dl BUN/Creatinine Ratio 22.4 H 27.1 H (10-20) Glucose 115 H (70-99(Fasting)) mg/dl POC Glucose 127 H (70-99) mg/dl Calcium 8.3 L 8.3 L (8.6-10.3) mg/dl Total Protein 5.5 L 5.7 L (6.0-8.3) gm/dl Albumin 3.3 L (3.4-5.0) gm/dl Globulin 2.2 L 2.3 L (2.5-4.0) gm/dl Ur Specific Sheridan > 1.045 H (1.000-1.030) Urine Protein 1+ H (Negative) Urine Ketones Trace H (Negative) Urine RBC (Auto) 3-5 H (0-2) /hpf U Hyaline Cast (Auto) 3-5 H (0-2) /lpf 03/16/24 03/16/24 Range/Units 07:49 11:59 RBC (4.70-6.10) M/uL Hgb 12.4 L (14.0-18.0) g/dl Hct 37.9 L (42.0-52.0) % Neut # (Auto) (1.40-6.50) K/uL Lymph # (Auto) (1.20-3.40) K/uL [place] # (Auto) (0.11-0.59) K/uL Chloride (98-107) mmol/L BUN (6-23) mg/dl Creatinine (0.6-1.4) mg/dl BUN/Creatinine Ratio (10-20) Glucose (70-99(Fasting)) mg/dl POC Glucose 128 H (70-99) mg/dl Calcium (8.6-10.3) mg/dl Total Protein (6.0-8.3) gm/dl Albumin (3.4-5.0) gm/dl Globulin (2.5-4.0) gm/dl Ur Specific Sheridan (1.000-1.030) Urine Protein (Negative) Urine Ketones (Negative) Urine RBC (Auto) (0-2) /hpf U Hyaline Cast (Auto) (0-2) /lpf Diagnostic Findings Head CT 03/15/24 20:32 CT angio head w con, CT head/brain wo con CLINICAL HISTORY: neuro deficit, acute stroke suspected TECHNIQUE: Contiguous axial CT images of the head were acquired from the base of the skull to the vertex without intravenous contrast administration. CT angiography of the head was performed following intravenous administration of iodinated contrast. Coronal and sagittal MIPS were obtained from the axial data set and were submitted for review. Automated dose lowering techniques and/or adjustment according to patient size were utilized for this examination. All measurements were calculated based on NASCET criteria. CT DOSE: 3325.91 mGy.cm Comparison: None available at the time of this dictation. FINDINGS: CT head: Areas of decreased attenuation are present in the periventricular and subcortical white matter bilaterally consistent with small vessel ischemic disease. Generalized cerebral atrophy with commensurate enlargement of the ventricles, sulci, and cisterns is also present. There is no acute intracranial hemorrhage or evidence of acute territorial infarction. No shift of the midline structures, mass effect, or extra-axial abnormalities are shown. Atherosclerotic calcifications are present in the intracranial segments of the internal carotid arteries. Foci of encephalomalacia compatible with old infarcts. CTA Head: There is abrupt cut off of the left posterior cerebral artery near its origin. origin of the right posterior cerebral artery is seen. IMPRESSION: 1. No acute intracranial hemorrhage, evidence of acute territorial infarction, or other acute intracranial disease process. 2. Abrupt cut off of the left posterior cerebral artery near its origin. Findings are age indeterminate but a left CLAY MINE CUTTING MACHINE OPERATOR territory infarct cannot be excluded despite lack of edema on noncontrast CT. Assessment of stenosis of the internal carotid arteries is based on NASCET criteria. ACT 112: Negative or not required by law. Electronically signed by: Darryl Dowell M.D. 03/15/2024 9:16 PM Head CTA 03/15/24 20:32 CT angio head w con, CT head/brain wo con CLINICAL HISTORY: neuro deficit, acute stroke suspected TECHNIQUE: Contiguous axial CT images of the head were acquired from the base of the skull to the vertex without intravenous contrast administration. CT angiography of the head was performed following intravenous administration of iodinated contrast. Coronal and sagittal MIPS were obtained from the axial data set and were submitted for review. Automated dose lowering techniques and/or adjustment according to patient size were utilized for this examination. All measurements were calculated based on NASCET criteria. CT DOSE: 3325.91 mGy.cm Comparison: None available at the time of this dictation. FINDINGS: CT head: Areas of decreased attenuation are present in the periventricular and subcortical white matter bilaterally consistent with small vessel ischemic disease. Generalized cerebral atrophy with commensurate enlargement of the ventricles, sulci, and cisterns is also present. There is no acute intracranial hemorrhage or evidence of acute territorial infarction. No shift of the midline structures, mass effect, or extra-axial abnormalities are shown. Atherosclerotic calcifications are present in the intracranial segments of the internal carotid arteries. Foci of encephalomalacia compatible with old infarcts. CTA Head: There is abrupt cut off of the left posterior cerebral artery near its origin. origin of the right posterior cerebral artery is seen. IMPRESSION: 1. No acute intracranial hemorrhage, evidence of acute territorial infarction, or other acute intracranial disease process. 2. Abrupt cut off of the left posterior cerebral artery near its origin. Findings are age indeterminate but a left CLAY MINE CUTTING MACHINE OPERATOR territory infarct cannot be excluded despite lack of edema on noncontrast CT. Assessment of stenosis of the internal carotid arteries is based on NASCET criteria. ACT 112: Negative or not required by law. Electronically signed by: Darryl Dowell M.D. 03/15/2024 9:16 PM Neck CTA 03/15/24 20:32 CT angio neck with con CLINICAL HISTORY: neuro deficit, acute stroke suspected TECHNIQUE: CT angiography of the neck was performed following intravenous administration of iodinated contrast. Coronal and sagittal MIPS were obtained from the axial data set and were submitted for review. Automated dose lowering techniques and/or adjustment according to patient size were utilized for this examination. All measurements were calculated based on NASCET criteria. Comparison: None available at the time of this dictation. FINDINGS: Lungs and soft tissues are unremarkable. CTA Neck: A 3 vessel aortic arch is shown. There is no significant atherosclerotic plaque in the aortic arch or the origins of the innominate, left common carotid, and left subclavian arteries. [place]us course of bilateral carotid arteries noted. Nonhemodynamically significant atherosclerotic disease is seen in the bilateral carotid bulbs. The right vertebral artery is dominant. IMPRESSION: No occlusion, hemodynamically significant stenosis, or dissection in the major cervical arteries. Assessment of stenosis of the internal carotid arteries is based on NASCET criteria. ACT 112: Negative or not required by law. Electronically signed by: Darryl Dowell M.D. 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
[2024-03-16 12:28] LABS: Hematocrit (blood only) 38.9 % (42.0-52.0); Hemoglobin 12.6 g/dl (14.0-18.0)
--- NOTE | 2024-03-16 13:06 | Magnetic Resonance Report ---
MR brain wo con CLINICAL HISTORY: stroke TECHNIQUE: Multiplanar and multisequence MR images of the brain were obtained without intravenous con trast. Comparison: Comparison is made to MRI brain 12/06/2022 and CTA head and neck 03/15/2024 FINDINGS: Foci of restricted diffusion are seen in the left VICE PRESIDENT AND PORTFOLIO MANAGER distribution most prominent in the medial tempo ral lobe and occipital lobe. There is associated laminar edema and mild hemosiderin deposition in the occipital lobe. Foci of T2 and FLAIR hyperintensity are noted in the paraventricular areas consisten t with chronic small vessel ischemic disease. Ex vacuo ventriculomegaly and sulcal enlargement is not ed compatible with diffuse volume loss. No mass is seen. There is no mass effect or midline shift. Th ere is no evidence of acute intraparenchymal hemorrhage. No extra axial fluid collections are seen. T he corpus callosum, pituitary gland, and cerebellar tonsils appear grossly unremarkable. Flow voids of the major intracranial arterial vessels are identified. The imaged portions of the para nasal sinuses, mastoid air cells, and orbits are unremarkable. IMPRESSION: Restricted diffusion and findings of cortical laminar necrosis compatible with late acute or subacute infarct associated with the left VICE PRESIDENT AND PORTFOLIO MANAGER territory. Of note, abrupt cut off of the left VICE PRESIDENT AND PORTFOLIO MANAGER was noted on CT angiograms performed 03/15/2024 ACT 112: Negative or not required by law. Electronically signed by: Darryl Dowell M.D. 03/16/2024 1:05 PM
[2024-03-16 16:22] LABS: Hematocrit (blood only) 36.7 % (42.0-52.0); Hemoglobin 12.3 g/dl (14.0-18.0)
[2024-03-16 20:55] LABS: Hemoglobin 11.3 g/dl (14.0-18.0)
[2024-03-16] MEDS: TAMSULOSIN HCL 0.4 MG CAP PO SCH (21:12)
--- NOTE | 2024-03-16 22:16 | CT Scan Report ---
CT head/brain wo con CLINICAL HISTORY: 24 hour post TNK-ase Technique: Contiguous axial CT images of the head were acquired from the base of the skull to the gurvinder katherine without intravenous contrast administration. Images were viewed in brain, subdural and bone [facility]. Automated dose lowering techniques and/or adjustment according to patient size were utilized for this exam. Comparison: Comparison is made to CTA head and neck 03/15/2024 and MRI brain 03/16/2024 Findings: Areas of decreased attenuation are present in the periventricular and subcortical white matter bilate rally consistent with small vessel ischemic disease. Generalized cerebral atrophy with commensurate e nlargement of the ventricles, sulci, and cisterns is also present. There is no acute intracranial hem orrhage or evidence of acute territorial infarction. No shift of the midline structures, mass effect, or extra-axial abnormalities are shown. Atherosclerotic calcifications are present in the intracran ial segments of the internal carotid arteries. Imaged portions of the paranasal sinuses and mastoid air cells are clear. The orbits appear normal. There are no acute fractures of the calvaria or scalp swelling. Impression: No acute abnormality and in particular no evidence of intracranial hemorrhage in this patient status post TNKase administration. ACT 112: Negative or not required by law. Electronically signed by: Darryl Dowell M.D. 03/16/2024 10:14 PM
[2024-03-16] MEDS: MELATONIN 3 MG TAB PO PRN (23:31)
[2024-03-17 04:47] LABS: Basophils # (auto) 0.03 K/uL (0.00-0.20); Basophils % (auto) 0.4 %; Eosinophils # (auto) 0.25 K/uL (0.00-0.50); Eosinophils % (auto) 3.3 %; Hematocrit (blood only) 33.3 % (42.0-52.0); Hemoglobin 10.9 g/dl (14.0-18.0); Immature Granulocytes # (auto) 0.04 K/uL (0.01-0.20); Immature Granulocytes % (auto) 0.5 %; Lymphocytes # (auto) 0.97 K/uL (1.20-3.40); Lymphocytes % (auto) 12.9 %; Mean Corpuscular Hemoglobin 30.6 pg (25.0-34.0); Mean Corpuscular Hgb Conc 32.7 g/dL (32.0-36.0); Mean Corpuscular Volume 93.5 fL (80.0-100.0); Mean Platelet Volume 10.9 fL (9.4-12.4); Monocytes # (auto) 0.73 K/uL (0.11-0.59); Monocytes % (auto) 9.7 %; Neutrophils % (auto) 73.2 %; Platelet Count 144 K/uL (130-400); RDW Coefficient of Variation 12.8 % (11.5-14.5); Red Blood Count 3.56 M/uL (4.70-6.10); White Blood Count 7.52 K/ul (4.8-10.8)
--- NOTE | 2024-03-17 08:10 | Neurology Progress Note ---
Date of Service March 17, 2024 Assessment & Plan (1) Ischemic stroke: Admission and Anticipated Discharge Date Admission Date: March 15, 2024 Subjective pt alert and ate his breakfast well this morning. NAD. 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 no bleed. Results & Data Vital Signs (Past 12 Hours) Vital Signs Temp Pulse Pulse Resp BP BP Pulse Ox 03/17/24 04:00 68 18 161/90 H 94 03/17/24 03:00 107 H 20 154/71 H 95 03/17/24 02:09 72 22 144/83 H 95 03/17/24 01:03 76 21 155/77 H 96 03/17/24 00:09 73 23 149/89 H 92 03/17/24 00:00 82 03/16/24 23:03 77 20 162/86 H 90 03/16/24 22:09 37 C 73 20 147/77 H 93 03/16/24 21:46 36.6 C 77 18 158/88 H 96 03/16/24 20:46 36.6 C 82 20 150/81 H 96 O2 Del Method 03/17/24 04:00 Room Air 03/17/24 03:00 03/17/24 02:09 03/17/24 01:03 03/17/24 00:09 03/17/24 00:00 03/16/24 23:03 03/16/24 22:09 03/16/24 21:46 Room Air 03/16/24 20:46 Room Air Exam (Neuro) Physical Exam: Neuro: Mental: Alert, follows command well. not sure of year or his age. knew his name. not sure of his family situation, fluent speech, , no apraxia, no neglect. CN: PERRL, Full EOM, symmetric face, midline T/U/P, 5/5 SCM/traps. Motor: No abnormal movements, normal tone and bulk, 5/5 t/o bilaterally t/o Coord: intact grossly upper limbs. Impression: 88 yo male, DNI/DNR, with resolved rt side hemiparesis, s/p TNKase setting of known vacular dementia, ?paroxysmal atrial fib, ALBIN. Pt overall doing well clinically without sign of bleed. MRI brain showing subacute appearing left MARKETING SPECIALIST area ischemic stroke. no bleed. Recommendations: continue DAPT for 90 days. pending echo ok to transfer out of ICU no need for permissive HTN anymore SBP goal less than 140 LDL less than 70 call again if new question. Chart reviewed I have spent more than 50% educating patient about potential diagnosis and neurological evaluation and coordinating care with patient's treatment team. Total time spent (including chart review and coordination of care): 50 min (this includes chart review). PG Care Time/CCT Total # of Minutes Spent Total Time Spent with Patient: Total time spent is greater than 50% in coordination of care (as documented) at patient's floor/unit and/or counseling patient: Coding Level of Care Code 58512 SUB INP/OBS CARE 3/50MIN Diagnoses Ischemic stroke I63.9
[2024-03-17 08:16] LABS: BUN Creatinine Ratio 21.9 (10-20); Calcium 8.3 mg/dl (8.6-10.3); Creatinine Clr Calc Pharmacy 48.6 ml/min; Est GFR (African American) 57.9 ml/min; Potassium 4.1 mmol/L (3.5-5.1)
[2024-03-17] MEDS: CLOPIDOGREL BISULFATE 75 MG TAB PO SCH (08:17)
[2024-03-17] MEDS: ASPIRIN 81 MG ECTAB PO SCH (08:17)
--- NOTE | 2024-03-17 08:59 | Critical Care Progress Note ---
Date of Service March 17, 2024 Assessment & Plan (1) Stroke: Plan: Impression: 88-year-old male with history of dementia/Alzheimer's, paroxysmal A- fib who presents to the ICU following strokelike symptoms with right-sided weakness and right facial droop. Patient underwent CTA head which showed abrupt cut off of the left posterior cerebral artery near origin and could not rule out ELECTROMAGNET CRANE OPERATOR territory infarct although CT head unremarkable. Patient received TNKase an d is now admitted to ICU for 24-hour post TNKase monitoring. Neuro - Acute CVA?Patient with right-sided weakness and right-sided facial droop. Received TNKase at 2143. -Reviewed neurology notes. -MRI results reviewed Alzheimer's dementiaappears to be mildly confused at baseline but pleasant And cooperative on exam. Continue Aricept, memantine Cardiac - History of paroxysmal A-fibcurrently on atenolol, does not appear to be anticoagulated - Currently sinus rhythm on monitor. Continuous monitoring on telemetry Respiratory - No history of pulmonary disease. Currently maintaining oxygen saturations on room air. Continuous monitoring on pulse ox GI - Carb consistent heart healthy diet RENAL/LYTES - ALBIN Creatinine improving - BPHcontinue tamsulosin -Self discontinued Morales x 2 -After Morales was removed the second time we have left it out will follow closely for acute urinary retention, urology also following ENDO - No history of diabetes or thyroid disease. ICU hyperglycemic protocol HEME - H&H stable, monitor routine CBCs. Monitor for bleeding following TNKase administration ID - No indication for infectious process at this time LINES/IV ACCESS - Peripheral IVs DVT PROPHYLAXIS - SCDs, hold anticoagulation for now following TNKase administration (2) ALBIN (acute kidney injury): (3) Alzheimer's disease, unspecified: (4) Paroxysmal atrial fibrillation: Admission and Anticipated Discharge Date Admission Date: March 15, 2024 Results & Data Results & Data Vital Signs (Past 12 Hours) Vital Signs Temp Pulse Pulse Resp BP BP Pulse Ox 03/17/24 04:00 68 18 161/90 H 94 03/17/24 03:00 107 H 20 154/71 H 95 03/17/24 02:09 72 22 144/83 H 95 03/17/24 01:03 76 21 155/77 H 96 03/17/24 00:09 73 23 149/89 H 92 03/17/24 00:00 82 03/16/24 23:03 77 20 162/86 H 90 03/16/24 22:09 37 C 73 20 147/77 H 93 03/16/24 21:46 36.6 C 77 18 158/88 H 96 O2 Del Method 03/17/24 04:00 Room Air 03/17/24 03:00 03/17/24 02:09 03/17/24 01:03 03/17/24 00:09 03/17/24 00:00 03/16/24 23:03 03/16/24 22:09 03/16/24 21:46 Room Air Critical Care Results & Data Vital Signs (Past 12 Hours) Vital Signs Temp Pulse Pulse Resp BP BP Pulse Ox 03/17/24 04:00 68 18 161/90 H 94 03/17/24 03:00 107 H 20 154/71 H 95 03/17/24 02:09 72 22 144/83 H 95 03/17/24 01:03 76 21 155/77 H 96 03/17/24 00:09 73 23 149/89 H 92 03/17/24 00:00 82 03/16/24 23:03 77 20 162/86 H 90 03/16/24 22:09 37 C 73 20 147/77 H 93 03/16/24 21:46 36.6 C 77 18 158/88 H 96 O2 Del Method 03/17/24 04:00 Room Air 03/17/24 03:00 03/17/24 02:09 03/17/24 01:03 03/17/24 00:09 03/17/24 00:00 03/16/24 23:03 03/16/24 22:09 03/16/24 21:46 Room Air Lab & Micro Results (Past 24 Hours) RBC 3.56 M/uL (4.70-6.10) L 03/17/24 WBC 7.52 K/ul (4.8-10.8) 03/17/24 Hgb 10.9 g/dl (14.0-18.0) L 03/17/24 Hct 33.3 % (42.0-52.0) L 03/17/24 MCV 93.5 fL (80.0-100.0) 03/17/24 MCH 30.6 pg (25.0-34.0) 03/17/24 MCHC 32.7 g/dL (32.0-36.0) 03/17/24 RDW Standard Deviation 44.0 fL (36.4-46.3) 03/17/24 RDW Coefficient of Variation 12.8 % (11.5-14.5) 03/17/24 Plt Count 144 K/uL (130-400) 03/17/24 MPV 10.9 fL (9.4-12.4) 03/17/24 Neutrophils (%) (Auto) 73.2 % 03/17/24 Lymphocytes (%) (Auto) 12.9 % 03/17/24 Monocytes # (Auto) 0.73 K/uL (0.11-0.59) H 03/17/24 Eosinophils # (Auto) 0.25 K/uL (0.00-0.50) 03/17/24 Immature Granulocyte % (Auto) 0.5 % 03/17/24 Neutrophils # (Auto) 5.50 K/uL (1.40-6.50) 03/17/24 Lymphocytes # (Auto) 0.97 K/uL (1.20-3.40) L 03/17/24 Monocytes # (Auto) 0.73 K/uL (0.11-0.59) H 03/17/24 Eosinophils # (Auto) 0.25 K/uL (0.00-0.50) 03/17/24 Basophils # (Auto) 0.03 K/uL (0.00-0.20) 03/17/24 Immature Granulocyte # (Auto) 0.04 K/uL (0.01-0.20) 4 Na 139 mmol/L (136-145) 03/17/24 K 4.1 mmol/L (3.5-5.1) 03/17/24 Cl 105 mmol/L (98-107) 03/17/24 CO2 28 mmol/L (21-32) 03/17/24 Anion Gap 6 (3-11) 03/17/24 BUN 28 mg/dl (6-23) H 03/17/24 Creatinine 1.28 mg/dl (0.6-1.4) 03/17/24 Estimated GFR ( Amer) 57.9 ml/min 03/17/24 Estimated GFR (Non-Af Amer) 50.0 ml/min 03/17/24 BUN/Creatinine Ratio 21.9 (10-20) H 03/17/24 Glu 101 mg/dl (70-99(Fasting)) H 03/17/24 Ca 8.3 mg/dl (8.6-10.3) L 03/17/24 Calcium Level 8.3 mg/dl (8.6-10.3) L 03/17/24 07:37 Diagnostic Findings (Past 24 Hours) Brain MRI 03/16/24 00:28 MR brain wo con CLINICAL HISTORY: stroke TECHNIQUE: Multiplanar and multisequence MR images of the brain were obtained without intravenous contrast. Comparison: Comparison is made to MRI brain 12/06/2022 and CTA head and neck 03/15/2024 FINDINGS: Foci of restricted diffusion are seen in the left ELECTROMAGNET CRANE OPERATOR distribution most prominent in the medial temporal lobe and occipital lobe. There is associated laminar edema and mild hemosiderin deposition in the occipital lobe. Foci of T2 and FLAIR hyperintensity are noted in the paraventricular areas consistent with chronic small vessel ischemic disease. Ex vacuo ventriculomegaly and sulcal enlargement is noted compatible with diffuse volume loss. No mass is seen. There is no mass effect or midline shift. There is no evidence of acute intraparenchymal hemorrhage. No extra axial fluid collections are seen. The corpus callosum, pituitary gland, and cerebellar tonsils appear grossly unremarkable. Flow voids of the major intracranial arterial vessels are identified. The imaged portions of the paranasal sinuses, mastoid air cells, and orbits are unremarkable. IMPRESSION: Restricted diffusion and findings of cortical laminar necrosis compatible with late acute or subacute infarct associated with the left ELECTROMAGNET CRANE OPERATOR territory. Of note, abrupt cut off of the left ELECTROMAGNET CRANE OPERATOR was noted on CT angiograms performed 03/15/2024 ACT 112: Negative or not required by law. Electronically signed by: Darryl Dowell M.D. 03/16/2024 1:[address] 03/16/24 21:45 CT head/brain wo con CLINICAL HISTORY: 24 hour post TNK-ase Technique: Contiguous axial CT images of the head were acquired from the base of the skull to the vertex without intravenous contrast administration. Images were viewed in brain, subdural and bone windows. Automated dose lowering techniques and/or adjustment according to patient size were utilized for this exam. Comparison: Comparison is made to CTA head and neck 03/15/2024 and MRI brain 03/16/2024 Findings: Areas of decreased attenuation are present in the periventricular and subcortical white matter bilaterally consistent with small vessel ischemic disease. Generalized cerebral atrophy with commensurate enlargement of the ventricles, sulci, and cisterns is also present. There is no acute intracranial hemorrhage or evidence of acute territorial infarction. No shift of the midline structures, mass effect, or extra-axial abnormalities are shown. Atherosclerotic calcifications are present in the intracranial segments of the internal carotid arteries. Imaged portions of the paranasal sinuses and mastoid air cells are clear. The orbits appear normal. There are no acute fractures of the calvaria or scalp swelling. Impression: No acute abnormality and in particular no evidence of intracranial hemorrhage in this patient status post TNKase administration. ACT 112: Negative or not required by law. Electronically signed by: Darryl Dowell M.D. 03/16/2024 10:14 PM I & O Totals 24 Hours 03/16/24 03/17/24 03/18/24 06:59 06:59 06:59 Intake Total 1000 / 1000 1360 / 1360 Output Total 1152 / 1152 852 / 852 Balance -152 / -152 508 / 508 Cumulative 03/15/24 20:16 thru 03/17/24 03:59 Intake Total 2360 Output Total 2004 Balance 356 RT Ventilator Mngmt (Last Documented) Ventilator Ordered Settings Respiratory Rate 18 03/17/24 04:00 Ventilator - PT Measurements Respiratory Rate 18 Coding Diagnoses Cerebrovascular accident (CVA) due to other mechanism I63.89 CVA mechanism: other ALBIN (acute kidney injury) N17.9 Alzheimer's disease, unspecified G30.9; F02.80 Paroxysmal atrial fibrillation I48.0 (1) Stroke CVA mechanism: other Qualified Code(s): I63.89 - Other cerebral infarction
--- NOTE | 2024-03-17 11:46 | Pharmacy Report ---
- Date of Service March 17, 2024 - Pharmacy CVA/TIA Medication Review Medications to Prevent Stroke handout has been added to the patients discharge packet. Antiplatelet(s) * Aspirin and clopidogrel Cholesterol * High intensity statin: atorvastatin 40 mg daily DVT Prophylaxis * SCD knee Therapeutic Anticoagulation * Hx Afib/Aflutter noted, but anticoagulation is being deferred due to risk for falls per Dr. Lugo Type 2 Diabetes * Patient does not have T2DM
--- NOTE | 2024-03-17 12:05 | XCELERA ---
[id number] \\[id number]\[id number]
[2024-03-17] MEDS: ATORVASTATIN 40 MG TAB PO SCH (12:13)
--- NOTE | 2024-03-17 12:18 | Hospitalist Progress Note ---
Date of Service March 17, 2024 Assessment & Plan (1) Stroke aborted by administration of thrombolytic agent: Plan: Patient presented with right-sided weakness and facial droop along with some aphasia. CTA head showed abrupt cut off of the left posterior cerebral artery. Teleneurology recommended TNKase Patient received TNKase at 2143 6/2 Symptoms improved Repeat head CT was negative for bleed MRI showed acute infarct in the left HUMAN RESOURCES ANALYST territory He is being monitored in the ICU Neurology on board Now that head bleed has been ruled out post tPA, patient has been started on aspirin and Plavix to be continued for 90 days and then monotherapy thereafter Started on Lipitor 40 mg Will allow permissive hypertension Patient is having some tachycardia episodes with activity. He has a history of paroxysmal atrial tachycardia versus paroxysmal atrial fibrillation. I will switch from atenolol to metoprolol to help with the tachycardia Echocardiogram reviewed. Showed ejection fraction of 40 to 45%. No prior study available for comparison (2) ALBIN (acute kidney injury): Plan: Most likely prerenal from dehydration Improved with IV fluids Creatinine went down from 1.9-1.2 today Discontinue IV fluids (3) Alzheimer's disease, unspecified: Plan: Home medications resumed (4) Dementia: Plan: See above. (5) BPH w urinary obs/LUTS: Plan: On Flomax Plan Code status: DNR, DNI - daughter in [place] has advanced directive, nursing working on obtaining DVT ppx: chemo ppx contraindicated Patient will be medically stable for discharge tomorrow Admission and Anticipated Discharge Date Admission Date: March 15, 2024 Subjective Patient remains confused. Per nurse, his daughter stated that this is his baseline. Denies chest pain or shortness of breath. Review of Systems Review of Systems: All systems reviewed & are unremarkable except as noted in Subjective Physical Exam Physical Exam: General: Awake, conversant. He is AO x 1 Heart: S1, S2/regular rate and rhythm, no murmur rubs or gallops Lungs: Clear to auscultation bilaterally. Normal effort Abdomen: Soft/nontender/nondistended. No hepatosplenomegaly Extremities: No clubbing/cyanosis. No edema Behavior: Appropriate, cooperative Results & Data Results & Data Vital Signs (Past 12 Hours) Vital Signs Temp Pulse Resp BP Pulse Ox O2 Del Method 03/17/24 09:00 74 19 95 03/17/24 08:20 168/111 H 03/17/24 08:18 75 19 94 03/17/24 08:09 75 21 93 03/17/24 08:00 74 03/17/24 08:00 36.6 C 03/17/24 07:03 83 19 93 03/17/24 04:00 68 18 161/90 H 94 Room Air 03/17/24 03:00 107 H 20 154/71 H 95 03/17/24 02:09 72 22 144/83 H 95 03/17/24 01:03 76 21 155/77 H 96 Laboratory Results Abnormal lab results 03/16/24 03/16/24 03/16/24 Range/Units 12:15 16:08 19:54 RBC (4.70-6.10) M/uL Hgb 12.6 L 12.3 L (14.0-18.0) g/dl Hct 38.9 L 36.7 L (42.0-52.0) % Lymph # (Auto) (1.20-3.40) K/uL [place] # (Auto) (0.11-0.59) K/uL BUN (6-23) mg/dl BUN/Creatinine Ratio (10-20) Glucose (70-99(Fasting)) mg/dl POC Glucose 110 H (70-99) mg/dl Calcium (8.6-10.3) mg/dl 03/16/24 03/17/24 03/17/24 Range/Units 20:42 04:15 07:37 RBC 3.56 L (4.70-6.10) M/uL Hgb 11.3 L 10.9 L (14.0-18.0) g/dl Hct 34.0 L 33.3 L (42.0-52.0) % Lymph # (Auto) 0.97 L (1.20-3.40) K/uL [place] # (Auto) 0.73 H (0.11-0.59) K/uL BUN 28 H (6-23) mg/dl BUN/Creatinine Ratio 21.9 H (10-20) Glucose 101 H (70-99(Fasting)) mg/dl POC Glucose (70-99) mg/dl Calcium 8.3 L (8.6-10.3) mg/dl PG Care Time/CCT Total # of Minutes Spent Total Time Spent with Patient: Total time spent is greater than 50% in coordination of care (as documented) at patient's floor/unit and/or counseling patient: Coding Level of Care Code 95858 SUB INP/OBS CARE 2/35MIN Diagnoses 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
[2024-03-17] MEDS: METOPROLOL SUCC 25MG EXT REL TAB PO SCH (12:56)
[2024-03-17] MEDS: METOPROLOL TARTRATE 25 MG TAB PO SCH (13:02)
--- NOTE | 2024-03-18 05:33 | Electrocardiogram Report ---
Test Reason : Blood Pressure : / mmHG Vent. Rate : 067 BPM Atrial Rate : 067 BPM P-R Int : 366 ms QRS Dur : 166 ms QT Int : 490 ms P-R-T Axes : 032 -47 098 degrees QTc Int : 517 ms Sinus rhythm with 1st degree A-V block with Premature supraventricular complexes Left axis deviation Left bundle branch block Abnormal ECG When compared with ECG of 10-NOV-2021 03:51, Left bundle branch block is now Present Confirmed by Pankaj Harrison ([id number]) on 03/18/2024 5:32:43 AM Referred By: Emma Webster Confirmed By:Pankaj Harrison
[2024-03-18 06:15] LABS: Basophils # (auto) 0.03 K/uL (0.00-0.20); Basophils % (auto) 0.4 %; Eosinophils # (auto) 0.33 K/uL (0.00-0.50); Eosinophils % (auto) 4.6 %; Immature Granulocytes # (auto) 0.02 K/uL (0.01-0.20); Immature Granulocytes % (auto) 0.3 %; Lymphocytes # (auto) 0.95 K/uL (1.20-3.40); Lymphocytes % (auto) 13.3 %; Mean Corpuscular Hgb Conc 33.3 g/dL (32.0-36.0); Monocytes # (auto) 0.76 K/uL (0.11-0.59); Monocytes % (auto) 10.7 %; Neutrophils # (auto) 5.03 K/uL (1.40-6.50); Neutrophils % (auto) 70.7 %; Platelet Count 146 K/uL (130-400); RDW Coefficient of Variation 12.8 % (11.5-14.5); RDW Standard Deviation 43.8 fL (36.4-46.3); Red Blood Count 3.55 M/uL (4.70-6.10); White Blood Count 7.12 K/ul (4.8-10.8)
[2024-03-18] MEDS: ACETAMINOPHEN 325 MG TAB PO PRN (10:11)
--- NOTE | 2024-03-18 13:12 | Discharge Summary ---
Date of Service March 18, 2024 Admission HPI Per Admitting Provider 88 male with a PMHx of dementia and BPH presented with acute change in neurological status from [facility]. Right sided weakness of upper and lower extremities and facial droop. Unable to carry a conversation. Stroke alert was called and protocol followed. [place] telestroke consulted. Patient with interval improvement, but not back at baseline. Decision made to give TNKase. Neurological status continued to improve. 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 He is AO x 1 Heart: S1, S2/regular rate and rhythm, no murmur rubs or gallops Lungs: Clear to auscultation bilaterally. Normal effort Abdomen: Soft/nontender/nondistended. No hepatosplenomegaly Extremities: No clubbing/cyanosis. No edema Behavior: Appropriate, cooperative Discharge Data Allergies Allergy/AdvReac Type Severity Reaction Status Date / Time diclofenac [From Voltaren] Allergy Mild Rash Verified 03/15/24 22:58 Consultations 03/15/24 22:15 ED Decision to Admit Stat 03/15/24 23:57 Consult Special Education Instructor Routine Consult Neurology Routine 03/16/24 06:21 Consult Urology Routine Ordered Studies 03/15/24 20:32 CT angio head w con Stat CT angio neck with con Stat CT head/brain wo con Stat 03/16/24 00:28 MR brain wo con Routine 03/16/24 21:[address] [CT head/brain wo con] Routine Hospital Course (1) Stroke aborted by administration of thrombolytic agent: Patient presented with right-sided weakness and facial droop along with some aphasia. CTA head showed abrupt cut off of the left posterior cerebral artery. Teleneurology recommended TNKase Patient received TNKase at 2143 6/2 Symptoms improved Repeat head CT was negative for bleed MRI showed acute infarct in the left PARACHUTE CUSHION INSTALLER territory Neurology on board Now that head bleed has been ruled out post tPA, patient has been started on aspirin and Plavix to be continued for 90 days and then monotherapy thereafter Started on Lipitor 40 mg Patient is having some tachycardia episodes with activity. He has a history of paroxysmal atrial tachycardia versus paroxysmal atrial fibrillation. I have switched him from atenolol to metoprolol to help with the tachycardia Echocardiogram reviewed. Showed ejection fraction of 40 to 45%. No prior study available for comparison (2) ALBIN (acute kidney injury): Most likely prerenal from dehydration Improved with IV fluids Creatinine went down from 1.9-1.2 today Discontinued IV fluids (3) Alzheimer's disease, unspecified: Home medications resumed (4) Dementia: See above. 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 Advised to note that you need to be on dual antiplatelet agents including aspirin and Plavix for 90 days. After 90 days, your doctor will decide to stop either aspirin or Plavix. Advised to note that you are also being discharged on a cholesterol-lowering agent to prevent a next stroke Advised to note that your atenolol has been changed to metoprolol Pending Studies at Discharge: No Stand-Alone Forms: My [facility] [employer], Medications to Prevent Stroke Skilled Items Patient informed of condition?: Yes DNR: Yes Discharge Level of Care: Skilled Communicable Disease: No Discharge Prognosis: Stable Lines: None Urinary Catheter: No Medications and DC Order Prescriptions: New atorvastatin 40 mg Tablet 40 mg PO QAM 30 Days Qty: 30 0RF clopidogrel 75 mg Tablet 75 mg PO QAM 30 Days Qty: 30 0RF aspirin 81 mg Tablet,Delayed Release (Dr/Ec) 81 mg PO QAM 30 Days Qty: 30 0RF metoprolol succinate 25 mg Tablet Extended Release 24 Hr 25 mg PO QAM 30 Days Qty: 30 0RF Continued multivitamin Tablet 1 tab PO DAILY acetaminophen [Tylenol] 325 mg Tablet 650 mg PO Q4 PRN (Reason: Fever Or Pain) donepezil [Aricept] 5 mg Tablet 5 mg PO DAILY polyethylene glycol 3350 [Miralax] 17 gram Powder In Packet 17 g PO .Q72HRS PRN (Reason: Constipation) acetaminophen [Tylenol Arthritis Pain] 650 mg Tablet Extended Release 650 mg PO BID Rx Instructions: for knee pain famotidine 20 mg Tablet 20 mg PO BID tamsulosin 0.4 mg Capsule 0.4 mg PO HS melatonin 1 mg Tablet 2 mg PO HS duloxetine [Cymbalta] 30 mg Capsule,Delayed Release(Dr/Ec) 30 mg PO DAILY Rx Instructions: Give in afternoon duloxetine 60 mg Capsule,Delayed Release(Dr/Ec) 60 mg PO DAILY PreserVision AREDS 2,148 mcg-113 mg-45 mg-17.4mg Tablet 1 tab PO BID Rx Instructions: administer with AM and PM meals Systane Balance 0.6 % Drops 2 drp OPB BID memantine 10 mg Tablet 10 mg PO BID Discontinued atenolol 25 mg Tablet 25 mg PO DAILY Discharge Orders: Discharge Order (Routine); Ordered 03/18/24 Ordered By: Lucy Castorena/Other Patient Handouts: Anticoagulants, Acute Kidney Failure Dc, Risk Factors for Stroke, Stroke Regaining Movement, Falls Prevent Use Cane Walker Admission Data Admit Date/Time: 03/15/24 22:36 Attending Provider: Lucy Lugo Admit Provider: [place] Mckeon Primary Care Provider: Emma Webster Other Providers: Paul Tyler Macon; Carlos Medina; Tyler Castillo; Marycarmen Crouch Charles M.; Bernard Simon; Nilton Yu; Kaitlin Hogan; Ab Ambriz; Eugenia Templeton; Esthela Humphreys; Mainor Roblero; Tabitha Mon; Esdras Curiel; Debbie Dempsey; Ceasar Henry Other Interventions: Discharge Summary Assessment (RN) Last Done: 03/18/24 11:19 Coding Level of Care Code 50079 INP/OBS DISCH >30 MIN Diagnoses 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
--- NOTE | 2024-03-20 06:15 | Electrocardiogram Report ---
Test Reason : Blood Pressure : / mmHG Vent. Rate : 075 BPM Atrial Rate : 075 BPM P-R Int : 298 ms QRS Dur : 160 ms QT Int : 436 ms P-R-T Axes : 082 -38 106 degrees QTc Int : 486 ms Sinus rhythm with 1st degree A-V block Left axis deviation Left bundle branch block Abnormal ECG When compared with ECG of 15-MAR-2024 20:48, Premature supraventricular complexes are no longer Present Confirmed by Pankaj Harrison ([id number]) on 03/20/2024 6:15:24 AM Referred By: Emma Webster Confirmed By:Pankaj Harrison
== END 2024-03-18 14:29 | DRG 62 ==
LOC: ED 20:25 → SUATTDRO 22:36 → 1E 22:36 → 2W 03-17 17:37